=== PATIENT | female | born 1940 | race Caucasian/White ===

== ENCOUNTER 2016-10-03 19:12 | Inpatient (IN) | payer MEDICARE, MEDICAID ==
--- NOTE | 2016-10-03 20:36 | ED Physician Chart ---
Chief Complaint/HPI - Patient Information Date Seen:: 10/03/16 Time Seen:: 18:00 Chief Complaint:: CONFUSION History of Present Illness:: THIS IS A 76 YO FEMALE SENT FROM THE [facility] FOR A PSYCH EVALUATION AND TREATMENT BECAUSE OF HER CONFUSING BEHAVIOR. SHE HAS A HISTORY OF HTN DEMENTIA CVA AND MAJOR DEPRESSION. Historian:: Patient, Medical Records Review:: Nurse's Note Reviewed Review of Systems - Review of Systems General/Constitutional: Fever, No fever, No chills, No weight loss, No weakness , No diaphoresis, No edema, No loss of appetite, Other (THE PATIENT IS CONFUSED AND UNABLE TO GIVE A REVIEW OF SYSTEMS.) Skin: No skin lesions, No rash, No bruising Head: No headache, No light-headedness Eyes: No loss of vision, No pain, No diplopia ENT: No earache, No nasal drainage, No sore throat, No tinnitus Neck: No neck pain, No swelling, No thyromegaly, No stiffness, No mass noted Cardio Vascular: No chest pain, No palpitations, No PND, No orthopnea, No edema Pulmonary: No SOB, No cough, No sputum, No wheezing GI: No nausea, No vomiting, No diarrhea, No pain, No melena, No hematochezia, No constipation, No hematemesis G/U: No dysuria, No frequency, No hematuria Musculoskeletal: No bone or joint pain, No back pain, No muscle pain Endocrine: No polyuria, No polydipsia Psychiatric: No prior psych history, No depression, No anxiety, No suicidal ideation Hematopoietic: No bruising, No lymphadenopathy Allergic/Immuno: No urticaria, No angioedema Neurological: No syncope, No focal symptoms, No weakness, No paresthesia, No headache, No seizure, No dizziness, No confusion, No vertigo Past Medical History - Past Medical History Obtainable: Yes Past Medical History: CVA/TIA, Dyslipidemia, Dementia, Other (ANEMIA) Family History: None Social History: Non Smoker, No Alcohol, No Drug Use Family Medical History - Family Member Mother History Unknown: Yes Physical Exam - Physical Examination General/Constitutional: Awake, Well-developed, well-nourished, Alert, No distress, GCS 15, Non-toxic appearing, Ambulatory Other Gen/Cons comments:: THE PATIENT IS SCREAMING AND DISORIENTED TIMES 4 AND DOES NOT RESPOND TO VERBAL STIMULI SHE IS VERY DRY. Head: Atraumatic Eyes: Lids, conjuctiva normal, PERRL, EOMI Skin: Nl inspection, No rash, No skin lesions, No ecchymosis, Well hydrated, No lymphadenopathy ENMT: External ears, nose nl, Nasal exam nl, Lips, teeth, gums nl Neck: Nontender, Full ROM w/o pain, No JVD, No nuchal rigidity, No bruit, No mass, No stridor Respiratory: Nl effort/Exclusion Other Respiratory comments:: THERE ARE BILATERAL RHONCHI HEARD AND HILAR AREA DECREASE BREATH SOUNDS. Cardio Vascular: RRR, No murmur, gallop, rubs, NL S1 S2 GI: No tenderness/rebounding/guarding, No organomegaly, No hernia, Normal BS's, Nondistended, No mass/bruits, No McBurney tenderness : No CVA tenderness Other comments:: THE PATIENT IS INCONT OF URINE Extremities: No tenderness or effusion, Full ROM, normal strength in all extremities, No edema, Normal digits & nails Other Extremities comments:: THERE IS SIGNIFICANT MUSCLE WASTING IN ALL FOUR EXTREMITIES WITH MILD SPASTICITY. SHE HAS A RIGHT BK . Neuro/Psych: DTR's symmetric, Normal sensory exam, Normal motor strength, Judgement/insight normal, Mood normal, Normal gait, No focal deficits Other Neuro/Psych comments:: THIS PATIENT IS OBTUNDED INTERMITTENTLY AND DISORIENTED. Misc: normal gait, Normal back, No paraspinal tenderness Labs/Radiology/EKG Results - Lab Results Results: Abnormal Lab Results 10/03/16 10/03/16 10/03/16 20:08 20:08 20:08 WBC 9.6 RBC 3.29 L Hgb 8.5 L Hct 25.8 L MCV 78.3 L MCH 25.8 L MCHC Differential 32.9 RDW 19.4 Plt Count 261 MPV 8.0 Neutrophils % 76.9 Lymphocytes % 13.3 L Monocytes % 6.8 Eosinophils % 2.4 Basophils % 0.6 PT 12.2 H INR 1.21 Specimen Source Sample Site pH pCO2 pO2 HCO3 Base Excess O2 Saturation Will Test Vent Rate Inspired O2 Tidal Volume PEEP Pressure (ins/psv/peep) Critical Value Sodium Potassium Chloride Carbon Dioxide Anion Gap BUN Creatinine Est GFR ( Amer) Est GFR (Non-Af Amer) BUN/Creatinine Ratio Glucose Hemoglobin A1c % Calcium Total Bilirubin AST ALT Alkaline Phosphatase Troponin I Total Protein Albumin Globulin Albumin/Globulin Ratio Triglycerides 106 Cholesterol 97 LDL Cholesterol Direct 42 L HDL Cholesterol 38 TSH 10/03/16 10/03/16 10/03/16 20:08 20:08 20:08 WBC RBC Hgb Hct MCV MCH MCHC Differential RDW Plt Count MPV Neutrophils % Lymphocytes % Monocytes % Eosinophils % Basophils % PT INR Specimen Source Sample Site pH pCO2 pO2 HCO3 Base Excess O2 Saturation Will Test Vent Rate Inspired O2 Tidal Volume PEEP Pressure (ins/psv/peep) Critical Value Sodium 136 Potassium 6.5 H* Chloride 108 H Carbon Dioxide 26.5 Anion Gap 8.0 BUN 59 H Creatinine 2.8 H Est GFR ( Amer) TNP Est GFR (Non-Af Amer) TNP BUN/Creatinine Ratio 21.1 Glucose 195 H Hemoglobin A1c % Calcium 8.7 Total Bilirubin 0.4 AST 17 ALT 19 Alkaline Phosphatase 98 Troponin I 0.01 Total Protein 6.9 Albumin 3.3 L Globulin 3.6 Albumin/Globulin Ratio 0.9 L Triglycerides Cholesterol LDL Cholesterol Direct HDL Cholesterol TSH 14.69 H 10/03/16 10/03/16 20:08 22:01 WBC RBC Hgb Hct MCV MCH MCHC Differential RDW Plt Count MPV Neutrophils % Lymphocytes % Monocytes % Eosinophils % Basophils % PT INR Specimen Source arterial Sample Site right radial pH 7.36 pCO2 49.0 H pO2 58.0 L HCO3 27.7 H Base Excess 1.6 O2 Saturation 89.0 L Will Test yes Vent Rate n/a Inspired O2 21 Tidal Volume n/a PEEP n/a Pressure (ins/psv/peep) n/a Critical Value abroedel Sodium Potassium Chloride Carbon Dioxide Anion Gap BUN Creatinine Est GFR ( Amer) Est GFR (Non-Af Amer) BUN/Creatinine Ratio Glucose Hemoglobin A1c % 5.7 Calcium Total Bilirubin AST ALT Alkaline Phosphatase Troponin I Total Protein Albumin Globulin Albumin/Globulin Ratio Triglycerides Cholesterol LDL Cholesterol Direct HDL Cholesterol TSH - Radiology Results Results: CHEST X-RAY = BILATERAL INFILTRATES - EKG Interpretations EKG Time:: 23:20 Rhythm: SINUS [place]: LEFT Rate: 65 ED Septic Shock - . Is Septic Shock (SBP<90, OR Lactate>4 mmol\L) present?: No Reassessment (Disposition) - Patient Disposition Discharge/Transfer:: Acute Care w/in this hosp Admitting Medical Physician:: Austin Barragan Condition at Disposition:: Improved
[2016-10-03 20:47] LABS: % BASOPHILS 0.6 % (0.0-2.0); % EOSINOPHILS 2.4 % (0.0-5.0); % LYMPHOCYTES 13.3 % (20.0-50.0); % MONOCYTES 6.8 % (2.0-10.0); % NEUTROPHILS 76.9 % (40.0-80.0); HEMATOCRIT 25.8 % (35.0-45.0); HEMOGLOBIN 8.5 gm/dL (11.7-16.1); MEAN CELL VOLUME 78.3 fl (81-100); MEAN CORPUSCULAR HEMOGLOBIN 25.8 pg (27.0-31.0); MEAN CORPUSCULAR HGB CONC 32.9 pg (28.0-36.0); NEUTROPHILE ABSOLUTE 7.3 Th/cmm (1.8-8.0); PLATELET COUNT 261 Th/cmm (150-400); RED BLOOD COUNT 3.29 Mil/cmm (3.80-5.20); RED CELL DISTRIBUTION WIDTH 19.4 % (11.5-20.0); WHITE BLOOD COUNT 9.6 Th/cmm (4.8-10.8)
[2016-10-03 20:53] LABS: INR 1.21 (0.5-1.4); PROTHROMBIN TIME (TEST) 12.2 SECONDS (9.5-11.5)
[2016-10-03 21:03] LABS: ALB/GLOB RATIO 0.9 (1.0-1.8); ALKALINE PHOSPHATASE 98 U/L (34-104); BILIRUBIN,TOTAL 0.4 mg/dL (0.3-1.0); BUN - UREA NITROGEN 59 mg/dL (7-25); BUN/CREATININE RATIO 21.1; CALCIUM SERUM 8.7 mg/dL (8.6-10.3); CARBON DIOXIDE 26.5 mEq/L (21.0-31.0); CHLORIDE 108 mEq/L (98-107); CREATININE - SERUM 2.8 mg/dL (0.6-1.2); GLUCOSE 195 mg/dL (70-105); SGOT 17 U/L (13-39); SGPT/ALT 19 U/L (7-52); SODIUM SERUM 136 mEq/L (136-145)
[2016-10-03 21:04] LABS: CHOLESTEROL 97 mg/dL (<200); TRIGLYCERIDES 106 mg/dL (<150)
[2016-10-03 21:13] LABS: POTASSIUM SERUM 6.5 mEq/L (3.5-5.1)
[2016-10-03] MEDS ORDERED: Sodium Chloride 0.9% 1,000 ML IV ONE ×2 (21:52→23:43)
[2016-10-03] MEDS ORDERED: Dextrose 50% 50 mL Abboject IVP STA (21:53)
[2016-10-03] MEDS ORDERED: INSULIN HUMAN REGULAR 100 UNITS/ML UNIT IV ONE (21:55)
[2016-10-03] MEDS ORDERED: Dextrose 50% 50 mL Abboject IVP ONE (22:16)
[2016-10-03] MEDS ORDERED: INSULIN HUMAN REGULAR 100 UNITS/ML UNIT ONE (22:19)
[2016-10-03 22:33] LABS: pH 7.36 (7.35-7.45)
[2016-10-03 22:34] LABS: ALLEN TEST yes; BE(B) 1.6 mmol/L (-3.0-3.0); FIO2 21; HCO3 27.7 mmol/L (20.0-26.0)
[2016-10-03] MEDS ORDERED: Albuterol/Ipratropium Neb 3 ML AERS HHN ONE ×2 (22:50→22:58)
[2016-10-03] MEDS ORDERED: Sodium Chloride 0.45% 1,000 ML IV ONE (22:55)
[2016-10-03] MEDS ORDERED: Azithromycin 500 MG in Sodium Chloride 0.9% 250 ML IV ONE (22:57)
[2016-10-03 23:37] LABS: ANION GAP 4.7 (7.0-16.0); BUN - UREA NITROGEN 56 mg/dL (7-25); BUN/CREATININE RATIO 19.3; CALCIUM SERUM 8.3 mg/dL (8.6-10.3); CARBON DIOXIDE 26.8 mEq/L (21.0-31.0); CHLORIDE 112 mEq/L (98-107); CREATININE - SERUM 2.9 mg/dL (0.6-1.2); GLUCOSE 137 mg/dL (70-105); POTASSIUM SERUM 5.5 mEq/L (3.5-5.1); SODIUM SERUM 138 mEq/L (136-145)
[2016-10-04] MEDS ORDERED: Dextrose 50% 50 mL Abboject IVP STA (00:19)
[2016-10-04] MEDS ORDERED: Albuterol Nebulizer 2.5mg/3mL HHN PRN (00:38)
[2016-10-04] MEDS ORDERED: Albuterol Nebulizer 2.5mg/3mL HHN SCH (00:45)
[2016-10-04 06:10] LABS: % BASOPHILS 0.3 % (0.0-2.0); % EOSINOPHILS 1.2 % (0.0-5.0); % LYMPHOCYTES 10.9 % (20.0-50.0); % MONOCYTES 4.5 % (2.0-10.0); % NEUTROPHILS 83.1 % (40.0-80.0); HEMATOCRIT 25.4 % (35.0-45.0); HEMOGLOBIN 8.1 gm/dL (11.7-16.1); MEAN CELL VOLUME 78.2 fl (81-100); MEAN CORPUSCULAR HGB CONC 31.9 pg (28.0-36.0); MEAN PLATELET VOLUME 7.8 fl; PLATELET COUNT 241 Th/cmm (150-400); RED BLOOD COUNT 3.25 Mil/cmm (3.80-5.20); RED CELL DISTRIBUTION WIDTH 19.2 % (11.5-20.0); WHITE BLOOD COUNT 9.5 Th/cmm (4.8-10.8)
[2016-10-04] MEDS: INSULIN ASPART, RECOMBINANT 100 UNITS/ML SUBQ SCH ×4 (06:46→21:21)
[2016-10-04 07:23] LABS: ANION GAP 10.2 (7.0-16.0); BUN - UREA NITROGEN 53 mg/dL (7-25); BUN/CREATININE RATIO 18.9; CALCIUM SERUM 8.1 mg/dL (8.6-10.3); CHLORIDE 110 mEq/L (98-107); CREATININE - SERUM 2.8 mg/dL (0.6-1.2); GLUCOSE 69 mg/dL (70-105); SODIUM SERUM 139 mEq/L (136-145)
[2016-10-04 07:35] LABS: POTASSIUM SERUM 6.2 mEq/L (3.5-5.1)
[2016-10-04] MEDS ORDERED: Calcium Gluconate 1 GM in Sodium Chloride 0.9% 100 ML IV ONE ×2 (08:03→10:30)
[2016-10-04] MEDS ORDERED: Albuterol/Ipratropium Neb 3 ML AERS HHN PRN (08:09)
[2016-10-04] MEDS ORDERED: Albuterol Nebulizer 2.5mg/3mL HHN ONE ×2 (08:16→11:00)
[2016-10-04] MEDS ORDERED: Dextrose 5% 1,000 ML IV SCH (08:27)
[2016-10-04] MEDS ORDERED: Sodium Chloride 0.9% 1,000 ML IV SCH ×2 (08:29→09:15)
[2016-10-04] MEDS ORDERED: Non-Formulary Item 1 EA (Docusate Sodium [Docusate Sodium] 100 MG) PO SCH (09:00)
[2016-10-04] MEDS ORDERED: Non-Formulary Item 1 EA (Carvedilol [Coreg] 25 MG) PO SCH (09:00)
[2016-10-04] MEDS ORDERED: BIOTIN PO SCH (09:00)
[2016-10-04] MEDS ORDERED: VIT B CMPLX PO SCH (09:00)
[2016-10-04] MEDS ORDERED: [UNRECOGNIZED DRUG - OTHER] PO SCH (09:00)
--- NOTE | 2016-10-04 10:24 | Diagnostic Imaging Report ---
Portable chest x-ray HISTORY: Shortness of breath There is a poor inspiration. Accentuation and mild haziness of the interstitial lung markings. A mild degree of congestive heart failure cannot be excluded. Clinical correlation is needed. No definite focal processes. Extensive surgical changes noted over the heart. IMPRESSION: 1. Findings that may reflect a mild degree of congestive heart failure. Clinical correlation is needed. No definite focal pulmonary parenchymal processes.
--- NOTE | 2016-10-04 10:40 | Diagnostic Imaging Report ---
Portable chest x-ray HISTORY: Shortness of breath The heart is enlarged. Cardiac electrode lead wires project over the right atrium and right ventricle. There does appear to be degree pulmonary vascular redistribution consistent with an element of cardiac decompensation. No viet pulmonary edema. Question small left pleural effusion. Surgical suture material noted over the mid chest. IMPRESSION: 1. Cardiomegaly and surgical changes. A degree of congestive heart failure cannot be excluded. Surgical correlation is needed.
[2016-10-04 11:12] LABS: ABG SOURCE Arterial; BE(B) 1.1 mmol/L (-3.0-3.0); HCO3 26.6 mmol/L (20.0-26.0); pH 7.38 (7.35-7.45)
[2016-10-04 11:13] LABS: FIO2 28
[2016-10-04] MEDS ORDERED: Non-Formulary Item 1 EA (Levalbuterol Hcl [Xopenex] 0.63 MG) IH SCH (12:00)
--- NOTE | 2016-10-04 12:03 | Consultation ---
AGE: 76. SEX: Female. PHYSICIAN: Dr. Barragan. PRODUCT MANAGEMENT ANALYST: Dr. Payne. REASON FOR THE CONSULT: Agitation and yelling. HISTORY OF PRESENT ILLNESS: The patient is a 76-year-old female who fell down in [place] and was transferred to the hospital. The patient has been yelling and screaming constantly. The patient also has been crying. The patient was not able to follow any of the staff directions. The patient has been irritable and easily agitated. Dr. Barragan ordered MRI of the brain and the patient has been agitated and it was not done yet because of her agitation. Also, the patient is not eating. PAST PSYCHIATRIC HISTORY: The patient has history of ____ dementia. PAST MEDICAL HISTORY: As per Dr. Barragan. SOCIAL HISTORY: The patient lives in a penitentiary. The patient has a supportive daughter. No known alcohol or street drug use. ALLERGIES: No known allergies. MENTAL STATUS EXAM: The patient appears her stated age. Irritable mood. Yelling and screaming. The patient was not able to answer any of my questions because of her agitation and because of her irritability and might be because of her fall. The patient did not answer questions regarding suicide or homicide. The patient is alert, but unable to assess orientation or memory at this time. ASSESSMENT: PRIMARY DIAGNOSIS: Unspecified psychosis. SECONDARY DIAGNOSIS: Rule out brain injury secondary to fall with delirium. TREATMENT PLAN: We will start the patient on Seroquel and we will monitor the dose. Also, we will start the patient on Ativan on p.r.n. basis. We will monitor her behavior and her condition. If the patient is medically cleared, the patient can be transferred to [facility] if her behavior continues. Thanks to Dr. Barragan and will follow up with you. JOB# [id number]
[2016-10-04] MEDS: Pantoprazole 40 mg EC Tab PO SCH ×2 (12:41)
[2016-10-04] MEDS: Multivitamin Tab PO SCH (12:41)
[2016-10-04] MEDS: D5-0.45NS 1,000 ML IV SCH ×2 (16:23→21:22)
[2016-10-04 16:55] LABS: ANION GAP 7.5 (7.0-16.0); BUN - UREA NITROGEN 48 mg/dL (7-25); BUN/CREATININE RATIO 18.5; CALCIUM SERUM 8.9 mg/dL (8.6-10.3); CHLORIDE 111 mEq/L (98-107); CREATININE - SERUM 2.6 mg/dL (0.6-1.2); GLUCOSE 150 mg/dL (70-105); POTASSIUM SERUM 5.5 mEq/L (3.5-5.1); SODIUM SERUM 139 mEq/L (136-145)
[2016-10-04] MEDS: Atorvastatin Calcium 10 MG TAB PO SCH (20:23)
[2016-10-04] MEDS ORDERED: MELATONIN PO SCH (21:00)
[2016-10-05] MEDS: Azithromycin 250 MG in Sodium Chloride 0.9% 250 ML IV SCH (01:00)
[2016-10-05] MEDS: INSULIN ASPART, RECOMBINANT 100 UNITS/ML SUBQ SCH ×5 (06:37→21:09)
[2016-10-05] MEDS: Levothyroxine 0.05 Mg Tab PO SCH (06:41)
[2016-10-05 07:47] LABS: ALB/GLOB RATIO 0.9 (1.0-1.8); ALKALINE PHOSPHATASE 83 U/L (34-104); ANION GAP 9.8 (7.0-16.0); BILIRUBIN,TOTAL 0.4 mg/dL (0.3-1.0); BUN - UREA NITROGEN 41 mg/dL (7-25); BUN/CREATININE RATIO 17.8; CALCIUM SERUM 8.4 mg/dL (8.6-10.3); CARBON DIOXIDE 26.6 mEq/L (21.0-31.0); CHLORIDE 107 mEq/L (98-107); CREATININE - SERUM 2.3 mg/dL (0.6-1.2); GLUCOSE 140 mg/dL (70-105); MAGNESIUM 2.5 mg/dL (1.9-2.7); PHOSPHOROUS 4.4 mg/dL (2.5-5.0); POTASSIUM SERUM 4.4 mEq/L (3.5-5.1); SGOT 14 U/L (13-39); SGPT/ALT 14 U/L (7-52); SODIUM SERUM 139 mEq/L (136-145)
[2016-10-05 07:51] LABS: % BASOPHILS 0.4 % (0.0-2.0); % EOSINOPHILS 3.5 % (0.0-5.0); % LYMPHOCYTES 15.9 % (20.0-50.0); % MONOCYTES 5.6 % (2.0-10.0); % NEUTROPHILS 74.6 % (40.0-80.0); HEMOGLOBIN 8.5 gm/dL (11.7-16.1); MEAN CELL VOLUME 77.9 fl (81-100); MEAN CORPUSCULAR HEMOGLOBIN 25.4 pg (27.0-31.0); MEAN CORPUSCULAR HGB CONC 32.7 pg (28.0-36.0); MEAN PLATELET VOLUME 8.1 fl; NEUTROPHILE ABSOLUTE 5.8 Th/cmm (1.8-8.0); PLATELET COUNT 261 Th/cmm (150-400); RED BLOOD COUNT 3.34 Mil/cmm (3.80-5.20); RED CELL DISTRIBUTION WIDTH 19.6 % (11.5-20.0); WHITE BLOOD COUNT 7.7 Th/cmm (4.8-10.8)
[2016-10-05] MEDS: Multivitamin Tab PO SCH (08:33)
[2016-10-05] MEDS: Pantoprazole 40 mg EC Tab PO SCH ×2 (08:34→08:35)
--- NOTE | 2016-10-05 11:02 | Diagnostic Imaging Report ---
CT scan of the brain without intravenous contrast HISTORY: Stroke, CVA, trauma Total DLP equals 552 CTDI equals 30.4 Axial sections were obtained from the base of the skull to the vertex. Exam is limited due to difficulty in patient positioning. Patient is tilted. There is enlargement of the ventricular system along with enlargement of cerebral sulci and subarachnoid cisterns reflecting generalized atrophy. Analyzed hypodensity seen throughout the supratentorial white matter regions without mass effect consistent with probable chronic small vessel ischemic disease. Focal hypodensity extends through the right temporal and occipital regions of fine loss most likely related to encephalomalacia possibly related to an old infarct. No acute intracerebral hemorrhage. No mass effect or shift of midline structures. No extra-axial masses or abnormal fluid collections. The coastal thickening seen through the ethmoid sinuses. IMPRESSION: 1. Extensive encephalomalacia through the right temporal occipital regions probably related to an old infarct 2. Cerebral atrophy 3. Supratentorial white matter changes consistent with chronic small vessel ischemic disease 4. Mucosal thickening through the ethmoid sinuses
--- NOTE | 2016-10-05 11:04 | Diagnostic Imaging Report ---
Renal ultrasound HISTORY: Abnormal renal function tests The right kidney is decreased in size (8.0 x 4.4 x 4.6 cm). No focal lesions. No hydronephrosis. The left kidney is decreased in size (8.0 x 4.1 x 4.4 cm). No focal lesions. No hydronephrosis. Ascites is seen. Urinary bladder cannot be visualized due to lack of distention. IMPRESSION: 1. Diminished renal sizes. No hydronephrosis 2. Ascites
--- NOTE | 2016-10-05 11:18 | Diagnostic Imaging Report ---
Portable chest x-ray HISTORY: Shortness of breath Compared with prior exam 10/04/2016, the heart remains enlarged. Persistent density seen in left lower hemithorax that may be associated with pleural fluid. Underlying pneumonia and/or atelectasis cannot be excluded. IMPRESSION: 1. No change in the cardiopulmonary status as noted above
--- NOTE | 2016-10-05 11:23 | Diagnostic Imaging Report ---
Portable chest x-ray HISTORY: Shortness of breath, nasogastric tube placement Compared to prior exam taken earlier in the day, nasogastric tube is been inserted. The tip projects over the upper abdomen in the region of the stomach. No change in the cardiopulmonary status. IMPRESSION: 1. Nasogastric tube projecting over the upper mid abdomen presumably in the region of the stomach 2. No change in the cardiopulmonary status
--- NOTE | 2016-10-05 11:31 | Diagnostic Imaging Report ---
CT scan cervical spine HISTORY: Pain, trauma Total DLP equals 767 CTDI equals 43.0 Axial sections were obtained through the cervical spine. Additional sagittal and coronal reformatted images are provided. Exam is somewhat limited due to patient motion. There are diffuse degenerative changes with hypertrophic spur formation noted about the endplates of all vertebrae. The findings are most pronounced C5-6 and C6-7. No definite acute abnormalities. No fractures. The margins of the cervical spinal cord cannot be clearly visualized. A nasogastric tube traverses the cervical esophagus. Atherosclerotic vascular calcification seen in the region of the carotid arteries. Limited images through the upper chest demonstrate evidence of bilateral pleural effusions. IMPRESSION: 1. Diffuse degenerative changes 2. No acute bony abnormalities 2. Limited visualization of the upper chest demonstrates findings consistent with bilateral pleural effusions. A dedicated CT scan of the chest would provide for further assessment.
[2016-10-05 11:35] LABS: URINE BILIRUBIN NEGATIVE (NEGATIVE); URINE BLOOD TRACE (NEGATIVE); URINE COLOR YELLOW; URINE GLUCOSE (UA) NEGATIVE (NEGATIVE); URINE KETONE NEGATIVE (NEGATIVE); URINE PH 7.5; URINE PROTEIN TRACE mg/dL (NEGATIVE); URINE UROBILINOGEN 0.2 E.U./dL (0.2 - 1.0)
[2016-10-05 11:36] LABS: URINE BACTERIA NONE SEEN /hpf (NONE SEEN); URINE EPITHELIAL CELLS RARE /lpf (FEW); URINE RBC 0-2 /hpf (0-5); URINE WBC 0-2 /hpf (0-5)
--- NOTE | 2016-10-05 13:03 | Consultation ---
Patient of Dr. Barragan. Thank you very much Dr. Barragan for this consultation. HISTORY OF PRESENT ILLNESS: This is a 76-year-old female, retirement resident, who presented with altered level of consciousness, agitation. Apparently, the patient had a fall about 2 weeks ago and after that according to family, she has not been herself. The patient apparently had history of agitation in the past and it appears that she be allergic to some of the medications like Haldol and morphine. She appears to be calm now after Seroquel. Some congestion on and off, hypoxemia responded adequately to oxygen supplementation. SOCIAL HISTORY: retirement resident. No history of smoking, drinking. PAST MEDICAL HISTORY: Significant for hypertension, dementia. REVIEW OF SYSTEMS: Unable to obtain because of the patient's condition. PHYSICAL EXAMINATION: GENERAL: The patient is sleepy, arousable, not in distress. VITAL SIGNS: Temperature is 97.6, pulse 62, respiration is 18, blood pressure 150/70, saturation 100%. HEENT: Atraumatic, normocephalic. Pupils react to light and accommodation. Ears, nose and throat normal. NECK: Supple. No JVD. CHEST: There are good breath sounds. Few rhonchi at bases. HEART: Regular rate and rhythm. ABDOMEN: Soft. EXTREMITIES: No edema. LABORATORY DATA: WBC is 9.5, hemoglobin 8.1, hematocrit 25.4, platelets 241, ABGs, pH 7.38, pCO2 of 45, pO2 69, bicarb 26. Sodium is 139, potassium 5.5, creatinine 2.6. Chest x-ray: Mild congestion, no obvious infiltrate. IMPRESSION: This is a 76-year-old female with altered level of consciousness. She has acute renal failure and dehydration. She has possible early pneumonia, possible underlying dementia as well. PLAN: 1. Agree with IV dehydration and IV antibiotics. 2. Follow up chest x-ray. 3. Psych evaluation, avoid over sedation. 4. I will suggest also a C-spine CT at one point to rule out any abnormalities there secondary to recent fall. Thank you very much. I will follow the patient with you. JOB# [id number] CLARICE
[2016-10-05] MEDS ORDERED: D5-0.45NS 1,000 ML IV SCH (13:47)
[2016-10-05] MEDS: Ferrous Sulfate 300 MG/5 ML UDC PO SCH (17:12)
--- NOTE | 2016-10-05 19:15 | General Progress Note ---
Subjective - Review of Systems Service Date: 10/05/16 Subjective: Patient was seen and examined resting tolerating feeding afebrile breathing stable Objective - Results Result Diagrams: 10/05/16 06:29 10/05/16 06:29 Recent Labs: Laboratory Last Values WBC 7.7 Th/cmm (4.8-10.8) 10/05/16 06:29 RBC 3.34 Mil/cmm (3.80-5.20) L 10/05/16 06:29 Hgb 8.5 gm/dL (11.7-16.1) L 10/05/16 06:29 Hct 26.0 % (35.0-45.0) L 10/05/16 06:29 MCV 77.9 fl (81-100) L 10/05/16 06:29 MCH 25.4 pg (27.0-31.0) L 10/05/16 06:29 MCHC Differential 32.7 pg (28.0-36.0) 10/05/16 06:29 RDW 19.6 % (11.5-20.0) 10/05/16 06:29 Plt Count 261 Th/cmm (150-400) 10/05/16 06:29 MPV 8.1 fl 10/05/16 06:29 Neutrophils % 74.6 % (40.0-80.0) 10/05/16 06:29 Lymphocytes % 15.9 % (20.0-50.0) L 10/05/16 06:29 Monocytes % 5.6 % (2.0-10.0) 10/05/16 06:29 Eosinophils % 3.5 % (0.0-5.0) 10/05/16 06:29 Basophils % 0.4 % (0.0-2.0) 10/05/16 06:29 PT 12.2 SECONDS (9.5-11.5) H 10/03/16 20:08 INR 1.21 (0.5-1.4) 10/03/16 20:08 Specimen Source Arterial 10/04/16 10:49 Sample Site RB 10/04/16 10:49 pH 7.38 (7.35-7.45) 10/04/16 10:49 pCO2 45.0 mmHg (35.0-45.0) 10/04/16 10:49 pO2 69.0 mmHg (80.0-100.0) L 10/04/16 10:49 HCO3 26.6 mmol/L (20.0-26.0) H 10/04/16 10:49 Base Excess 1.1 mmol/L (-3.0-3.0) 10/04/16 10:49 O2 Saturation 93.0 % (92.0-100.0) 10/04/16 10:49 Will Test NA 10/04/16 10:49 Vent Rate NA 10/04/16 10:49 Inspired O2 28 10/04/16 10:49 Tidal Volume NA 10/04/16 10:49 PEEP NA 10/04/16 10:49 Pressure (ins/psv/peep) NA 10/04/16 10:49 Critical Value LZHANG 10/04/16 10:49 Sodium 139 mEq/L (136-145) 10/05/16 06:29 Potassium 4.4 mEq/L (3.5-5.1) 10/05/16 06:29 Chloride 107 mEq/L (98-107) 10/05/16 06:29 Carbon Dioxide 26.6 mEq/L (21.0-31.0) 10/05/16 06:29 Anion Gap 9.8 (7.0-16.0) 10/05/16 06:29 BUN 41 mg/dL (7-25) H 10/05/16 06:29 Creatinine 2.3 mg/dL (0.6-1.2) H 10/05/16 06:29 Est GFR ( Amer) TNP 10/05/16 06:29 Est GFR (Non-Af Amer) TNP 10/05/16 06:29 BUN/Creatinine Ratio 17.8 10/05/16 06:29 Glucose 140 mg/dL (70-105) H 10/05/16 06:29 POC Glucose 110 MG/DL (70 - 105) H 10/05/16 17:20 Hemoglobin A1c % 5.7 % (4.0-6.0) 10/03/16 20:08 Calcium 8.4 mg/dL (8.6-10.3) L 10/05/16 06:29 Phosphorus 4.4 mg/dL (2.5-5.0) 10/05/16 06:29 Magnesium 2.5 mg/dL (1.9-2.7) 10/05/16 06:29 Total Bilirubin 0.4 mg/dL (0.3-1.0) 10/05/16 06:29 AST 14 U/L (13-39) 10/05/16 06:29 ALT 14 U/L (7-52) 10/05/16 06:29 Alkaline Phosphatase 83 U/L (34-104) 10/05/16 06:29 Troponin I 0.01 ng/mL (0.01-0.05) 10/03/16 20:08 B-Natriuretic Peptide 2850.0 pg/mL (5.0-100.0) H 10/05/16 06:29 Total Protein 6.5 gm/dL (6.0-8.3) 10/05/16 06:29 Albumin 3.0 gm/dL (3.7-5.3) L 10/05/16 06:29 Globulin 3.5 gm/dL 10/05/16 06:29 Albumin/Globulin Ratio 0.9 (1.0-1.8) L 10/05/16 06:29 Triglycerides 106 mg/dL (<150) 10/03/16 20:08 Cholesterol 97 mg/dL (<200) 10/03/16 20:08 LDL Cholesterol Direct 42 mg/dL (75-193) L 10/03/16 20:08 HDL Cholesterol 38 mg/dL (23-92) 10/03/16 20:08 TSH 14.69 uIU/ml (0.34-5.60) H 10/03/16 20:08 Urine Source CLEAN C 10/05/16 10:45 Urine Color YELLOW 10/05/16 10:45 Urine Clarity SL. CLOUDY (CLEAR) 10/05/16 10:45 Urine pH 7.5 10/05/16 10:45 Ur Specific [place] 1.020 (1.005-1.030) 10/05/16 10:45 Urine Protein TRACE mg/dL (NEGATIVE) 10/05/16 10:45 Urine Glucose (UA) NEGATIVE mg/dL (NEGATIVE) 10/05/16 10:45 Urine Ketones NEGATIVE mg/dL (NEGATIVE) 10/05/16 10:45 Urine Blood TRACE (NEGATIVE) 10/05/16 10:45 Urine Nitrate NEGATIVE (NEGATIVE) 10/05/16 10:45 Urine Bilirubin NEGATIVE (NEGATIVE) 10/05/16 10:45 Urine Urobilinogen 0.2 E.U./dL (0.2 - 1.0) 10/05/16 10:45 Ur Leukocyte Esterase NEGATIVE (NEGATIVE) 10/05/16 10:45 Urine RBC 0-2 /hpf (0-5) 10/05/16 10:45 Urine WBC 0-2 /hpf (0-5) 10/05/16 10:45 Ur Epithelial Cells RARE /lpf (FEW) 10/05/16 10:45 Urine Bacteria NONE SEEN /hpf (NONE SEEN) 10/05/16 10:45 Stool Occult Blood NEGATIVE (NEGATIVE) 10/05/16 06:30 RPR NONREACTIVE (NONREACTIVE) 10/03/16 20:08 - Physical Exam Vitals and I&O: Vital Signs Temp 96.5 F 10/05/16 16:00 Pulse 61 10/05/16 17:12 Resp 18 10/05/16 16:00 BP 131/60 10/05/16 17:12 Pulse Ox 95 10/05/16 16:00 Intake & Output 10/05/16 10/05/16 10/06/16 06:59 18:59 06:59 Intake Total 722.917 150 Output Total 1550 1250 Balance -827.083 -1100 Intake: Intake, IV Amount 622.917 D5-0.45NS 1,000 ml @ 125 622.917 mls/hr IV .Q8H [facility] Rx#: [id number] Tube Feeding 50 Other 100 100 Output: Urine 1550 1250 Other: # Bowel Movements 2 0 Stool Characteristics Liquid Brown Active Medications: Current Medications Acetaminophen (Tylenol) 650 mg PO Q6HR PRN PRN Reason: Pain (Mild) Stop: 12/03/16 08:08 Albuterol Sulfate (Albuterol 2.5mg/3ml Neb Ud) 2.5 mg HHN Q2HR PRN PRN Reason: Shortness of Breath Stop: 12/03/16 00:35 Albuterol/Ipratropium (Duoneb Neb) 3 ml HHN Q2HR PRN PRN Reason: Shortness of Breath Stop: 12/03/16 08:08 Amlodipine Besylate (Norvasc) 5 mg PO DAILY [facility] Stop: 12/03/16 08:59 Last Admin: 10/05/16 08:33 Dose: 5 mg Atorvastatin Calcium (Lipitor) 10 mg PO HS CRISTIAN PRN Reason: Protocol Stop: 12/03/16 20:59 Last Admin: 10/04/16 20:23 Dose: 10 mg Calcitriol (Rocaltrol) 0.25 mcg PO DAILY [facility]IAN Stop: 12/05/16 08:59 Carvedilol (Coreg) 25 mg PO BID [facility]IAN Stop: 12/03/16 08:59 Last Admin: 10/05/16 17:12 Dose: 25 mg Docusate Sodium (Colace) 100 mg PO BID CRISTIAN Stop: 12/03/16 08:59 Last Admin: 10/05/16 17:12 Dose: 100 mg Donepezil HCl (Aricept) 5 mg PO HS C[facility]STIAN Stop: 12/03/16 20:59 Last Admin: 10/04/16 20:24 Dose: 5 mg Epoetin Suraj (Epogen) 10,000 units SUBQ MoWeFr [facility] Stop: 12/05/16 13:43 Ferrous Sulfate (Iron) 300 mg PO BID CRISTIAN Stop: 12/04/16 16:59 Last Admin: 10/05/16 17:12 Dose: 300 mg Folic Acid (Folate) 1 mg PO DAILY C[facility]STIAN Stop: 12/05/16 08:59 Azithromycin 250 mg/ Sodium (Chloride) 250 mls @ 250 mls/hr IV Q24HR [facility]ST[facility] Stop: 12/04/16 00:00 Last Admin: 10/05/16 01:00 Dose: 250 mls/hr Ceftriaxone Sodium 1 gm/ (Dextrose) 50 mls @ 100 mls/hr IV Q24H [facility] Stop: 12/03/16 21:59 Last Admin: 10/04/16 21:22 Dose: 100 mls/hr Insulin Aspart (Novolog) 0 units SUBQ ACHS CRISTIAN PRN Reason: Protocol Stop: 12/03/16 07:29 Last Admin: 10/05/16 16:40 Dose: Not Given Levothyroxine Sodium (Synthroid) 0.05 mg PO QDAC C[facility]STIAN Stop: 12/04/16 07:29 Last Admin: 10/05/16 06:41 Dose: 0.05 mg Lorazepam (Ativan) 0.5 mg PO Q6HR PRN; Protocol PRN Reason: Anxiety Stop: 12/03/16 08:08 Last Admin: 10/05/16 06:41 Dose: 0.5 mg Lorazepam (Ativan) 1 mg IVP Q4HR PRN; Protocol PRN Reason: Agitation Stop: 12/03/16 08:21 Last Admin: 10/05/16 01:25 Dose: 1 mg Multivitamins/Vitamin C (Theragran) 1 tab PO DAILY C[facility]IAN Stop: 12/03/16 08:59 Last Admin: 10/05/16 08:33 Dose: 1 tab Pantoprazole Sodium (Protonix) 40 mg PO DAILY C[facility]STIAN Stop: 12/03/16 08:59 Last Admin: 10/05/16 08:34 Dose: 40 mg Pantoprazole Sodium (Protonix) 40 mg PO DAILY CRISTIAN Stop: 12/03/16 08:59 Last Admin: 10/05/16 08:35 Dose: Not Given Quetiapine Fumarate (Seroquel) 25 mg PO BID CRISTIAN PRN Reason: Protocol Stop: 12/03/16 08:59 Last Admin: 10/05/16 18:08 Dose: Not Given Quetiapine Fumarate (Seroquel) 37.5 mg PO HS CRISTIAN PRN Reason: Protocol Stop: 12/03/16 20:59 Last Admin: 10/04/16 20:24 Dose: 37.5 mg Senna (Senna) 8.6 mg PO HS CRISTIAN Stop: 12/03/16 20:59 Last Admin: 10/04/16 20:24 Dose: 8.6 mg Tramadol HCl (Ultram) 50 mg PO Q8HR PRN PRN Reason: Pain (Moderate) Stop: 12/03/16 08:08 Last Admin: 10/04/16 20:24 Dose: 50 mg Cardiovascular: Regular rate Lungs: Clear to auscultation, Other Abdomen: Soft Neurological: Other (confused) Assessment/Plan - Assessment Assessment: Altered mental state ? etiology ? worsening dementia Hypoxemia [place] CHF HTN Hypothyroidism Hyperlipidemia Diabetes Old CVA Psych disorder Debitly - Plan Plan: Continue antibiotics HHN/ oxygen support DC IV Fluids ( elevated BNP) CT head and C spine reviewed no acute finding reported Monitor renal function Pulmonary and Neprhology on board 24 hr urine collection for protein and creatinine Tube feeding Plan of care discussed with nursing staff
--- NOTE | 2016-10-05 20:04 | History & Physical ---
CHIEF COMPLAINT: Altered mental status. HISTORY OF PRESENT ILLNESS: This 76-year-old female with underlying history of prior CVA, hypertension, diabetes mellitus, hyperlipidemia, Alzheimer dementia, who resides at nursing facility, was brought into the Emergency Room at [facility] for evaluation of the altered mental status. The patient was evaluated in the Emergency Room, noticed to have hypoxemia, possibility of pneumonia, dehydration and acute renal failure. So patient admitted to the hospital, for further evaluation and treatment. At the time of evaluation, the patient was awake, but confused, unable to communicate. I also left message to her daughter to communicate, but I have not received any phone call back. Most of the history obtained by reviewing the available medical records and discussion with the ER physician and nursing staff. According to the report, family reported that patient had a fall about 2 weeks ago at the nursing facility. Since then she started noticing some behavioral changes. No reported injury per [facility] report. PAST MEDICAL HISTORY: Hypertension, old CVA, hyperlipidemia, dementia, diabetes mellitus and chronic kidney disease. PAST SURGICAL HISTORY: No reports of past surgical history. FAMILY HISTORY: Noncontributory. SOCIAL HISTORY: Lives in a nursing facility. No reported alcohol, tobacco or street drug use. CURRENT MEDICATIONS: At home, the patient was on pantoprazole, melatonin, lorazepam, Xopenex, ipratropium, Aricept, docusate, Coreg, atorvastatin, Lasix, potassium, insulin, hydrocortisone cream, tramadol, vitamin B complex and amlodipine. REVIEW OF SYSTEMS: Unobtainable as this patient is confused and unable to communicate. PHYSICAL EXAMINATION: VITAL SIGNS: Upon admission 97.5, pulse 83, respirations 20, blood pressure 131/76, oxygen saturation is 99% through nasal cannula. GENERAL APPEARANCE: The patient does not seem in acute distress. CARDIOVASCULAR: S1, S2 normal. LUNGS: Bilateral few rales noted. ABDOMEN: Soft, nontender. NEUROLOGIC: The patient is awake, but confused, grossly nonfocal. EXTREMITIES: No edema noted. CURRENT LABORATORY DATA: WBC is 7.7, hemoglobin 8.5, hematocrit 26.0. Sodium 139, potassium 4.4, BUN 41, creatinine 2.3, sugar 140, calcium 8.4. BNP is 2850. Stool occult blood negative. Blood gas pH 7.36, pCO2 of 45, PO2 of 69, bicarbonate 26, chest x-ray, pleural effusion, no definite infiltrate noted. Head CT negative for any acute findings. C-spine CT, no acute findings. ASSESSMENT: 1.Altered mental status, questionable etiology. 2.Veukm-cq-qwxirtc kidney disease. 3.Severe hyperkalemia, improved. 4.Hypertension. 5.Hypothyroidism. 6.Hyperlipidemia. 7.Diabetes mellitus. 8.Advanced dementia. 9.Psychiatric disorders. PLAN: The patient admitted tele unit. The patient was started on IV fluids, hydration. Renal function started improving. Pulmonology, Nephrology was consulted. The patient is on IV antibiotic and nebulizer treatment, oxygen support. Psych was also consulted. The patient is currently on Seroquel. The patient's behavior appeared stable. The patient has no evidence of any acute neurological findings noted per head CT. Blood cultures negative for any preliminary growth. We will monitor the patient's labs and vitals closely. Nebulized treatment will be given. The patient's condition ____ with nursing staff. [facility]# [id number]
[2016-10-05] MEDS: Atorvastatin Calcium 10 MG TAB PO SCH (20:59)
[2016-10-06] MEDS: Azithromycin 250 MG in Sodium Chloride 0.9% 250 ML IV SCH (00:42)
[2016-10-06] MEDS: Levothyroxine 0.05 Mg Tab PO SCH (06:32)
[2016-10-06] MEDS: INSULIN ASPART, RECOMBINANT 100 UNITS/ML SUBQ SCH ×4 (06:33→20:58)
[2016-10-06 08:03] LABS: HEMATOCRIT 24.3 % (35.0-45.0); RED CELL DISTRIBUTION WIDTH 19.2 % (11.5-20.0)
[2016-10-06 08:10] LABS: % BASOPHILS 0.8 % (0.0-2.0); % EOSINOPHILS 4.1 % (0.0-5.0); % MONOCYTES 7.6 % (2.0-10.0); % NEUTROPHILS 74.5 % (40.0-80.0); MEAN CELL VOLUME 77.7 fl (81-100); MEAN CORPUSCULAR HEMOGLOBIN 25.2 pg (27.0-31.0); MEAN CORPUSCULAR HGB CONC 32.4 pg (28.0-36.0); MEAN PLATELET VOLUME 7.8 fl; NEUTROPHILE ABSOLUTE 5.4 Th/cmm (1.8-8.0); PLATELET COUNT 224 Th/cmm (150-400); RED BLOOD COUNT 3.13 Mil/cmm (3.80-5.20); WHITE BLOOD COUNT 7.4 Th/cmm (4.8-10.8)
[2016-10-06 08:17] LABS: BUN - UREA NITROGEN 36 mg/dL (7-25); BUN/CREATININE RATIO 18.9; CARBON DIOXIDE 24.6 mEq/L (21.0-31.0); CHLORIDE 109 mEq/L (98-107); CREATININE - SERUM 1.9 mg/dL (0.6-1.2); GLUCOSE 106 mg/dL (70-105); POTASSIUM SERUM 4.6 mEq/L (3.5-5.1); SODIUM SERUM 136 mEq/L (136-145)
[2016-10-06 08:19] LABS: HEMOGLOBIN 7.9 gm/dL (11.7-16.1)
[2016-10-06] MEDS: Ferrous Sulfate 300 MG/5 ML UDC PO SCH ×2 (09:28→16:30)
[2016-10-06] MEDS: Multivitamin Tab PO SCH (09:28)
[2016-10-06] MEDS: Pantoprazole 40 mg EC Tab PO SCH ×2 (09:28→09:30)
[2016-10-06 11:15] LABS: IRON SATURATION 8 % (15-55); TIBC (LCI) 237 ug/dL (250-450); UIBC 217 ug/dL (118-369)
--- NOTE | 2016-10-06 12:17 | Diagnostic Imaging Report ---
Portable chest x-ray HISTORY: Congestive heart failure Compared with prior exam of 10/05/2016, the heart remains enlarged. Evidence persistent left pleural effusion. IMPRESSION: 1. No change in the cardiopulmonary status with persistent cardiomegaly and evidence for left pleural effusion. Findings may be associated with congestive heart failure. Underlying pneumonia cannot be excluded. Clinical correlation is needed.
[2016-10-06 12:43] LABS: SURFACE AREA 1.47
--- NOTE | 2016-10-06 12:50 | Consultation ---
RENAL CONSULT [facility] ROOM NUMBER: 15, Bed 1 ATTENDING PHYSICIAN: Dr. Barragan. I thank you very much Dr. Barragan for allowing me to participate in the management of this patient of yours. IDENTIFICATION: A 76-year-old female patient is demented. History has been taken by reviewing the old chart and long term records. HISTORY OF PRESENT ILLNESS: This is a 76-year-old female patient who is known case of insulin-dependent diabetes mellitus, hypertension, CHF, and possible chronic anemia. The patient has a history of CVA and poor intake. The patient was brought to the Emergency Room with change in mental status, cough, fever, and was found to have acute bronchitis. History is also significant for anorexia, dysphagia, and poor intake for last many days. Upon evaluation in the Emergency Room, the patient was found to have acute bronchitis, renal failure, and hyperkalemia. The patient has been admitted. Renal consultation has been requested. The patient's initial potassium was 5.2, which increased to 6.2. The patient had a dysphagia and so NG tube has been inserted. Nicholson catheter has been inserted with about 600 of urine output in last 8 hours. The patient is receiving IV fluids. Initially, the patient was treated with breathing treatment and sodium bicarbonate IV for hyperkalemia. MEDICATIONS IN GROUP HOME: List is not available to me at this time. PAST MEDICAL AND SURGICAL HISTORY: History of diabetes mellitus, dementia, CKD, possible CVA, dysphagia, and anemia. SOCIAL HISTORY: No history of alcoholism or smoking. PHYSICAL EXAMINATION: VITAL SIGNS: Temperature 97, heart rate 60, blood pressure 132/93, respiration rate 20. Intake not available. HEENT: Head is normocephalic and atraumatic. Ears, throat, and nose, no bleeding or discharge. NECK: No stiffness. Jugular venous pressure not distended. HEART: Regular. No rub or gallop. LUNGS: Rhonchi on the right base. ABDOMEN: Soft, not distended. Bowel sounds present. No flank tenderness. EXTREMITIES: No edema. The patient has obvious muscle wasting. SIGNIFICANT LABORATORY DATA: Hemoglobin 8.1, WBC 9.5, and platelet 241,000. PT/INR 1.2, pCO2 of 45, pO2 69. pH 7.3 and bicarbonate 26. Sodium 139, potassium 6.2, chloride 110, CO2 of 25, BUN 53, creatinine 2.8, and glucose 69. Hemoglobin A1c 5.7, calcium 8.1, albumin 3.3. LDL 42, triglyceride 106, HDL 38. TSH 14.6. No other lab is available. ASSESSMENT: 1. Hyperkalemia. 2. Acute kidney injury. 3. Volume depletion. 4. Dementia. 5. Diabetes mellitus. 6. Hypothyroidism. 7. History of depression. 8. History of cerebrovascular accident. 9. Dysphagia. 10. Anemia, possibly secondary to chronic kidney disease. 11. Hypoxia. 12. Hypocalcemia. 13. Hypoalbuminemia. 14. Acute bronchitis. PLAN: IV hydration will be started. We will give Kayexalate through NG tube. I will give calcium gluconate IV and sodium bicarbonate IV for hyperkalemia. Obtain kidney ultrasound, urinalysis. Start the patient on water NG tube. Anemia workup will be started. We will also obtain 24-hour urine for protein and creatinine clearance. Case has been discussed with nursing staff at length. I will follow this patient with you very closely. I thank you very much Dr. Barragan for this consult. JOB# [id number]
[2016-10-06] MEDS: Epoetin Alfa 20000 Units/mL Vial SUBQ SCH (14:41)
--- NOTE | 2016-10-06 19:32 | Cardiology ---
The patient of Dr. Austin Barragan. M-MODE ECHOCARDIOGRAM: Mitral valve, anterior leaflet of mitral valve shows normal excursion, EF velocity. Posterior leaflet of mitral valve shows normal excursion. Left ventricular posterior wall shows increased thickness, normal excursion. Interventricular septum shows increased thickness, normal excursion, hypertrophy of the left ventricle, ejection fraction 40%. Left atrium normal. Aortic root shows normal dimension, normal excursion of aortic leaflets. CONCLUSION: Enlarged left ventricular cavity with decreased ejection fraction. 2D ECHO: Long-axis view shows enlarged left ventricular cavity with decreased ejection fraction, hypertrophy of the left ventricle. Left atrium enlarged. Aortic root shows normal dimension, normal excursion of aortic leaflets. Short-axis view of mitral valve normal. Short-axis view of aortic valve normal. Apical four-chamber view shows enlarged left ventricular cavity with decreased ejection fraction. Left atrium enlarged. Right ventricular cavity, right atrium normal. No pericardial effusion, ejection fraction 40%. Doppler study shows prominent A wave consistent with poor compliance of left ventricle, [id number] triscuspid regurgitation, trace aortic regurgitation, mitral regurgitation, and pleural effusion. JOB# [id number]
--- NOTE | 2016-10-06 19:37 | General Progress Note ---
Subjective - Review of Systems Service Date: 10/06/16 Subjective: Patient was seen and examined resting tolerating feeding afebrile breathing stable Objective - Results Result Diagrams: 10/06/16 07:20 10/06/16 07:20 Recent Labs: Laboratory Last Values WBC 7.4 Th/cmm (4.8-10.8) 10/06/16 07:20 RBC 3.13 Mil/cmm (3.80-5.20) L 10/06/16 07:20 Hgb 7.9 gm/dL (11.7-16.1) L* 10/06/16 07:20 Hct 24.3 % (35.0-45.0) L 10/06/16 07:20 MCV 77.7 fl (81-100) L 10/06/16 07:20 MCH 25.2 pg (27.0-31.0) L 10/06/16 07:20 MCHC Differential 32.4 pg (28.0-36.0) 10/06/16 07:20 RDW 19.2 % (11.5-20.0) 10/06/16 07:20 Plt Count 224 Th/cmm (150-400) 10/06/16 07:20 MPV 7.8 fl 10/06/16 07:20 Neutrophils % 74.5 % (40.0-80.0) 10/06/16 07:20 Lymphocytes % 13.0 % (20.0-50.0) L 10/06/16 07:20 Monocytes % 7.6 % (2.0-10.0) 10/06/16 07:20 Eosinophils % 4.1 % (0.0-5.0) 10/06/16 07:20 Basophils % 0.8 % (0.0-2.0) 10/06/16 07:20 PT 12.2 SECONDS (9.5-11.5) H 10/03/16 20:08 INR 1.21 (0.5-1.4) 10/03/16 20:08 Specimen Source Arterial 10/04/16 10:49 Sample Site RB 10/04/16 10:49 pH 7.38 (7.35-7.45) 10/04/16 10:49 pCO2 45.0 mmHg (35.0-45.0) 10/04/16 10:49 pO2 69.0 mmHg (80.0-100.0) L 10/04/16 10:49 HCO3 26.6 mmol/L (20.0-26.0) H 10/04/16 10:49 Base Excess 1.1 mmol/L (-3.0-3.0) 10/04/16 10:49 O2 Saturation 93.0 % (92.0-100.0) 10/04/16 10:49 Will Test NA 10/04/16 10:49 Vent Rate NA 10/04/16 10:49 Inspired O2 28 10/04/16 10:49 Tidal Volume NA 10/04/16 10:49 PEEP NA 10/04/16 10:49 Pressure (ins/psv/peep) NA 10/04/16 10:49 Critical Value LZHANG 10/04/16 10:49 Sodium 136 mEq/L (136-145) 10/06/16 07:20 Potassium 4.6 mEq/L (3.5-5.1) 10/06/16 07:20 Chloride 109 mEq/L (98-107) H 10/06/16 07:20 Carbon Dioxide 24.6 mEq/L (21.0-31.0) 10/06/16 07:20 Anion Gap 7.0 (7.0-16.0) 10/06/16 07:20 BUN 36 mg/dL (7-25) H 10/06/16 07:20 Creatinine 1.9 mg/dL (0.6-1.2) H 10/06/16 07:20 Est GFR ( Amer) TNP 10/06/16 07:20 Est GFR (Non-Af Amer) TNP 10/06/16 07:20 BUN/Creatinine Ratio 18.9 10/06/16 07:20 Glucose 106 mg/dL (70-105) H 10/06/16 07:20 POC Glucose 148 MG/DL (70 - 105) H 10/06/16 16:32 Hemoglobin A1c % 5.7 % (4.0-6.0) 10/03/16 20:08 Calcium 8.0 mg/dL (8.6-10.3) L 10/06/16 07:20 Phosphorus 4.4 mg/dL (2.5-5.0) 10/05/16 06:29 Magnesium 2.5 mg/dL (1.9-2.7) 10/05/16 06:29 Iron 20 ug/dL (27-139) L 10/05/16 06:29 TIBC 237 ug/dL (250-450) L 10/05/16 06:29 Iron Saturation 8 % (15-55) L 10/05/16 06:29 Unsaturated IBC 217 ug/dL (118-369) 10/05/16 06:29 Total Bilirubin 0.4 mg/dL (0.3-1.0) 10/05/16 06:29 AST 14 U/L (13-39) 10/05/16 06:29 ALT 14 U/L (7-52) 10/05/16 06:29 Alkaline Phosphatase 83 U/L (34-104) 10/05/16 06:29 Troponin I 0.01 ng/mL (0.01-0.05) 10/03/16 20:08 B-Natriuretic Peptide 2850.0 pg/mL (5.0-100.0) H 10/05/16 06:29 Total Protein 6.5 gm/dL (6.0-8.3) 10/05/16 06:29 Albumin 3.0 gm/dL (3.7-5.3) L 10/05/16 06:29 Globulin 3.5 gm/dL 10/05/16 06:29 Albumin/Globulin Ratio 0.9 (1.0-1.8) L 10/05/16 06:29 Triglycerides 106 mg/dL (<150) 10/03/16 20:08 Cholesterol 97 mg/dL (<200) 10/03/16 20:08 LDL Cholesterol Direct 42 mg/dL (75-193) L 10/03/16 20:08 HDL Cholesterol 38 mg/dL (23-92) 10/03/16 20:08 TSH 14.69 uIU/ml (0.34-5.60) H 10/03/16 20:08 Urine Source CLEAN C 10/05/16 10:45 Urine Color YELLOW 10/05/16 10:45 Urine Clarity SL. CLOUDY (CLEAR) 10/05/16 10:45 Urine pH 7.5 10/05/16 10:45 Ur Specific [place] 1.020 (1.005-1.030) 10/05/16 10:45 Urine Protein TRACE mg/dL (NEGATIVE) 10/05/16 10:45 Urine Glucose (UA) NEGATIVE mg/dL (NEGATIVE) 10/05/16 10:45 Urine Ketones NEGATIVE mg/dL (NEGATIVE) 10/05/16 10:45 Urine Blood TRACE (NEGATIVE) 10/05/16 10:45 Urine Nitrate NEGATIVE (NEGATIVE) 10/05/16 10:45 Urine Bilirubin NEGATIVE (NEGATIVE) 10/05/16 10:45 Urine Urobilinogen 0.2 E.U./dL (0.2 - 1.0) 10/05/16 10:45 Ur Leukocyte Esterase NEGATIVE (NEGATIVE) 10/05/16 10:45 Urine RBC 0-2 /hpf (0-5) 10/05/16 10:45 Urine WBC 0-2 /hpf (0-5) 10/05/16 10:45 Ur Epithelial Cells RARE /lpf (FEW) 10/05/16 10:45 Urine Bacteria NONE SEEN /hpf (NONE SEEN) 10/05/16 10:45 U Random Total Protein 34.0 mg/dL 10/06/16 06:00 Urine Collection Time 24 hours 10/06/16 06:00 Urine Total Volume 1850 ml 10/06/16 06:00 Urine Creatinine 23.0 mg/dl (28.0-217.0) L 10/06/16 06:00 Creat Clearance 24 Hr 18 ml/min (88.00-128.00) L 10/06/16 06:00 U Tot Protein 24h, Calc 629.0 mg/24 hr (0-165) H 10/06/16 06:00 Body Surface Area 1.47 10/06/16 06:00 Stool Occult Blood NEGATIVE (NEGATIVE) 10/05/16 06:30 RPR NONREACTIVE (NONREACTIVE) 10/03/16 20:08 - Physical Exam Vitals and I&O: Vital Signs Temp 97.2 F 10/06/16 16:00 Pulse 60 10/06/16 19:27 Resp 20 10/06/16 19:27 BP 123/59 10/06/16 16:30 Pulse Ox 98 10/06/16 19:27 Intake & Output 10/06/16 10/06/16 10/07/16 06:59 18:59 06:59 Intake Total 1280 980 Output Total 800 700 Balance 480 280 Intake: Intake, IV Amount 300 Azithromycin 250 mg In 250 Sodium Chloride 0.9% 250 ml @ 250 mls/hr IV Q24HR [facility] Rx#:[id number] cefTRIAXone 1 gm In 50 Dextrose 5% 50 ml @ 100 mls/hr IV Q24H [facility] Rx#: [id number] Oral 0 Tube Feeding 480 980 Other 500 Output: Urine 800 700 Other: # Bowel Movements 0 3 Active Medications: Current Medications Acetaminophen (Tylenol) 650 mg PO Q6HR PRN PRN Reason: Pain (Mild) Stop: 12/03/16 08:08 Last Admin: 10/06/16 18:38 Dose: 650 mg Albuterol Sulfate (Albuterol 2.5mg/3ml Neb Ud) 2.5 mg HHN Q2HR PRN PRN Reason: Shortness of Breath Stop: 12/03/16 00:35 Albuterol/Ipratropium (Duoneb Neb) 3 ml HHN Q2HR PRN PRN Reason: Shortness of Breath Stop: 12/03/16 08:08 Amlodipine Besylate (Norvasc) 5 mg PO DAILY [facility] Stop: 12/03/16 08:59 Last Admin: 10/06/16 09:29 Dose: Not Given Atorvastatin Calcium (Lipitor) 10 mg PO HS [facility] PRN Reason: Protocol Stop: 12/03/16 20:59 Last Admin: 10/05/16 20:59 Dose: 10 mg Calcitriol (Rocaltrol) 0.25 mcg PO DAILY [facility] Stop: 12/05/16 08:59 Last Admin: 10/06/16 09:29 Dose: 0.25 mcg Carvedilol (Coreg) 25 mg PO BID [facility] Stop: 12/03/16 08:59 Last Admin: 10/06/16 16:30 Dose: Not Given Docusate Sodium (Colace) 100 mg PO BID [facility] Stop: 12/03/16 08:59 Last Admin: 10/06/16 16:30 Dose: 100 mg Donepezil HCl (Aricept) 5 mg PO HS [facility] Stop: 12/03/16 20:59 Last Admin: 10/05/16 20:59 Dose: 5 mg Epoetin Suraj (Epogen) 10,000 units SUBQ MoWeFr [facility] Stop: 12/05/16 13:43 Last Admin: 10/06/16 14:41 Dose: 10,000 units Ferrous Sulfate (Iron) 300 mg PO BID [facility] Stop: 12/04/16 16:59 Last Admin: 10/06/16 16:30 Dose: 300 mg Folic Acid (Folate) 1 mg PO DAILY [facility] Stop: 12/05/16 08:59 Last Admin: 10/06/16 09:29 Dose: 1 mg Azithromycin 250 mg/ Sodium (Chloride) 250 mls @ 250 mls/hr IV Q24HR [facility] Stop: 12/04/16 00:00 Last Infusion: 10/06/16 01:42 Dose: Infused Ceftriaxone Sodium 1 gm/ (Dextrose) 50 mls @ 100 mls/hr IV Q24H [facility] Stop: 12/03/16 21:59 Last Infusion: 10/05/16 21:41 Dose: Infused Insulin Aspart (Novolog) 0 units SUBQ ACHS [facility] PRN Reason: Protocol Stop: 12/03/16 07:29 Last Admin: 10/06/16 16:33 Dose: Not Given Levothyroxine Sodium (Synthroid) 0.05 mg PO QDAC [facility] Stop: 12/04/16 07:29 Last Admin: 10/06/16 06:32 Dose: 0.05 mg Lorazepam (Ativan) 0.5 mg PO Q6HR PRN; Protocol PRN Reason: Anxiety Stop: 12/03/16 08:08 Last Admin: 10/06/16 18:38 Dose: 0.5 mg Lorazepam (Ativan) 1 mg IVP Q4HR PRN; Protocol PRN Reason: Agitation Stop: 12/03/16 08:21 Last Admin: 10/06/16 00:42 Dose: 1 mg Multivitamins/Vitamin C (Theragran) 1 tab PO DAILY [facility] Stop: 12/03/16 08:59 Last Admin: 10/06/16 09:28 Dose: 1 tab Pantoprazole Sodium (Protonix) 40 mg PO DAILY [facility] Stop: 12/03/16 08:59 Last Admin: 10/06/16 09:28 Dose: 40 mg Pantoprazole Sodium (Protonix) 40 mg PO DAILY [facility] Stop: 12/03/16 08:59 Last Admin: 10/06/16 09:30 Dose: Not Given Quetiapine Fumarate (Seroquel) 25 mg PO BID [facility] PRN Reason: Protocol Stop: 12/03/16 08:59 Last Admin: 10/06/16 16:30 Dose: 25 mg Quetiapine Fumarate (Seroquel) 37.5 mg PO HS [facility] PRN Reason: Protocol Stop: 12/03/16 20:59 Last Admin: 10/05/16 21:00 Dose: 37.5 mg Senna (Senna) 8.6 mg PO HS [facility] Stop: 12/03/16 20:59 Last Admin: 10/05/16 21:00 Dose: 8.6 mg Tramadol HCl (Ultram) 50 mg PO Q8HR PRN PRN Reason: Pain (Moderate) Stop: 12/03/16 08:08 Last Admin: 10/04/16 20:24 Dose: 50 mg Cardiovascular: Normal S1, Normal S2 Lungs: Clear to auscultation, Other Abdomen: Soft, no Tender Assessment/Plan - Assessment Assessment: Altered mental state ? etiology ? worsening dementia Hypoxemia Pnemonia CHF HTN Hypothyroidism Hyperlipidemia Diabetes Old CVA Psych disorder Debitly - Plan Plan: Continue antibiotics HHN/ oxygen support DC IV Fluids ( elevated BNP) ECHO EF 40% CT head and C spine reviewed no acute finding reported Monitor renal function Pulmonary and Neprhology on board 24 hr urine collection for protein and creatinine Tube feeding Plan of care discussed with nursing staff
[2016-10-06] MEDS: Atorvastatin Calcium 10 MG TAB PO SCH (20:09)
--- NOTE | 2016-10-07 00:09 | Admit Criteria Form ---
Admit Criteria Forms - Admit Criteria Diagnosis: RENAL FAILURE, CHRONIC Clinical Indications for Admission to Inpatient Care (Place 'X' for any and all applicable criteria): Admission is indicated for ANY ONE of the following (1)(2)(3)(4)(5): [x ]I. Inpatient admission required rather than observation care (Use Renal Failure, Chronic: Observation Care Criteria as appropriate) because of ANY ONE of the following: [ ]a) Volume overload or uremic symptoms (eg, clinically significant pulmonary edema, hypertension, pericarditis, acidosis) too severe for, or not responsive (eg, for over 24 hours) to emergency department or observation care dialysis or treatment regimen (11) [ ]b) Hemodynamic instability that is severe or persistent [ ]c) Respiratory distress that is severe or persistent (11) [ ]d) Clinically significant electrolyte abnormality that requires inpatient care (eg,hyperkalemia with severe ECG findings)[B] [ ]e) Supplement O2 or respiratory therapy for over 24hrs that is performable only in acute inpatient setting [ ]f) Continuous IV infusion of anticoagulation, platelet inhibitor, vasoactive, or Antiarrhythmic medication (15), [ ]g) Pulmonary artery catheter monitoring [ ]h) Temporary pacemaker placement [ ]i) Emergent pericardiocentesis [ x]j) Other condition, treatment or monitoring requiring inpatient admission [ ]II. Unexplained syncope [A] [ ]III. Recurrent seizures [ ]IV. Severe infections not treatable in outpatient setting (eg, peritonitis)(9 ) [ ]V. Cardiac arrhythmias of immediate concern [ ]. Encephalopathy [ ]VII.Bleeding abnormalities (eg, platelet dysfunction) with active (eg, gastrointestinal) bleeding Extended stay beyond goal length of stay may be needed for (3)(4)(35)(36): [ ]a) Continuing uremic complications [ ]b) Comorbidities or complications The original [employer] content created by [employer] has been revised. The portions of the content which have been revised are identified through the use of italic text or in bold, and [employer] has neither reviewed nor approved the modified material. All other unmodified content is copyright [employer]. Please see references footnoted in the original [employer] edition 2016
[2016-10-07] MEDS: Azithromycin 250 MG in Sodium Chloride 0.9% 250 ML IV SCH (00:10)
--- NOTE | 2016-10-07 00:53 | Progress Notes ---
Covering for Dr. Payne. Case was discussed with staff of the patient, reviewed records. The patient was seen by Dr. Payne and she was diagnosed with psychosis, started her on Seroquel. The patient is a poor historian. Continues to be unable to carrying out conversation or make safe plan for self-care. Continues to have episodes of agitation, but she is starting to show progress. She is compliant with the medication with no side effects, no sedation, and no nausea. Thank you very much for allowing me to participate in the care of this most interesting lady. JOB# [id number]
[2016-10-07] MEDS: Levothyroxine 0.05 Mg Tab PO SCH (06:32)
[2016-10-07] MEDS: INSULIN ASPART, RECOMBINANT 100 UNITS/ML SUBQ SCH ×4 (06:33→20:14)
[2016-10-07 07:53] LABS: % BASOPHILS 0.3 % (0.0-2.0); % EOSINOPHILS 3.8 % (0.0-5.0); % LYMPHOCYTES 11.5 % (20.0-50.0); % MONOCYTES 7.2 % (2.0-10.0); % NEUTROPHILS 77.2 % (40.0-80.0); HEMATOCRIT 24.7 % (35.0-45.0); MEAN CELL VOLUME 77.9 fl (81-100); MEAN CORPUSCULAR HEMOGLOBIN 25.3 pg (27.0-31.0); MEAN CORPUSCULAR HGB CONC 32.5 pg (28.0-36.0); MEAN PLATELET VOLUME 8.2 fl; NEUTROPHILE ABSOLUTE 6.6 Th/cmm (1.8-8.0); PLATELET COUNT 217 Th/cmm (150-400); RED BLOOD COUNT 3.16 Mil/cmm (3.80-5.20); RED CELL DISTRIBUTION WIDTH 19.6 % (11.5-20.0); WHITE BLOOD COUNT 8.5 Th/cmm (4.8-10.8)
[2016-10-07] MEDS: Pantoprazole 40 mg EC Tab PO SCH ×2 (09:01→09:02)
[2016-10-07] MEDS: Multivitamin Tab PO SCH (09:01)
[2016-10-07] MEDS: Ferrous Sulfate 300 MG/5 ML UDC PO SCH ×2 (09:01→17:06)
[2016-10-07 09:21] LABS: ANION GAP 7.4 (7.0-16.0); BUN - UREA NITROGEN 37 mg/dL (7-25); BUN/CREATININE RATIO 20.6; CARBON DIOXIDE 25.4 mEq/L (21.0-31.0); CHLORIDE 108 mEq/L (98-107); CREATININE - SERUM 1.8 mg/dL (0.6-1.2); GLUCOSE 86 mg/dL (70-105); POTASSIUM SERUM 4.8 mEq/L (3.5-5.1); SODIUM SERUM 136 mEq/L (136-145)
[2016-10-07] MEDS ORDERED: D5-0.45NS w/10 mEq KCL 1,000 ML IV SCH (18:03)
--- NOTE | 2016-10-07 18:31 | General Progress Note ---
Subjective - Review of Systems Service Date: 10/07/16 Subjective: Patient was seen and examined awake but confused renal function improving tolerating feeding Objective - Results Result Diagrams: 10/07/16 06:06 10/07/16 06:06 Recent Labs: Laboratory Last Values WBC 8.5 Th/cmm (4.8-10.8) 10/07/16 06:06 RBC 3.16 Mil/cmm (3.80-5.20) L 10/07/16 06:06 Hgb 8.0 gm/dL (11.7-16.1) L 10/07/16 06:06 Hct 24.7 % (35.0-45.0) L 10/07/16 06:06 MCV 77.9 fl (81-100) L 10/07/16 06:06 MCH 25.3 pg (27.0-31.0) L 10/07/16 06:06 MCHC Differential 32.5 pg (28.0-36.0) 10/07/16 06:06 RDW 19.6 % (11.5-20.0) 10/07/16 06:06 Plt Count 217 Th/cmm (150-400) 10/07/16 06:06 MPV 8.2 fl 10/07/16 06:06 Neutrophils % 77.2 % (40.0-80.0) 10/07/16 06:06 Lymphocytes % 11.5 % (20.0-50.0) L 10/07/16 06:06 Monocytes % 7.2 % (2.0-10.0) 10/07/16 06:06 Eosinophils % 3.8 % (0.0-5.0) 10/07/16 06:06 Basophils % 0.3 % (0.0-2.0) 10/07/16 06:06 PT 12.2 SECONDS (9.5-11.5) H 10/03/16 20:08 INR 1.21 (0.5-1.4) 10/03/16 20:08 Specimen Source Arterial 10/04/16 10:49 Sample Site RB 10/04/16 10:49 pH 7.38 (7.35-7.45) 10/04/16 10:49 pCO2 45.0 mmHg (35.0-45.0) 10/04/16 10:49 pO2 69.0 mmHg (80.0-100.0) L 10/04/16 10:49 HCO3 26.6 mmol/L (20.0-26.0) H 10/04/16 10:49 Base Excess 1.1 mmol/L (-3.0-3.0) 10/04/16 10:49 O2 Saturation 93.0 % (92.0-100.0) 10/04/16 10:49 Will Test NA 10/04/16 10:49 Vent Rate NA 10/04/16 10:49 Inspired O2 28 10/04/16 10:49 Tidal Volume NA 10/04/16 10:49 PEEP NA 10/04/16 10:49 Pressure (ins/psv/peep) NA 10/04/16 10:49 Critical Value LZHANG 10/04/16 10:49 Sodium 136 mEq/L (136-145) 10/07/16 06:06 Potassium 4.8 mEq/L (3.5-5.1) 10/07/16 06:06 Chloride 108 mEq/L (98-107) H 10/07/16 06:06 Carbon Dioxide 25.4 mEq/L (21.0-31.0) 10/07/16 06:06 Anion Gap 7.4 (7.0-16.0) 10/07/16 06:06 BUN 37 mg/dL (7-25) H 10/07/16 06:06 Creatinine 1.8 mg/dL (0.6-1.2) H 10/07/16 06:06 Est GFR ( Amer) TNP 10/07/16 06:06 Est GFR (Non-Af Amer) TNP 10/07/16 06:06 BUN/Creatinine Ratio 20.6 10/07/16 06:06 Glucose 86 mg/dL (70-105) 10/07/16 06:06 POC Glucose 130 MG/DL (70 - 105) H 10/07/16 16:43 Hemoglobin A1c % 5.7 % (4.0-6.0) 10/03/16 20:08 Calcium 8.0 mg/dL (8.6-10.3) L 10/07/16 06:06 Phosphorus 4.4 mg/dL (2.5-5.0) 10/05/16 06:29 Magnesium 2.5 mg/dL (1.9-2.7) 10/05/16 06:29 Iron 20 ug/dL (27-139) L 10/05/16 06:29 TIBC 237 ug/dL (250-450) L 10/05/16 06:29 Iron Saturation 8 % (15-55) L 10/05/16 06:29 Unsaturated IBC 217 ug/dL (118-369) 10/05/16 06:29 Total Bilirubin 0.4 mg/dL (0.3-1.0) 10/05/16 06:29 AST 14 U/L (13-39) 10/05/16 06:29 ALT 14 U/L (7-52) 10/05/16 06:29 Alkaline Phosphatase 83 U/L (34-104) 10/05/16 06:29 Troponin I 0.01 ng/mL (0.01-0.05) 10/03/16 20:08 B-Natriuretic Peptide 2850.0 pg/mL (5.0-100.0) H 10/05/16 06:29 Total Protein 6.5 gm/dL (6.0-8.3) 10/05/16 06:29 Albumin 3.0 gm/dL (3.7-5.3) L 10/05/16 06:29 Globulin 3.5 gm/dL 10/05/16 06:29 Albumin/Globulin Ratio 0.9 (1.0-1.8) L 10/05/16 06:29 Triglycerides 106 mg/dL (<150) 10/03/16 20:08 Cholesterol 97 mg/dL (<200) 10/03/16 20:08 LDL Cholesterol Direct 42 mg/dL (75-193) L 10/03/16 20:08 HDL Cholesterol 38 mg/dL (23-92) 10/03/16 20:08 TSH 14.69 uIU/ml (0.34-5.60) H 10/03/16 20:08 PTH Intact 147 pg/mL (15-65) H 10/06/16 07:20 Urine Source CLEAN C 10/05/16 10:45 Urine Color YELLOW 10/05/16 10:45 Urine Clarity SL. CLOUDY (CLEAR) 10/05/16 10:45 Urine pH 7.5 10/05/16 10:45 Ur Specific Freeman 1.020 (1.005-1.030) 10/05/16 10:45 Urine Protein TRACE mg/dL (NEGATIVE) 10/05/16 10:45 Urine Glucose (UA) NEGATIVE mg/dL (NEGATIVE) 10/05/16 10:45 Urine Ketones NEGATIVE mg/dL (NEGATIVE) 10/05/16 10:45 Urine Blood TRACE (NEGATIVE) 10/05/16 10:45 Urine Nitrate NEGATIVE (NEGATIVE) 10/05/16 10:45 Urine Bilirubin NEGATIVE (NEGATIVE) 10/05/16 10:45 Urine Urobilinogen 0.2 E.U./dL (0.2 - 1.0) 10/05/16 10:45 Ur Leukocyte Esterase NEGATIVE (NEGATIVE) 10/05/16 10:45 Urine RBC 0-2 /hpf (0-5) 10/05/16 10:45 Urine WBC 0-2 /hpf (0-5) 10/05/16 10:45 Ur Epithelial Cells RARE /lpf (FEW) 10/05/16 10:45 Urine Bacteria NONE SEEN /hpf (NONE SEEN) 10/05/16 10:45 U Random Total Protein 34.0 mg/dL 10/06/16 06:00 Urine Collection Time 24 hours 10/06/16 06:00 Urine Total Volume 1850 ml 10/06/16 06:00 Urine Creatinine 23.0 mg/dl (28.0-217.0) L 10/06/16 06:00 Creat Clearance 24 Hr 18 ml/min (88.00-128.00) L 10/06/16 06:00 U Tot Protein 24h, Calc 629.0 mg/24 hr (0-165) H 10/06/16 06:00 Body Surface Area 1.47 10/06/16 06:00 Stool Occult Blood POSITIVE (NEGATIVE) 10/07/16 02:00 RPR NONREACTIVE (NONREACTIVE) 10/03/16 20:08 - Physical Exam Vitals and I&O: Vital Signs Temp 98.6 F 10/07/16 15:00 Pulse 57 10/07/16 15:00 Resp 17 10/07/16 16:00 BP 117/48 10/07/16 15:00 Pulse Ox 100 10/07/16 15:00 Intake & Output 10/06/16 10/07/16 10/07/16 18:59 06:59 18:59 Intake Total 980 1280 730 Output Total 700 800 500 Balance 280 480 230 Intake: Intake, IV Amount 300 Azithromycin 250 mg In 250 Sodium Chloride 0.9% 250 ml @ 250 mls/hr IV Q24HR [facility] Rx#:[id number] cefTRIAXone 1 gm In 50 Dextrose 5% 50 ml @ 100 mls/hr IV Q24H [facility] Rx#: [id number] Oral 0 Tube Feeding 980 480 480 Other 500 250 Output: Urine 700 800 500 Other: # Bowel Movements 3 3 2 Stool Characteristics Liquid Brown Active Medications: Current Medications Acetaminophen (Tylenol) 650 mg PO Q6HR PRN PRN Reason: Pain (Mild) Stop: 12/03/16 08:08 Last Admin: 10/06/16 18:38 Dose: 650 mg Albuterol/Ipratropium (Duoneb Neb) 3 ml HHN Q2HR PRN PRN Reason: Shortness of Breath Stop: 12/03/16 08:08 Amlodipine Besylate (Norvasc) 5 mg PO DAILY [facility] Stop: 12/03/16 08:59 Last Admin: 10/07/16 09:01 Dose: 5 mg Atorvastatin Calcium (Lipitor) 10 mg PO HS [facility] PRN Reason: Protocol Stop: 12/03/16 20:59 Last Admin: 10/06/16 20:09 Dose: 10 mg Calcitriol (Rocaltrol) 0.25 mcg PO DAILY [facility] Stop: 12/05/16 08:59 Last Admin: 10/07/16 09:02 Dose: 0.25 mcg Carvedilol (Coreg) 25 mg PO BID [facility] Stop: 12/03/16 08:59 Last Admin: 10/07/16 17:07 Dose: Not Given Docusate Sodium (Colace) 100 mg PO BID [facility] Stop: 12/03/16 08:59 Last Admin: 10/07/16 17:07 Dose: 100 mg Donepezil HCl (Aricept) 5 mg PO HS [facility] Stop: 12/03/16 20:59 Last Admin: 10/06/16 20:09 Dose: 5 mg Epoetin Suraj (Epogen) 10,000 units SUBQ MoWeFr [facility] Stop: 12/05/16 13:43 Last Admin: 10/06/16 14:41 Dose: 10,000 units Ferrous Sulfate (Iron) 300 mg PO BID [facility] Stop: 12/04/16 16:59 Last Admin: 10/07/16 17:06 Dose: 300 mg Folic Acid (Folate) 1 mg PO DAILY [facility] Stop: 12/05/16 08:59 Last Admin: 10/07/16 09:01 Dose: 1 mg Azithromycin 250 mg/ Sodium (Chloride) 250 mls @ 250 mls/hr IV Q24HR [facility] Stop: 12/04/16 00:00 Last Infusion: 10/07/16 01:10 Dose: Infused Ceftriaxone Sodium 1 gm/ (Dextrose) 50 mls @ 100 mls/hr IV Q24H [facility] Stop: 12/03/16 21:59 Last Infusion: 10/06/16 21:58 Dose: Infused Potassium Chloride/Dextrose/Sod Cl (D5-0.45ns W/10 Meq Kcl) 1,000 mls @ 75 mls/ hr IV .[id number] [facility] Stop: 12/06/16 18:02 Insulin Aspart (Novolog) 0 units SUBQ ACHS [facility] PRN Reason: Protocol Stop: 12/03/16 07:29 Last Admin: 10/07/16 17:06 Dose: Not Given Levothyroxine Sodium (Synthroid) 0.05 mg PO QDAC [facility] Stop: 12/04/16 07:29 Last Admin: 10/07/16 06:32 Dose: 0.05 mg Lorazepam (Ativan) 0.5 mg PO Q6HR PRN; Protocol PRN Reason: Anxiety Stop: 12/03/16 08:08 Last Admin: 10/07/16 03:36 Dose: 0.5 mg Lorazepam (Ativan) 1 mg IVP Q4HR PRN; Protocol PRN Reason: Agitation Stop: 12/03/16 08:21 Last Admin: 10/06/16 22:30 Dose: 1 mg Multivitamins/Vitamin C (Theragran) 1 tab PO DAILY [facility] Stop: 12/03/16 08:59 Last Admin: 10/07/16 09:01 Dose: 1 tab Pantoprazole Sodium (Protonix) 40 mg PO DAILY [facility] Stop: 12/03/16 08:59 Last Admin: 10/07/16 09:01 Dose: 40 mg Quetiapine Fumarate (Seroquel) 25 mg PO BID [facility] PRN Reason: Protocol Stop: 12/03/16 08:59 Last Admin: 10/07/16 17:23 Dose: Not Given Quetiapine Fumarate (Seroquel) 37.5 mg PO HS [facility] PRN Reason: Protocol Stop: 12/03/16 20:59 Last Admin: 10/06/16 20:10 Dose: 37.5 mg Senna (Senna) 8.6 mg PO HS [facility] Stop: 12/03/16 20:59 Last Admin: 10/06/16 20:09 Dose: 8.6 mg Tramadol HCl (Ultram) 50 mg PO Q8HR PRN PRN Reason: Pain (Moderate) Stop: 12/03/16 08:08 Last Admin: 10/07/16 03:36 Dose: 50 mg Cardiovascular: Normal S1, Normal S2 Lungs: Clear to auscultation Abdomen: Soft, no Tender Assessment/Plan - Assessment Assessment: Altered mental state ? etiology ? worsening dementia Hypoxemia Pnemonia CHF HTN Hypothyroidism Hyperlipidemia Diabetes Old CVA Psych disorder Debitly Positive stool OB - Plan Plan: Continue antibiotics HHN/ oxygen support DC IV Fluids ( elevated BNP) ECHO EF 40% CT head and C spine reviewed no acute finding reported Monitor renal function Pulmonary and Neprhology on board 24 hr urine collection for protein and creatinine Tube feeding Positive stool OB . GI consulted Plan of care discussed with nursing staff
[2016-10-07] MEDS ORDERED: D5-0.45NS 1,000 ML IV SCH (19:30)
[2016-10-07] MEDS: Atorvastatin Calcium 10 MG TAB PO SCH (20:01)
[2016-10-08] MEDS: Azithromycin 250 MG in Sodium Chloride 0.9% 250 ML IV SCH (00:14)
--- NOTE | 2016-10-08 00:37 | Progress Notes ---
Covering for Dr. Payne. Case was discussed with staff of the patient, reviewed records. The patient is still confused. She has ____ her hands. She was somewhat sedated when I talked to her. She continues to be unable to make safe plan for self-care. She is unable to participate in a meaningful conversation. Dr. Payne will follow up with her. The patient needs to follow up with the psychiatrist upon discharge. Thank you very much for allowing me to participate in the care of this most interesting lady. JOB# [id number]
--- NOTE | 2016-10-08 03:11 | Consultation ---
Inpatient GI consult REFERRING PHYSICIAN: Dr. Austin Barragan. REASON FOR CONSULTATION: Anemia. HISTORY OF PRESENT ILLNESS: A 76-year-old female who was admitted for altered level of consciousness, Alzheimer's dementia, was found to be anemic and therefore we are asked to see the patient. The patient has no overt signs of GI bleeding currently has an NG tube and is tolerating feeds. No reports of any abdominal pain, nausea, vomiting or GI bleeding. Again, the patient is a poor historian. PAST MEDICAL HISTORY: Stroke, dementia, diabetes, chronic kidney disease. PAST SURGICAL HISTORY: None to abdomen. FAMILY HISTORY: Noncontributory. SOCIAL HISTORY: Resident of [facility]. ALLERGIES: DIPHENHYDRAMINE, HALOPERIDOL, ISOSORBIDE, LISINOPRIL. CURRENT MEDICATIONS: Tylenol, albuterol, Norvasc, Lipitor, azithromycin, calcitriol, Coreg, ceftriaxone, Colace, Aricept, Epogen, insulin, Synthroid, Ativan, Protonix, Seroquel, senna, Ultram. REVIEW OF SYSTEMS: Unobtainable. PHYSICAL EXAMINATION: VITAL SIGNS: Temperature is 97.3, pulse of 60, blood pressure is 132/77. Breathing 17, pulse was 60, satting 99%. GENERAL: In no apparent distress. EYES: Anicteric, normal conjunctivae. HEENT: Normocephalic, atraumatic. Moist mucous membranes. NECK: Soft, supple. CHEST: Some coarse breath sounds. CARDIOVASCULAR: Regular rate and rhythm. ABDOMEN: Soft, nontender, nondistended. SKIN: Warm, dry. EXTREMITIES: Reveal no cyanosis. LABORATORY DATA: Show white count 8.5, hemoglobin 8, MCV of 77, platelets of 217. Stool OB is positive. Chest x-ray showed some cardiomegaly and left pleural effusion. IMPRESSION: This is a 76-year-old female with microcytic anemia, cause could be from iron deficiency versus chronic disease versus blood loss. Stool OB is positive. PLAN: 1.Esophagogastroduodenoscopy colonoscopy. 2.Follow hemoglobin and hematocrit, transfuse as needed. 3.Continue supportive care and defer other management to primary team. Thank you for allowing me to participate. Please call me if any questions. JOB# [id number]
[2016-10-08 06:37] LABS: % BASOPHILS 0.2 % (0.0-2.0); % EOSINOPHILS 2.2 % (0.0-5.0); % LYMPHOCYTES 14.7 % (20.0-50.0); % MONOCYTES 7.6 % (2.0-10.0); % NEUTROPHILS 75.3 % (40.0-80.0); HEMATOCRIT 25.9 % (35.0-45.0); HEMOGLOBIN 8.4 gm/dL (11.7-16.1); MEAN CELL VOLUME 78.4 fl (81-100); MEAN CORPUSCULAR HEMOGLOBIN 25.4 pg (27.0-31.0); MEAN CORPUSCULAR HGB CONC 32.3 pg (28.0-36.0); MEAN PLATELET VOLUME 7.8 fl; NEUTROPHILE ABSOLUTE 5.7 Th/cmm (1.8-8.0); PLATELET COUNT 203 Th/cmm (150-400); RED BLOOD COUNT 3.31 Mil/cmm (3.80-5.20); RED CELL DISTRIBUTION WIDTH 19.6 % (11.5-20.0); WHITE BLOOD COUNT 7.6 Th/cmm (4.8-10.8)
[2016-10-08] MEDS: Levothyroxine 0.05 Mg Tab PO SCH (06:43)
[2016-10-08] MEDS: INSULIN ASPART, RECOMBINANT 100 UNITS/ML SUBQ SCH ×4 (06:44→21:03)
[2016-10-08 06:46] LABS: INR 1.25 (0.5-1.4); PROTHROMBIN TIME (TEST) 12.6 SECONDS (9.5-11.5)
[2016-10-08 06:51] LABS: ANION GAP 7.2 (7.0-16.0); BUN - UREA NITROGEN 33 mg/dL (7-25); BUN/CREATININE RATIO 20.6; CARBON DIOXIDE 27.4 mEq/L (21.0-31.0); CHLORIDE 107 mEq/L (98-107); CREATININE - SERUM 1.6 mg/dL (0.6-1.2); GLUCOSE 124 mg/dL (70-105); POTASSIUM SERUM 4.6 mEq/L (3.5-5.1); SODIUM SERUM 137 mEq/L (136-145)
[2016-10-08] MEDS ORDERED: Lactated Ringer 1,000 ML IV SCH (08:30)
[2016-10-08] MEDS: Ferrous Sulfate 300 MG/5 ML UDC PO SCH ×2 (08:56→16:52)
[2016-10-08] MEDS: Multivitamin Tab PO SCH (08:56)
[2016-10-08] MEDS: Pantoprazole 40 mg EC Tab PO SCH (08:56)
--- NOTE | 2016-10-08 10:00 | Diagnostic Imaging Report ---
CHEST X-RAY: AP view INDICATION: NG tube placement COMPARISON: Chest x-ray 10/06/2016 FINDINGS: NG tube is seen with tip in the stomach. Left chest wall pacemaker is stable. Findings of CHF are seen with left effusion and bilateral infiltrates. There is mild volume loss of the left lung. IMPRESSION: NG tube within the stomach CHF with left effusion and mild volume loss of the left lung Bilateral hazy infiltrates.
--- NOTE | 2016-10-08 12:58 | Diagnostic Imaging Report ---
CT abdomen and pelvis without intravenous contrast Indication: Mass, confirm NG tube placement Comparison: Chest x-ray on 10/08/2016, Technique: Axial images were obtained from the lung bases to the bilateral proximal femurs without IV contrast. Coronal reconstructions were made. total DLP: 540, CTDI11.3 FINDINGS: Partially visualized pacemaker wires are noted. Bilateral pleural effusions are seen with bibasal consolidation or infiltrates. Bibasal calcifications are noted likely due to old inflammatory process. Assessment of the solid organs is limited due to lack of IV contrast. No evidence of focal hepatic lesions. The patient is status post cholecystectomy. No focal splenic lesions. Pancreatic gland atrophy is noted. Assessment of the pancreas is limited due to body habitus and lack of IV and oral contrast. No focal adrenal lesions. There is heavy atherosclerotic vascular disease of the aorta and branches. Renal artery calcifications are noted. No hydronephrosis. Nicholson catheter is seen within the urinary bladder. Mild ascites is noted. Generalized gaseous distended loops of bowel are noted. There area of bowel wall prominence along the hepatic flexure. Appendix is not visualized. Extensive anasarca is noted. No evidence of free abdominal air. Diffuse degenerative changes of the spine are noted with scoliosis. IMPRESSION: NG tube within the stomach. Generalized gas-filled loops of bowel probably representing and ileus. There is areas of large bowel wall thickening and prominence along the hepatic flexure, however, correlation should be made with colonoscopy results if there is concern for intraluminal colonic mass in this region. Mild ascites Evidence of prior cholecystectomy Extensive anasarca Heavy atherosclerotic vascular disease Bilateral pleural effusions and bibasal consolidative changes infiltrates.
--- NOTE | 2016-10-08 14:46 | Operative Report ---
INPATIENT GASTROINTESTINAL PROCEDURE PROCEDURE: EGD with biopsy, colonoscopy with biopsy, snare polypectomy and submucosal injection. REFERRING PHYSICIAN: Dr. Austin Barragan. CONSENT: Risks, benefits, alternatives, nature, indication, possible outcomes were discussed. Mentioned bleeding, infection, perforation, , disability, cardiopulmonary distress and arrest, missed lesion and cancers, need for surgery. The patient's family expressed understanding and provided informed consent. PREOPERATIVE DIAGNOSIS: Anemia, occult blood positive. POSTOPERATIVE DIAGNOSES: Small hiatal hernia, gastritis, hepatic flexure partial obstruction, and transverse colonic polyp. MEDICATIONS: Provided by anesthesiologist. DESCRIPTION OF PROCEDURE: The patient was placed on left side. Upper gastroscope advanced from the mouth and second portion of duodenum. Scope pulled back in the stomach. Retroflexion view of fundus, cardia, lesser curvature, small hiatal hernia. Scope was straightened and slowly withdrawn through the esophagus and removed. COMPLICATIONS: None. FINDINGS: 1. GE junction at 35 cm with very small hiatal hernia. 2. Very mild gastritis. 3. Normal duodenum. PROCEDURE: Colonoscopy. The patient placed on left side. Rectal exam was performed and was normal. Pediatric colonoscope was advanced from the anus to the hepatic flexure, but could not get ____. There seems to be a very tight twist in this area that the scope could not be traversed, however, it seems to be partial obstruction because I could see air and fluid traveling through this area. Biopsies were taken and submucosal injection of tattoo was placed in this area. Scope was slowly withdrawn in the transverse and a polyp removed by snare polypectomy. Once in the rectum, retroflexion was attempted, but could not be performed because the patient has a small rectal vault and cannot maintain her ____. Scope was then slowly withdrawn through the rectum and taken care to look at the area as best we can. Scope was then removed along with air. COMPLICATIONS: None. FINDINGS: 1. Hepatic flexure partial obstruction, status post biopsy and tattoo. 2. Transverse colonic polyp measuring 6 mm, removed by snare polypectomy. 3. Unable to retroflex. RECOMMENDATIONS: 1. CT abdomen and pelvis. 2. Surgery evaluation per PCP. 3. Follow up on biopsy. 4. Provide the patient with Protonix. Thank you for allowing me to participate. Please call me if you have any questions. [facility]# [id number]
--- NOTE | 2016-10-08 17:02 | General Progress Note ---
Subjective - Review of Systems Service Date: 10/08/16 Subjective: Patient was seen and examined s/p EGD and colonoscopy finding discussed with GI Objective - Results Result Diagrams: 10/08/16 05:20 10/08/16 05:20 Recent Labs: Laboratory Last Values WBC 7.6 Th/cmm (4.8-10.8) 10/08/16 05:20 RBC 3.31 Mil/cmm (3.80-5.20) L 10/08/16 05:20 Hgb 8.4 gm/dL (11.7-16.1) L 10/08/16 05:20 Hct 25.9 % (35.0-45.0) L 10/08/16 05:20 MCV 78.4 fl (81-100) L 10/08/16 05:20 MCH 25.4 pg (27.0-31.0) L 10/08/16 05:20 MCHC Differential 32.3 pg (28.0-36.0) 10/08/16 05:20 RDW 19.6 % (11.5-20.0) 10/08/16 05:20 Plt Count 203 Th/cmm (150-400) 10/08/16 05:20 MPV 7.8 fl 10/08/16 05:20 Neutrophils % 75.3 % (40.0-80.0) 10/08/16 05:20 Lymphocytes % 14.7 % (20.0-50.0) L 10/08/16 05:20 Monocytes % 7.6 % (2.0-10.0) 10/08/16 05:20 Eosinophils % 2.2 % (0.0-5.0) 10/08/16 05:20 Basophils % 0.2 % (0.0-2.0) 10/08/16 05:20 PT 12.6 SECONDS (9.5-11.5) H 10/08/16 05:20 INR 1.25 (0.5-1.4) 10/08/16 05:20 Specimen Source Arterial 10/04/16 10:49 Sample Site RB 10/04/16 10:49 pH 7.38 (7.35-7.45) 10/04/16 10:49 pCO2 45.0 mmHg (35.0-45.0) 10/04/16 10:49 pO2 69.0 mmHg (80.0-100.0) L 10/04/16 10:49 HCO3 26.6 mmol/L (20.0-26.0) H 10/04/16 10:49 Base Excess 1.1 mmol/L (-3.0-3.0) 10/04/16 10:49 O2 Saturation 93.0 % (92.0-100.0) 10/04/16 10:49 Will Test NA 10/04/16 10:49 Vent Rate NA 10/04/16 10:49 Inspired O2 28 10/04/16 10:49 Tidal Volume NA 10/04/16 10:49 PEEP NA 10/04/16 10:49 Pressure (ins/psv/peep) NA 10/04/16 10:49 Critical Value LZHANG 10/04/16 10:49 Sodium 137 mEq/L (136-145) 10/08/16 05:20 Potassium 4.6 mEq/L (3.5-5.1) 10/08/16 05:20 Chloride 107 mEq/L (98-107) 10/08/16 05:20 Carbon Dioxide 27.4 mEq/L (21.0-31.0) 10/08/16 05:20 Anion Gap 7.2 (7.0-16.0) 10/08/16 05:20 BUN 33 mg/dL (7-25) H 10/08/16 05:20 Creatinine 1.6 mg/dL (0.6-1.2) H 10/08/16 05:20 Est GFR ( Amer) TNP 10/08/16 05:20 Est GFR (Non-Af Amer) TNP 10/08/16 05:20 BUN/Creatinine Ratio 20.6 10/08/16 05:20 Glucose 124 mg/dL (70-105) H 10/08/16 05:20 POC Glucose 89 MG/DL (70 - 105) 10/08/16 12:05 Hemoglobin A1c % 5.7 % (4.0-6.0) 10/03/16 20:08 Calcium 8.0 mg/dL (8.6-10.3) L 10/08/16 05:20 Phosphorus 4.4 mg/dL (2.5-5.0) 10/05/16 06:29 Magnesium 2.5 mg/dL (1.9-2.7) 10/05/16 06:29 Iron 20 ug/dL (27-139) L 10/05/16 06:29 TIBC 237 ug/dL (250-450) L 10/05/16 06:29 Iron Saturation 8 % (15-55) L 10/05/16 06:29 Unsaturated IBC 217 ug/dL (118-369) 10/05/16 06:29 Total Bilirubin 0.4 mg/dL (0.3-1.0) 10/05/16 06:29 AST 14 U/L (13-39) 10/05/16 06:29 ALT 14 U/L (7-52) 10/05/16 06:29 Alkaline Phosphatase 83 U/L (34-104) 10/05/16 06:29 Troponin I 0.01 ng/mL (0.01-0.05) 10/03/16 20:08 B-Natriuretic Peptide 2850.0 pg/mL (5.0-100.0) H 10/05/16 06:29 Total Protein 6.5 gm/dL (6.0-8.3) 10/05/16 06:29 Albumin 3.0 gm/dL (3.7-5.3) L 10/05/16 06:29 Globulin 3.5 gm/dL 10/05/16 06:29 Albumin/Globulin Ratio 0.9 (1.0-1.8) L 10/05/16 06:29 Triglycerides 106 mg/dL (<150) 10/03/16 20:08 Cholesterol 97 mg/dL (<200) 10/03/16 20:08 LDL Cholesterol Direct 42 mg/dL (75-193) L 10/03/16 20:08 HDL Cholesterol 38 mg/dL (23-92) 10/03/16 20:08 TSH 14.69 uIU/ml (0.34-5.60) H 10/03/16 20:08 PTH Intact 147 pg/mL (15-65) H 10/06/16 07:20 Urine Source CLEAN C 10/05/16 10:45 Urine Color YELLOW 10/05/16 10:45 Urine Clarity SL. CLOUDY (CLEAR) 10/05/16 10:45 Urine pH 7.5 10/05/16 10:45 Ur Specific [place] 1.020 (1.005-1.030) 10/05/16 10:45 Urine Protein TRACE mg/dL (NEGATIVE) 10/05/16 10:45 Urine Glucose (UA) NEGATIVE mg/dL (NEGATIVE) 10/05/16 10:45 Urine Ketones NEGATIVE mg/dL (NEGATIVE) 10/05/16 10:45 Urine Blood TRACE (NEGATIVE) 10/05/16 10:45 Urine Nitrate NEGATIVE (NEGATIVE) 10/05/16 10:45 Urine Bilirubin NEGATIVE (NEGATIVE) 10/05/16 10:45 Urine Urobilinogen 0.2 E.U./dL (0.2 - 1.0) 10/05/16 10:45 Ur Leukocyte Esterase NEGATIVE (NEGATIVE) 10/05/16 10:45 Urine RBC 0-2 /hpf (0-5) 10/05/16 10:45 Urine WBC 0-2 /hpf (0-5) 10/05/16 10:45 Ur Epithelial Cells RARE /lpf (FEW) 10/05/16 10:45 Urine Bacteria NONE SEEN /hpf (NONE SEEN) 10/05/16 10:45 U Random Total Protein 34.0 mg/dL 10/06/16 06:00 Urine Collection Time 24 hours 10/06/16 06:00 Urine Total Volume 1850 ml 10/06/16 06:00 Urine Creatinine 23.0 mg/dl (28.0-217.0) L 10/06/16 06:00 Creat Clearance 24 Hr 18 ml/min (88.00-128.00) L 10/06/16 06:00 U Tot Protein 24h, Calc 629.0 mg/24 hr (0-165) H 10/06/16 06:00 Body Surface Area 1.47 10/06/16 06:00 Stool Occult Blood POSITIVE (NEGATIVE) 10/07/16 02:00 RPR NONREACTIVE (NONREACTIVE) 10/03/16 20:08 - Physical Exam Vitals and I&O: Vital Signs Temp 98.2 F 10/08/16 12:00 Pulse 55 10/08/16 16:55 Resp 16 10/08/16 12:00 BP 155/57 10/08/16 12:00 Pulse Ox 98 10/08/16 12:00 Intake & Output 10/07/16 10/08/16 10/08/16 18:59 06:59 18:59 Intake Total 730 4080 Output Total 500 Balance 230 4080 Intake: Intake, IV Amount 300 Azithromycin 250 mg In 250 Sodium Chloride 0.9% 250 ml @ 250 mls/hr IV Q24HR [facility] Rx#:[id number] cefTRIAXone 1 gm In 50 Dextrose 5% 50 ml @ 100 mls/hr IV Q24H [facility] Rx#: [id number] Oral 0 Tube Feeding 480 80 Other 250 3700 Output: Urine 500 Other: # Voids 650 # Bowel Movements 2 3 Stool Characteristics Liquid Liquid Brown Active Medications: Current Medications Acetaminophen (Tylenol) 650 mg PO Q6HR PRN PRN Reason: Pain (Mild) Stop: 12/03/16 08:08 Last Admin: 10/08/16 02:40 Dose: 650 mg Albuterol/Ipratropium (Duoneb Neb) 3 ml HHN Q2HR PRN PRN Reason: Shortness of Breath Stop: 12/03/16 08:08 Amlodipine Besylate (Norvasc) 5 mg PO DAILY [facility] Stop: 12/03/16 08:59 Last Admin: 10/08/16 08:56 Dose: Not Given Atorvastatin Calcium (Lipitor) 10 mg PO HS [facility] PRN Reason: Protocol Stop: 12/03/16 20:59 Last Admin: 10/07/16 20:01 Dose: 10 mg Calcitriol (Rocaltrol) 0.25 mcg PO DAILY [facility] Stop: 12/05/16 08:59 Last Admin: 10/08/16 08:56 Dose: Not Given Carvedilol (Coreg) 25 mg PO BID [facility] Stop: 12/03/16 08:59 Last Admin: 10/08/16 16:55 Dose: Not Given Docusate Sodium (Colace) 100 mg PO BID [facility] Stop: 12/03/16 08:59 Last Admin: 10/08/16 16:54 Dose: 100 mg Donepezil HCl (Aricept) 5 mg PO HS [facility] Stop: 12/03/16 20:59 Last Admin: 10/07/16 20:02 Dose: 5 mg Epoetin Suraj (Epogen) 10,000 units SUBQ MoWeFr [facility] Stop: 12/05/16 13:43 Last Admin: 10/06/16 14:41 Dose: 10,000 units Ferrous Sulfate (Iron) 300 mg PO BID [facility] Stop: 12/04/16 16:59 Last Admin: 10/08/16 16:52 Dose: 300 mg Folic Acid (Folate) 1 mg PO DAILY [facility] Stop: 12/05/16 08:59 Last Admin: 10/08/16 08:56 Dose: Not Given Azithromycin 250 mg/ Sodium (Chloride) 250 mls @ 250 mls/hr IV Q24HR [facility] Stop: 12/04/16 00:00 Last Infusion: 10/08/16 01:20 Dose: Infused Ceftriaxone Sodium 1 gm/ (Dextrose) 50 mls @ 100 mls/hr IV Q24H [facility] Stop: 12/03/16 21:59 Last Infusion: 10/07/16 22:15 Dose: Infused Insulin Aspart (Novolog) 0 units SUBQ ACHS [facility] PRN Reason: Protocol Stop: 12/03/16 07:29 Last Admin: 10/08/16 12:08 Dose: Not Given Levothyroxine Sodium (Synthroid) 0.05 mg PO QDAC [facility] Stop: 12/04/16 07:29 Last Admin: 10/08/16 06:43 Dose: Not Given Lorazepam (Ativan) 0.5 mg PO Q6HR PRN; Protocol PRN Reason: Anxiety Stop: 12/03/16 08:08 Last Admin: 10/07/16 20:02 Dose: 0.5 mg Lorazepam (Ativan) 1 mg IVP Q4HR PRN; Protocol PRN Reason: Agitation Stop: 12/03/16 08:21 Last Admin: 10/06/16 22:30 Dose: 1 mg Multivitamins/Vitamin C (Theragran) 1 tab PO DAILY [facility] Stop: 12/03/16 08:59 Last Admin: 10/08/16 08:56 Dose: Not Given Pantoprazole Sodium (Protonix) 40 mg PO DAILY [facility] Stop: 12/03/16 08:59 Last Admin: 10/08/16 08:56 Dose: Not Given Quetiapine Fumarate (Seroquel) 25 mg PO BID [facility] PRN Reason: Protocol Stop: 12/03/16 08:59 Last Admin: 10/08/16 16:55 Dose: 25 mg Quetiapine Fumarate (Seroquel) 37.5 mg PO HS [facility] PRN Reason: Protocol Stop: 12/03/16 20:59 Last Admin: 10/07/16 20:02 Dose: 37.5 mg Senna (Senna) 8.6 mg PO HS [facility] Stop: 12/03/16 20:59 Last Admin: 10/07/16 20:02 Dose: 8.6 mg Tramadol HCl (Ultram) 50 mg PO Q8HR PRN PRN Reason: Pain (Moderate) Stop: 12/03/16 08:08 Last Admin: 10/07/16 20:02 Dose: 50 mg Cardiovascular: Regular rate Lungs: Clear to auscultation Abdomen: Soft, no Tender Assessment/Plan - Assessment Assessment: Altered mental state ? etiology ? worsening dementia Hypoxemia Pnemonia CHF HTN Hypothyroidism Hyperlipidemia Diabetes Old CVA Psych disorder Debitly Positive stool OB Colon stricture - Plan Plan: Continue antibiotics HHN/ oxygen support DC IV Fluids ( elevated BNP) ECHO EF 40% CT head and C spine reviewed no acute finding reported Monitor renal function Pulmonary and Neprhology on board 24 hr urine collection for protein and creatinine Tube feeding Per GI surgical consult for colon stricture. Dr Holder was consulted Plan of care discussed with nursing staff
[2016-10-08] MEDS: Epoetin Alfa 20000 Units/mL Vial SUBQ SCH (17:16)
[2016-10-08] MEDS: Atorvastatin Calcium 10 MG TAB PO SCH (20:41)
[2016-10-09] MEDS: Azithromycin 250 MG in Sodium Chloride 0.9% 250 ML IV SCH ×2 (00:42→23:47)
[2016-10-09] MEDS: Levothyroxine 0.05 Mg Tab PO SCH (06:47)
[2016-10-09] MEDS: INSULIN ASPART, RECOMBINANT 100 UNITS/ML SUBQ SCH ×4 (06:53→21:11)
[2016-10-09] MEDS: Ferrous Sulfate 300 MG/5 ML UDC PO SCH ×2 (09:02→16:32)
[2016-10-09] MEDS: Multivitamin Tab PO SCH (09:02)
[2016-10-09] MEDS: Pantoprazole 40 mg EC Tab PO SCH (09:17)
--- NOTE | 2016-10-09 12:00 | Pathology Report ---
[id number] Collection date: 10/08/16 Surgeon: Dr. Morgan Don Specimen Description: 1: Duodenum biopsy. 2: Antrum biopsy. 3: Colon biopsy at 80 cm. 4: Transverse colon polyp. Gross Description: Part I: Received in formalin are two [place] soft tissue fragments ranging from 0.1 to 0.2 cm in greatest dimension. Totally submitted in one cassette labeled A. Gross Description: Part II: Received in formalin are two [place] soft tissue fragments ranging from 0.1 to 0.2 cm in greatest dimension. Totally submitted in one cassette labeled B. Gross Description: Part III: Received in formalin are multiple [place] soft tissue fragments ranging from 0.1 to 0.2 cm in greatest dimension. Totally submitted in one cassette labeled C. Gross Description: Part IV: Received in formalin are two [place] soft tissue fragments ranging from 0.3 to 0.4 cm in greatest dimension. Totally submitted in one cassette labeled D. Microscopic Description: Part I: The histologic sections show benign duodenal mucosa with intact intestinal villi, showing no significant abnormalities. Diagnosis: Part I: No evidence for celiac disease/Spr[place] (duodenum biopsy). Microscopic Description: Part II: The histologic sections show gastric mucosa with mild chronic inflammation present, consisting of lymphocytes and plasma cells. The Giemsa stain shows no evidence for Helicobacter pylori. Diagnosis: Part II: 1. Mild chronic gastritis, antrum biopsy. 2. The Giemsa stain is negative for Helicobacter pylori. Microscopic Description: Part III: The histologic sections show benign colon mucosa with mild chronic inflammation present, consisting of lymphocytes and plasma cells. There is no evidence for ulceration or atypia. Diagnosis: Part III: Mild nonspecific chronic inflammation, colon biopsy at 80 cm. Microscopic Description: Part IV: The histologic sections show colon mucosa with adenomatous glandular changes present consisting of nuclear enlargement and stratification, with mostly tubules formed consistent with tubular adenoma. Diagnosis: Part IV: Benign adenomatous polyp consistent with tubular adenoma (transverse colon polyp ). Comment: Clinical correlation and follow-up is recommended. These findings are discussed with Dr. Morgan Don on 10/09/16, and the report is also sent to his office. JOB# [id number] [facility]
--- NOTE | 2016-10-09 12:16 | Consultation ---
REFERRING PHYSICIAN: Dr. Barragan. REASON FOR CONSULTATION: Possible hepatic flexure stricture, rule out malignancy. Thank you for referring this patient to me. HISTORY OF PRESENT ILLNESS: This 76-year-old female admitted for altered mental status. On admission, the patient was found to have microcytic anemia. A GI evaluation was done by Dr. Don including EGD and colonoscopy. PAST MEDICAL HISTORY: Includes hypertension, CVA, hyperlipidemia, dementia, diabetes mellitus, chronic kidney disease and previous coronary bypass graft and pacemaker placement. EGD was done. This was unremarkable. Colonoscopy was done and pediatric scope could not be passed the hepatic flexure. Six polyps were biopsied and we are waiting pathology report on this. CT scan was done and this showed inflammatory reaction in the area of the hepatic flexure. The daughter was called via phone and was not aware of the episode of vomiting on this patient. PHYSICAL EXAMINATION: GENERAL: The patient is very fragile, responds very poorly. Scar in the midline chest from surgery and abdomen from gallbladder surgery. ABDOMEN: Seems to be tight and decreased bowel sounds are noted. IMPRESSION: 1. Rule out obstructing lesion of the hepatic flexure. 2. History of advanced dementia, diabetes mellitus, psych disorder, hypothyroidism, and hypertension. PLAN: We will observe reaction to clear liquid feeding if tolerated. Thank you for this consultation. We will follow with you. JOB# [id number]
[2016-10-09] MEDS: Atorvastatin Calcium 10 MG TAB PO SCH (21:11)
--- NOTE | 2016-10-09 21:39 | General Progress Note ---
Subjective - Review of Systems Service Date: 10/09/16 Subjective: Patient was seen and examined nurse was at the bedside Patient was seen by surgery for possible colon stricture Objective - Results Result Diagrams: 10/08/16 05:20 10/08/16 05:20 Recent Labs: Laboratory Last Values WBC 7.6 Th/cmm (4.8-10.8) 10/08/16 05:20 RBC 3.31 Mil/cmm (3.80-5.20) L 10/08/16 05:20 Hgb 8.4 gm/dL (11.7-16.1) L 10/08/16 05:20 Hct 25.9 % (35.0-45.0) L 10/08/16 05:20 MCV 78.4 fl (81-100) L 10/08/16 05:20 MCH 25.4 pg (27.0-31.0) L 10/08/16 05:20 MCHC Differential 32.3 pg (28.0-36.0) 10/08/16 05:20 RDW 19.6 % (11.5-20.0) 10/08/16 05:20 Plt Count 203 Th/cmm (150-400) 10/08/16 05:20 MPV 7.8 fl 10/08/16 05:20 Neutrophils % 75.3 % (40.0-80.0) 10/08/16 05:20 Lymphocytes % 14.7 % (20.0-50.0) L 10/08/16 05:20 Monocytes % 7.6 % (2.0-10.0) 10/08/16 05:20 Eosinophils % 2.2 % (0.0-5.0) 10/08/16 05:20 Basophils % 0.2 % (0.0-2.0) 10/08/16 05:20 PT 12.6 SECONDS (9.5-11.5) H 10/08/16 05:20 INR 1.25 (0.5-1.4) 10/08/16 05:20 Specimen Source Arterial 10/04/16 10:49 Sample Site RB 10/04/16 10:49 pH 7.38 (7.35-7.45) 10/04/16 10:49 pCO2 45.0 mmHg (35.0-45.0) 10/04/16 10:49 pO2 69.0 mmHg (80.0-100.0) L 10/04/16 10:49 HCO3 26.6 mmol/L (20.0-26.0) H 10/04/16 10:49 Base Excess 1.1 mmol/L (-3.0-3.0) 10/04/16 10:49 O2 Saturation 93.0 % (92.0-100.0) 10/04/16 10:49 Will Test NA 10/04/16 10:49 Vent Rate NA 10/04/16 10:49 Inspired O2 28 10/04/16 10:49 Tidal Volume NA 10/04/16 10:49 PEEP NA 10/04/16 10:49 Pressure (ins/psv/peep) NA 10/04/16 10:49 Critical Value LZHANG 10/04/16 10:49 Sodium 137 mEq/L (136-145) 10/08/16 05:20 Potassium 4.6 mEq/L (3.5-5.1) 10/08/16 05:20 Chloride 107 mEq/L (98-107) 10/08/16 05:20 Carbon Dioxide 27.4 mEq/L (21.0-31.0) 10/08/16 05:20 Anion Gap 7.2 (7.0-16.0) 10/08/16 05:20 BUN 33 mg/dL (7-25) H 10/08/16 05:20 Creatinine 1.6 mg/dL (0.6-1.2) H 10/08/16 05:20 Est GFR ( Amer) TNP 10/08/16 05:20 Est GFR (Non-Af Amer) TNP 10/08/16 05:20 BUN/Creatinine Ratio 20.6 10/08/16 05:20 Glucose 124 mg/dL (70-105) H 10/08/16 05:20 POC Glucose 81 MG/DL (70 - 105) 10/09/16 20:48 Hemoglobin A1c % 5.7 % (4.0-6.0) 10/03/16 20:08 Calcium 8.0 mg/dL (8.6-10.3) L 10/08/16 05:20 Phosphorus 4.4 mg/dL (2.5-5.0) 10/05/16 06:29 Magnesium 2.5 mg/dL (1.9-2.7) 10/05/16 06:29 Iron 20 ug/dL (27-139) L 10/05/16 06:29 TIBC 237 ug/dL (250-450) L 10/05/16 06:29 Iron Saturation 8 % (15-55) L 10/05/16 06:29 Unsaturated IBC 217 ug/dL (118-369) 10/05/16 06:29 Total Bilirubin 0.4 mg/dL (0.3-1.0) 10/05/16 06:29 AST 14 U/L (13-39) 10/05/16 06:29 ALT 14 U/L (7-52) 10/05/16 06:29 Alkaline Phosphatase 83 U/L (34-104) 10/05/16 06:29 Troponin I 0.01 ng/mL (0.01-0.05) 10/03/16 20:08 B-Natriuretic Peptide 2850.0 pg/mL (5.0-100.0) H 10/05/16 06:29 Total Protein 6.5 gm/dL (6.0-8.3) 10/05/16 06:29 Albumin 3.0 gm/dL (3.7-5.3) L 10/05/16 06:29 Globulin 3.5 gm/dL 10/05/16 06:29 Albumin/Globulin Ratio 0.9 (1.0-1.8) L 10/05/16 06:29 Triglycerides 106 mg/dL (<150) 10/03/16 20:08 Cholesterol 97 mg/dL (<200) 10/03/16 20:08 LDL Cholesterol Direct 42 mg/dL (75-193) L 10/03/16 20:08 HDL Cholesterol 38 mg/dL (23-92) 10/03/16 20:08 TSH 14.69 uIU/ml (0.34-5.60) H 10/03/16 20:08 PTH Intact 147 pg/mL (15-65) H 10/06/16 07:20 Urine Source CLEAN C 10/05/16 10:45 Urine Color YELLOW 10/05/16 10:45 Urine Clarity SL. CLOUDY (CLEAR) 10/05/16 10:45 Urine pH 7.5 10/05/16 10:45 Ur Specific [place] 1.020 (1.005-1.030) 10/05/16 10:45 Urine Protein TRACE mg/dL (NEGATIVE) 10/05/16 10:45 Urine Glucose (UA) NEGATIVE mg/dL (NEGATIVE) 10/05/16 10:45 Urine Ketones NEGATIVE mg/dL (NEGATIVE) 10/05/16 10:45 Urine Blood TRACE (NEGATIVE) 10/05/16 10:45 Urine Nitrate NEGATIVE (NEGATIVE) 10/05/16 10:45 Urine Bilirubin NEGATIVE (NEGATIVE) 10/05/16 10:45 Urine Urobilinogen 0.2 E.U./dL (0.2 - 1.0) 10/05/16 10:45 Ur Leukocyte Esterase NEGATIVE (NEGATIVE) 10/05/16 10:45 Urine RBC 0-2 /hpf (0-5) 10/05/16 10:45 Urine WBC 0-2 /hpf (0-5) 10/05/16 10:45 Ur Epithelial Cells RARE /lpf (FEW) 10/05/16 10:45 Urine Bacteria NONE SEEN /hpf (NONE SEEN) 10/05/16 10:45 U Random Total Protein 34.0 mg/dL 10/06/16 06:00 Urine Collection Time 24 hours 10/06/16 06:00 Urine Total Volume 1850 ml 10/06/16 06:00 Urine Creatinine 23.0 mg/dl (28.0-217.0) L 10/06/16 06:00 Creat Clearance 24 Hr 18 ml/min (88.00-128.00) L 10/06/16 06:00 U Tot Protein 24h, Calc 629.0 mg/24 hr (0-165) H 10/06/16 06:00 Body Surface Area 1.47 10/06/16 06:00 Stool Occult Blood POSITIVE (NEGATIVE) 10/07/16 02:00 RPR NONREACTIVE (NONREACTIVE) 10/03/16 20:08 - Physical Exam Vitals and I&O: Vital Signs Temp 97.5 F 10/09/16 16:00 Pulse 59 10/09/16 16:50 Resp 18 10/09/16 20:00 BP 130/63 10/09/16 16:50 Pulse Ox 99 10/09/16 16:00 Intake & Output 10/09/16 10/09/16 10/10/16 06:59 18:59 06:59 Intake Total 415 600 Output Total 300 500 Balance 115 100 Weight (lbs) 52.163 kg Intake: Intake, IV Amount 50 cefTRIAXone 1 gm In 50 Dextrose 5% 50 ml @ 100 mls/hr IV Q24H [facility] Rx#: [id number] Tube Feeding 365 480 Other 120 Output: Urine 300 500 Other: # Bowel Movements 1 Stool Characteristics Soft Brown Active Medications: Current Medications Acetaminophen (Tylenol) 650 mg PO Q6HR PRN PRN Reason: Pain (Mild) Stop: 12/03/16 08:08 Last Admin: 10/08/16 02:40 Dose: 650 mg Albuterol/Ipratropium (Duoneb Neb) 3 ml HHN Q2HR PRN PRN Reason: Shortness of Breath Stop: 12/03/16 08:08 Amlodipine Besylate (Norvasc) 5 mg PO DAILY [facility] Stop: 12/03/16 08:59 Last Admin: 10/09/16 09:03 Dose: 5 mg Atorvastatin Calcium (Lipitor) 10 mg PO HS [facility] PRN Reason: Protocol Stop: 12/03/16 20:59 Last Admin: 10/09/16 21:11 Dose: 10 mg Calcitriol (Rocaltrol) 0.25 mcg PO DAILY [facility] Stop: 12/05/16 08:59 Last Admin: 10/09/16 09:02 Dose: 0.25 mcg Carvedilol (Coreg) 25 mg PO BID [facility] Stop: 12/03/16 08:59 Last Admin: 10/09/16 16:50 Dose: Not Given Docusate Sodium (Colace) 100 mg PO BID [facility] Stop: 12/03/16 08:59 Last Admin: 10/09/16 16:33 Dose: Not Given Donepezil HCl (Aricept) 5 mg PO HS [facility] Stop: 12/03/16 20:59 Last Admin: 10/09/16 21:11 Dose: 5 mg Epoetin Suraj (Epogen) 10,000 units SUBQ MoWeFr [facility] Stop: 12/05/16 13:43 Last Admin: 10/08/16 17:16 Dose: 10,000 units Ferrous Sulfate (Iron) 300 mg PO BID [facility] Stop: 12/04/16 16:59 Last Admin: 10/09/16 16:32 Dose: 300 mg Folic Acid (Folate) 1 mg PO DAILY [facility] Stop: 12/05/16 08:59 Last Admin: 10/09/16 09:02 Dose: 1 mg Azithromycin 250 mg/ Sodium (Chloride) 250 mls @ 250 mls/hr IV Q24HR [facility] Stop: 12/04/16 00:00 Last Admin: 10/09/16 00:42 Dose: 250 mls/hr Ceftriaxone Sodium 1 gm/ (Dextrose) 50 mls @ 100 mls/hr IV Q24H [facility] Stop: 12/03/16 21:59 Last Admin: 10/09/16 21:10 Dose: 100 mls/hr Insulin Aspart (Novolog) 0 units SUBQ ACHS [facility] PRN Reason: Protocol Stop: 12/03/16 07:29 Last Admin: 10/09/16 21:11 Dose: Not Given Levothyroxine Sodium (Synthroid) 0.05 mg PO QDAC [facility] Stop: 12/04/16 07:29 Last Admin: 10/09/16 06:47 Dose: 0.05 mg Lorazepam (Ativan) 0.5 mg PO Q6HR PRN; Protocol PRN Reason: Anxiety Stop: 12/03/16 08:08 Last Admin: 10/08/16 20:43 Dose: 0.5 mg Lorazepam (Ativan) 1 mg IVP Q4HR PRN; Protocol PRN Reason: Agitation Stop: 12/03/16 08:21 Last Admin: 10/09/16 00:42 Dose: 1 mg Multivitamins/Vitamin C (Theragran) 1 tab PO DAILY [facility] Stop: 12/03/16 08:59 Last Admin: 10/09/16 09:02 Dose: 1 tab Pantoprazole Sodium (Protonix) 40 mg PO DAILY [facility] Stop: 12/03/16 08:59 Last Admin: 10/09/16 09:17 Dose: 40 mg Quetiapine Fumarate (Seroquel) 25 mg PO BID [facility] PRN Reason: Protocol Stop: 12/03/16 08:59 Last Admin: 10/09/16 16:32 Dose: 25 mg Quetiapine Fumarate (Seroquel) 37.5 mg PO HS [facility] PRN Reason: Protocol Stop: 12/03/16 20:59 Last Admin: 10/09/16 21:12 Dose: Not Given Senna (Senna) 8.6 mg PO HS [facility] Stop: 12/03/16 20:59 Last Admin: 10/09/16 21:11 Dose: 8.6 mg Tramadol HCl (Ultram) 50 mg PO Q8HR PRN PRN Reason: Pain (Moderate) Stop: 12/03/16 08:08 Last Admin: 10/09/16 10:27 Dose: 50 mg Cardiovascular: Normal S1, Normal S2 Lungs: Clear to auscultation Abdomen: Soft, no Tender Assessment/Plan - Assessment Assessment: Altered mental state ? etiology ? worsening dementia Hypoxemia Pnemonia CHF HTN Hypothyroidism Hyperlipidemia Diabetes Old CVA Psych disorder Debitly Positive stool OB Colon stricture - Plan Plan: Continue antibiotics HHN/ oxygen support DC IV Fluids ( elevated BNP) ECHO EF 40% CT head and C spine reviewed no acute finding reported Monitor renal function Pulmonary and Neprhology on board 24 hr urine collection for protein and creatinine Tube feeding ST to re evaluate pt . If no success will discuss with family re: PEG Plan of care discussed with nursing staff
[2016-10-10] MEDS: INSULIN ASPART, RECOMBINANT 100 UNITS/ML SUBQ SCH ×4 (06:39→20:55)
[2016-10-10 07:24] LABS: HEMATOCRIT 26.1 % (35.0-45.0); HEMOGLOBIN 8.3 gm/dL (11.7-16.1); MEAN CELL VOLUME 78.1 fl (81-100); MEAN PLATELET VOLUME 8.4 fl; PLATELET COUNT 174 Th/cmm (150-400); RED BLOOD COUNT 3.34 Mil/cmm (3.80-5.20); RED CELL DISTRIBUTION WIDTH 20.2 % (11.5-20.0)
[2016-10-10 07:41] LABS: WHITE BLOOD COUNT 12.7 Th/cmm (4.8-10.8)
[2016-10-10 07:52] LABS: ANION GAP 8.6 (7.0-16.0); BUN - UREA NITROGEN 32 mg/dL (7-25); BUN/CREATININE RATIO 22.9; CALCIUM SERUM 8.3 mg/dL (8.6-10.3); CARBON DIOXIDE 25.4 mEq/L (21.0-31.0); CHLORIDE 107 mEq/L (98-107); CREATININE - SERUM 1.4 mg/dL (0.6-1.2); GLUCOSE 80 mg/dL (70-105); SODIUM SERUM 136 mEq/L (136-145)
[2016-10-10] MEDS: Ferrous Sulfate 300 MG/5 ML UDC PO SCH ×2 (08:44→16:08)
[2016-10-10] MEDS: Multivitamin Tab PO SCH (08:44)
[2016-10-10] MEDS: Pantoprazole 40 mg EC Tab PO SCH (08:44)
[2016-10-10] MEDS: Levothyroxine 0.05 Mg Tab PO SCH (08:45)
[2016-10-10 08:48] LABS: BAND NEUTROPHILE 6 % (0-10); EOSINOPHIL 1 % (0-5); NEUTROPHILS 80 % (40-80); TOTAL CELLS COUNTED 100
[2016-10-10 08:49] LABS: ANISOCYTOSIS 1+; MICROCYTOSIS 1+; PLATELET ESTIMATE ADEQUATE (NORMAL); PLATELET MORPHOLOGY NORMAL (NORMAL); POLYCHROMASIA 1+
--- NOTE | 2016-10-10 11:46 | Diagnostic Imaging Report ---
Portable chest x-ray HISTORY: Shortness of breath Compared with prior exam of 10/08/2016, there has developed virtually complete opacification of the left hemithorax. No focal processes seen within the right lung. IMPRESSION: Increasing density with virtual complete opacification of the left hemithorax.
[2016-10-10] MEDS: Albuterol/Ipratropium Neb 3 ML AERS HHN SCH ×3 (15:13→22:33)
--- NOTE | 2016-10-10 15:56 | Diagnostic Imaging Report ---
KUB abdominal film (portable) HISTORY: Pain, obstruction There is a nonspecific gas pattern of nondilated bowel. No radiographic evidence of obstruction. Extensive vascular calcification noted. Surgical clips noted in the right upper abdomen and right mid abdomen. IMPRESSION: 1. Nonspecific bowel gas pattern. No radiographic evidence of obstruction 2. Severe extensive atherosclerotic vascular changes 3. Surgical changes 4. Nasogastric tube extending into the region of the stomach
[2016-10-10] MEDS: Epoetin Alfa 20000 Units/mL Vial SUBQ SCH (16:06)
[2016-10-10] MEDS: Atorvastatin Calcium 10 MG TAB PO SCH (20:54)
[2016-10-11] MEDS: Albuterol/Ipratropium Neb 3 ML AERS HHN SCH ×5 (02:37→19:48)
[2016-10-11] MEDS ORDERED: Dextrose 50% 50 mL Abboject IVP ONE (05:49)
[2016-10-11] MEDS: INSULIN ASPART, RECOMBINANT 100 UNITS/ML SUBQ SCH ×4 (06:42→20:28)
[2016-10-11] MEDS: D5-0.45NS 1,000 ML IV SCH (07:30)
[2016-10-11] MEDS: Levothyroxine 0.05 Mg Tab PO SCH (07:54)
[2016-10-11 08:05] LABS: pH 7.38 (7.35-7.45)
[2016-10-11 08:06] LABS: ABG SOURCE Arterial; BE(B) 3.1 mmol/L (-3.0-3.0); CRITICAL VALUES REPORTED BY SH; FIO2 100
[2016-10-11] MEDS: Ferrous Sulfate 300 MG/5 ML UDC PO SCH ×2 (09:24→17:01)
[2016-10-11] MEDS: Pantoprazole 40 mg EC Tab PO SCH (09:24)
[2016-10-11] MEDS: Multivitamin Tab PO SCH (09:25)
[2016-10-11] MEDS ORDERED: Midazolam 1mg/ml 2 ml vial IV STA (10:25)
[2016-10-11] MEDS ORDERED: Midazolam 1mg/ml 2 ml vial IV ONE (10:27)
--- NOTE | 2016-10-11 12:37 | General Progress Note ---
Subjective - Review of Systems Service Date: 10/10/16 Subjective: Patient was seen and examined nurse was at the bedside pt breathing ok Patient was awaiting ST eval Objective - Results Result Diagrams: 10/10/16 06:47 10/10/16 06:47 Recent Labs: Laboratory Last Values WBC 12.7 Th/cmm (4.8-10.8) H D 10/10/16 06:47 RBC 3.34 Mil/cmm (3.80-5.20) L 10/10/16 06:47 Hgb 8.3 gm/dL (11.7-16.1) L 10/10/16 06:47 Hct 26.1 % (35.0-45.0) L 10/10/16 06:47 MCV 78.1 fl (81-100) L 10/10/16 06:47 MCH 25.0 pg (27.0-31.0) L 10/10/16 06:47 MCHC Differential 32.0 pg (28.0-36.0) 10/10/16 06:47 RDW 20.2 % (11.5-20.0) H 10/10/16 06:47 Plt Count 174 Th/cmm (150-400) 10/10/16 06:47 MPV 8.4 fl 10/10/16 06:47 Neutrophils % 75.3 % (40.0-80.0) 10/08/16 05:20 Band Neutrophils % 6 % (0-10) 10/10/16 06:47 Lymphocytes % 14.7 % (20.0-50.0) L 10/08/16 05:20 Monocytes % 7.6 % (2.0-10.0) 10/08/16 05:20 Eosinophils % 2.2 % (0.0-5.0) 10/08/16 05:20 Basophils % 0.2 % (0.0-2.0) 10/08/16 05:20 Neutrophils (Manual) 80 % (40-80) 10/10/16 06:47 Lymphocytes 10 % (20-50) L 10/10/16 06:47 Monocytes 3 % (2-10) 10/10/16 06:47 Eosinophils 1 % (0-5) 10/10/16 06:47 Platelet Estimate ADEQUATE (NORMAL) 10/10/16 06:47 Platelet Morphology NORMAL (NORMAL) 10/10/16 06:47 Polychromasia 1+ 10/10/16 06:47 Anisocytosis 1+ 10/10/16 06:47 Microcytosis 1+ 10/10/16 06:47 RBC Morph Micro Appear ABNORMAL (NORMAL) 10/10/16 06:47 PT 12.6 SECONDS (9.5-11.5) H 10/08/16 05:20 INR 1.25 (0.5-1.4) 10/08/16 05:20 Specimen Source Arterial 10/11/16 06:46 Sample Site RB 10/11/16 06:46 pH 7.38 (7.35-7.45) 10/11/16 06:46 pCO2 49.0 mmHg (35.0-45.0) H 10/11/16 06:46 pO2 58.0 mmHg (80.0-100.0) L 10/11/16 06:46 HCO3 29.0 mmol/L (20.0-26.0) H 10/11/16 06:46 Base Excess 3.1 mmol/L (-3.0-3.0) H 10/11/16 06:46 O2 Saturation 89.0 % (92.0-100.0) L 10/11/16 06:46 Will Test NA 10/11/16 06:46 Vent Rate NA 10/11/16 06:46 Inspired O2 100 10/11/16 06:46 Tidal Volume NA 10/11/16 06:46 PEEP NA 10/11/16 06:46 Pressure (ins/psv/peep) NA 10/11/16 06:46 Critical Value SH 10/11/16 06:46 Sodium 136 mEq/L (136-145) 10/10/16 06:47 Potassium 5.0 mEq/L (3.5-5.1) 10/10/16 06:47 Chloride 107 mEq/L (98-107) 10/10/16 06:47 Carbon Dioxide 25.4 mEq/L (21.0-31.0) 10/10/16 06:47 Anion Gap 8.6 (7.0-16.0) 10/10/16 06:47 BUN 32 mg/dL (7-25) H 10/10/16 06:47 Creatinine 1.4 mg/dL (0.6-1.2) H 10/10/16 06:47 Est GFR ( Amer) TNP 10/10/16 06:47 Est GFR (Non-Af Amer) TNP 10/10/16 06:47 BUN/Creatinine Ratio 22.9 10/10/16 06:47 Glucose 80 mg/dL (70-105) 10/10/16 06:47 POC Glucose 121 MG/DL (70 - 105) H 10/11/16 06:56 Hemoglobin A1c % 5.7 % (4.0-6.0) 10/03/16 20:08 Calcium 8.3 mg/dL (8.6-10.3) L 10/10/16 06:47 Phosphorus 4.4 mg/dL (2.5-5.0) 10/05/16 06:29 Magnesium 2.5 mg/dL (1.9-2.7) 10/05/16 06:29 Iron 20 ug/dL (27-139) L 10/05/16 06:29 TIBC 237 ug/dL (250-450) L 10/05/16 06:29 Iron Saturation 8 % (15-55) L 10/05/16 06:29 Unsaturated IBC 217 ug/dL (118-369) 10/05/16 06:29 Total Bilirubin 0.4 mg/dL (0.3-1.0) 10/05/16 06:29 AST 14 U/L (13-39) 10/05/16 06:29 ALT 14 U/L (7-52) 10/05/16 06:29 Alkaline Phosphatase 83 U/L (34-104) 10/05/16 06:29 Troponin I 0.01 ng/mL (0.01-0.05) 10/03/16 20:08 B-Natriuretic Peptide 2190.0 pg/mL (5.0-100.0) H 10/10/16 06:47 Total Protein 6.5 gm/dL (6.0-8.3) 10/05/16 06:29 Albumin 3.0 gm/dL (3.7-5.3) L 10/05/16 06:29 Globulin 3.5 gm/dL 10/05/16 06:29 Albumin/Globulin Ratio 0.9 (1.0-1.8) L 10/05/16 06:29 Triglycerides 106 mg/dL (<150) 10/03/16 20:08 Cholesterol 97 mg/dL (<200) 10/03/16 20:08 LDL Cholesterol Direct 42 mg/dL (75-193) L 10/03/16 20:08 HDL Cholesterol 38 mg/dL (23-92) 10/03/16 20:08 Carcinoembryonic Ag 4.1 ng/mL (0.0-4.7) 10/10/16 06:47 TSH 14.69 uIU/ml (0.34-5.60) H 10/03/16 20:08 PTH Intact 147 pg/mL (15-65) H 10/06/16 07:20 Urine Source CLEAN C 10/05/16 10:45 Urine Color YELLOW 10/05/16 10:45 Urine Clarity SL. CLOUDY (CLEAR) 10/05/16 10:45 Urine pH 7.5 10/05/16 10:45 Ur Specific [place] 1.020 (1.005-1.030) 10/05/16 10:45 Urine Protein TRACE mg/dL (NEGATIVE) 10/05/16 10:45 Urine Glucose (UA) NEGATIVE mg/dL (NEGATIVE) 10/05/16 10:45 Urine Ketones NEGATIVE mg/dL (NEGATIVE) 10/05/16 10:45 Urine Blood TRACE (NEGATIVE) 10/05/16 10:45 Urine Nitrate NEGATIVE (NEGATIVE) 10/05/16 10:45 Urine Bilirubin NEGATIVE (NEGATIVE) 10/05/16 10:45 Urine Urobilinogen 0.2 E.U./dL (0.2 - 1.0) 10/05/16 10:45 Ur Leukocyte Esterase NEGATIVE (NEGATIVE) 10/05/16 10:45 Urine RBC 0-2 /hpf (0-5) 10/05/16 10:45 Urine WBC 0-2 /hpf (0-5) 10/05/16 10:45 Ur Epithelial Cells RARE /lpf (FEW) 10/05/16 10:45 Urine Bacteria NONE SEEN /hpf (NONE SEEN) 10/05/16 10:45 U Random Total Protein 34.0 mg/dL 10/06/16 06:00 Urine Collection Time 24 hours 10/06/16 06:00 Urine Total Volume 1850 ml 10/06/16 06:00 Urine Creatinine 23.0 mg/dl (28.0-217.0) L 10/06/16 06:00 Creat Clearance 24 Hr 18 ml/min (88.00-128.00) L 10/06/16 06:00 U Tot Protein 24h, Calc 629.0 mg/24 hr (0-165) H 10/06/16 06:00 Body Surface Area 1.47 10/06/16 06:00 Stool Occult Blood POSITIVE (NEGATIVE) 10/07/16 02:00 RPR NONREACTIVE (NONREACTIVE) 10/03/16 20:08 - Physical Exam Vitals and I&O: Vital Signs Temp 97.4 F 10/11/16 04:05 Pulse 60 10/11/16 10:52 Resp 24 10/11/16 07:48 BP 144/56 10/11/16 09:23 Pulse Ox 98 10/11/16 10:52 Intake & Output 10/10/16 10/11/16 10/11/16 18:59 06:59 18:59 Intake Total 700 450 Output Total 500 1200 Balance 200 -750 Intake: Intake, IV Amount 50 [id number] 1 gm In 50 Dextrose 5% 50 ml @ 100 mls/hr IV Q24H [facility] Rx#: [id number] Oral 20 Tube Feeding 480 400 Other 200 Output: Urine 500 1200 Other: # Bowel Movements 0 Active Medications: Current Medications Acetaminophen (Tylenol) 650 mg PO Q6HR PRN PRN Reason: Pain (Mild) Stop: 12/03/16 08:08 Last Admin: 10/08/16 02:40 Dose: 650 mg Acetylcysteine (Mucomyst 20%) 2 ml HHN Q4HRT [facility] Stop: 12/09/16 14:59 Last Admin: 10/11/16 11:02 Dose: 2 ml Albuterol/Ipratropium (Duoneb Neb) 3 ml HHN Q2HR PRN PRN Reason: Shortness of Breath Stop: 12/03/16 08:08 Albuterol/Ipratropium (Duoneb Neb) 3 ml HHN Q4HRT [facility] Stop: 12/09/16 14:59 Last Admin: 10/11/16 11:02 Dose: 3 ml Amlodipine Besylate (Norvasc) 5 mg PO DAILY [facility] Stop: 12/03/16 08:59 Last Admin: 10/11/16 09:20 Dose: 5 mg Atorvastatin Calcium (Lipitor) 10 mg PO HS [facility] PRN Reason: Protocol Stop: 12/03/16 20:59 Last Admin: 10/10/16 20:54 Dose: 10 mg Calcitriol (Rocaltrol) 0.25 mcg PO DAILY [facility] Stop: 12/05/16 08:59 Last Admin: 10/11/16 09:20 Dose: 0.25 mcg Carvedilol (Coreg) 25 mg PO BID [facility] Stop: 12/03/16 08:59 Last Admin: 10/11/16 09:23 Dose: 25 mg Chlorhexidine Gluconate (Peridex) 15 ml MM 0800,1999 [facility] Stop: 12/10/16 19:59 Docusate Sodium (Colace) 100 mg PO BID [facility] Stop: 12/03/16 08:59 Last Admin: 10/11/16 09:24 Dose: 100 mg Donepezil HCl (Aricept) 5 mg PO HS [facility] Stop: 12/03/16 20:59 Last Admin: 10/10/16 20:54 Dose: 5 mg Epoetin Suraj (Epogen) 10,000 units SUBQ MoWeFr [facility] Stop: 12/05/16 13:43 Last Admin: 10/10/16 16:06 Dose: 10,000 units Ferrous Sulfate (Iron) 300 mg PO BID [facility] Stop: 12/04/16 16:59 Last Admin: 10/11/16 09:24 Dose: 300 mg Folic Acid (Folate) 1 mg PO DAILY [facility] Stop: 12/05/16 08:59 Last Admin: 10/11/16 09:24 Dose: 1 mg Furosemide (Lasix) 20 mg IVP DAILY [facility] Stop: 12/09/16 17:29 Last Admin: 10/10/16 17:49 Dose: 20 mg Ceftriaxone Sodium 1 gm/ (Dextrose) 50 mls @ 100 mls/hr IV Q24H [facility] Stop: 12/03/16 21:59 Last Infusion: 10/10/16 22:12 Dose: Infused Dextrose/Sodium Chloride (D5-0.45ns) 1,000 mls @ 60 mls/hr IV .[id number] [facility] Stop: 12/10/16 06:59 Last Admin: 10/11/16 07:30 Dose: 60 mls/hr Insulin Aspart (Novolog) 0 units SUBQ ACHS [facility] PRN Reason: Protocol Stop: 12/03/16 07:29 Last Admin: 10/11/16 06:42 Dose: Not Given Levothyroxine Sodium (Synthroid) 0.05 mg PO QDAC [facility] Stop: 12/04/16 07:29 Last Admin: 10/11/16 07:54 Dose: 0.05 mg Lorazepam (Ativan) 0.5 mg PO Q6HR PRN; Protocol PRN Reason: Anxiety Stop: 12/03/16 08:08 Last Admin: 10/08/16 20:43 Dose: 0.5 mg Lorazepam (Ativan) 1 mg IVP Q4HR PRN; Protocol PRN Reason: Agitation Stop: 12/03/16 08:21 Last Admin: 10/11/16 10:45 Dose: 1 mg Multivitamins/Vitamin C (Theragran) 1 tab PO DAILY [facility] Stop: 12/03/16 08:59 Last Admin: 10/11/16 09:25 Dose: 1 tab Pantoprazole Sodium (Protonix) 40 mg PO DAILY [facility] Stop: 12/03/16 08:59 Last Admin: 10/11/16 09:24 Dose: 40 mg Quetiapine Fumarate (Seroquel) 12.5 mg PO DAILY [facility] PRN Reason: Protocol Stop: 12/10/16 08:59 Last Admin: 10/11/16 09:25 Dose: 12.5 mg Senna (Senna) 8.6 mg PO HS [facility] Stop: 12/03/16 20:59 Last Admin: 10/10/16 20:54 Dose: 8.6 mg Tramadol HCl (Ultram) 50 mg PO Q8HR PRN PRN Reason: Pain (Moderate) Stop: 12/03/16 08:08 Last Admin: 10/11/16 01:13 Dose: 50 mg Cardiovascular: Normal S1, Normal S2 Lungs: Other (rales) Abdomen: Soft, no Tender - Procedures Procedures: Procedures Procedure Code Date COLONOSCOPY AND BIOPSY 49881 10/04/16 EGD DIAGNOSTIC BRUSH WASH 45089 10/04/16 EXCISION OF LARGE INTESTINE, ENDO, DIAGN [id number] 10/04/16 INSPECTION OF UPPER INTESTINAL TRACT, ENDO [id number] 10/04/16 Assessment/Plan - Assessment Assessment: Altered mental state ? etiology ? worsening dementia Hypoxemia Pnemonia CHF HTN Hypothyroidism Hyperlipidemia Diabetes Old CVA Psych disorder Debitly Positive stool OB Colon stricture - Plan Plan: Continue antibiotics HHN/ oxygen support DC IV Fluids ( elevated BNP) ECHO EF 40% CT head and C spine reviewed no acute finding reported Monitor renal function Pulmonary and Neprhology on board 24 hr urine collection for protein and creatinine Tube feeding ST to re evaluate pt . If no success will discuss with family re: PEG I discussed the case with ST. Awaiting re-eval Decrease Seroquel (pt seems very sleepy) Plan of care discussed with nursing staff
[2016-10-11 13:08] LABS: ABG SOURCE art; BE(B) 4.5 mmol/L (-3.0-3.0); HCO3 29.2 mmol/L (20.0-26.0); pH 7.44 (7.35-7.45)
[2016-10-11 13:09] LABS: CRITICAL VALUES REPORTED BY SH; FIO2 60; MECH RATE 12; MECH VT 400
[2016-10-11] MEDS: Chlorhexidine Gluconate 0.12% 15mL Mouthwash MM SCH (20:22)
[2016-10-11] MEDS: Atorvastatin Calcium 10 MG TAB PO SCH (20:30)
[2016-10-12] MEDS: D5-0.45NS 1,000 ML IV SCH ×2 (00:01→09:42)
[2016-10-12] MEDS: Albuterol/Ipratropium Neb 3 ML AERS HHN SCH ×7 (00:46→22:03)
--- NOTE | 2016-10-12 04:21 | Progress Notes ---
ADDENDUM Covering for Dr. Payne. The patient is unable to carrying out conversation as she is intubated and sedated. I recommend that you continue treatment and I will continue to follow up the patient. Thank you very much for allowing me to participate in the care of this most interesting lady. JOB# [id number]
[2016-10-12 05:11] LABS: MEAN CELL VOLUME 77.4 fl (81-100); MEAN CORPUSCULAR HEMOGLOBIN 25.5 pg (27.0-31.0); MEAN CORPUSCULAR HGB CONC 32.9 pg (28.0-36.0); MEAN PLATELET VOLUME 8.5 fl; PLATELET COUNT 194 Th/cmm (150-400); RED BLOOD COUNT 2.92 Mil/cmm (3.80-5.20); RED CELL DISTRIBUTION WIDTH 21.4 % (11.5-20.0); WHITE BLOOD COUNT 15.2 Th/cmm (4.8-10.8)
[2016-10-12 05:17] LABS: HEMATOCRIT 22.6 % (35.0-45.0); HEMOGLOBIN 7.4 gm/dL (11.7-16.1)
[2016-10-12 05:53] LABS: ALB/GLOB RATIO 0.8 (1.0-1.8); ALKALINE PHOSPHATASE 61 U/L (34-104); BILIRUBIN,TOTAL 0.4 mg/dL (0.3-1.0); BUN - UREA NITROGEN 40 mg/dL (7-25); BUN/CREATININE RATIO 23.5; CALCIUM SERUM 8.1 mg/dL (8.6-10.3); CARBON DIOXIDE 27.4 mEq/L (21.0-31.0); CREATININE - SERUM 1.7 mg/dL (0.6-1.2); GLUCOSE 156 mg/dL (70-105); SGOT 14 U/L (13-39); SGPT/ALT 7 U/L (7-52)
[2016-10-12] MEDS: INSULIN ASPART, RECOMBINANT 100 UNITS/ML SUBQ SCH ×4 (06:51→20:42)
[2016-10-12] MEDS: Levothyroxine 0.05 Mg Tab PO SCH (06:52)
[2016-10-12 07:15] LABS: BAND NEUTROPHILE 1 % (0-10); EOSINOPHIL 1 % (0-5); NEUTROPHILS 86 % (40-80); PLATELET ESTIMATE ADEQUATE (NORMAL); PLATELET MORPHOLOGY NORMAL (NORMAL); TOTAL CELLS COUNTED 100
[2016-10-12 07:16] LABS: ANISOCYTOSIS 1+; MICROCYTOSIS 1+
[2016-10-12] MEDS: Chlorhexidine Gluconate 0.12% 15mL Mouthwash MM SCH ×2 (07:55→22:18)
[2016-10-12 07:58] LABS: CHLORIDE 102 mEq/L (98-107); POTASSIUM SERUM 4.5 mEq/L (3.5-5.1); SODIUM SERUM 136 mEq/L (136-145)
[2016-10-12 08:43] LABS: ANION GAP 11.1 (7.0-16.0)
[2016-10-12] MEDS: Multivitamin Tab PO SCH (08:58)
[2016-10-12] MEDS: Pantoprazole 40 mg EC Tab PO SCH (08:58)
[2016-10-12] MEDS: Ferrous Sulfate 300 MG/5 ML UDC PO SCH ×2 (08:58→16:45)
[2016-10-12 09:15] LABS: ABG SOURCE Arterial; ALLEN TEST PASS; BE(B) 6.3 mmol/L (-3.0-3.0); CRITICAL VALUES REPORTED BY PW; FIO2 30; HCO3 30.6 mmol/L (20.0-26.0); MECH RATE 12; MECH VT 400; pH 7.47 (7.35-7.45)
[2016-10-12] MEDS: Pantoprazole 40 mg/Packet NG SCH (09:41)
--- NOTE | 2016-10-12 09:42 | Progress Notes ---
Case discussed with the staff of the patient, review records. Covering for Dr. Payne. The patient was transferred to ICU overnight as his oxygen level is going down. The patient is unable to participate in a meaningful conversation. Continues to have ____. JOB# [id number]
--- NOTE | 2016-10-12 10:03 | Diagnostic Imaging Report ---
Portable chest x-ray HISTORY: Shortness of breath Compared with the prior exam of 10/11/2016, there are persistent diffuse bilateral infiltrates. Findings may be associated with pulmonary edema. Evidence of a persistent left pleural effusion. IMPRESSION: 1. Persistent diffuse bilateral infiltrates that may be associated with pulmonary edema. Underlying pneumonia cannot be excluded. 2. Findings consistent with persistent left pleural effusion 3. Endotracheal tube tip approximately 1.0 cm above the delmy. This may be pulled back approximately 1-2 cm.
--- NOTE | 2016-10-12 15:03 | General Progress Note ---
Subjective - Review of Systems Service Date: 10/12/16 Subjective: Patient was seen and examined nurse was at the bedside pt breathing ok remains on vent difficult to arouse Objective - Results Result Diagrams: 10/12/16 04:40 10/12/16 04:40 Recent Labs: Laboratory Last Values WBC 15.2 Th/cmm (4.8-10.8) H 10/12/16 04:40 RBC 2.92 Mil/cmm (3.80-5.20) L 10/12/16 04:40 Hgb 7.4 gm/dL (11.7-16.1) L* 10/12/16 04:40 Hct 22.6 % (35.0-45.0) L* D 10/12/16 04:40 MCV 77.4 fl (81-100) L 10/12/16 04:40 MCH 25.5 pg (27.0-31.0) L 10/12/16 04:40 MCHC Differential 32.9 pg (28.0-36.0) 10/12/16 04:40 RDW 21.4 % (11.5-20.0) H 10/12/16 04:40 Plt Count 194 Th/cmm (150-400) 10/12/16 04:40 MPV 8.5 fl 10/12/16 04:40 Neutrophils % 75.3 % (40.0-80.0) 10/08/16 05:20 Band Neutrophils % 1 % (0-10) 10/12/16 04:40 Lymphocytes % 14.7 % (20.0-50.0) L 10/08/16 05:20 Monocytes % 7.6 % (2.0-10.0) 10/08/16 05:20 Eosinophils % 2.2 % (0.0-5.0) 10/08/16 05:20 Basophils % 0.2 % (0.0-2.0) 10/08/16 05:20 Neutrophils (Manual) 86 % (40-80) H 10/12/16 04:40 Lymphocytes 4 % (20-50) L 10/12/16 04:40 Monocytes 8 % (2-10) 10/12/16 04:40 Eosinophils 1 % (0-5) 10/12/16 04:40 Platelet Estimate ADEQUATE (NORMAL) 10/12/16 04:40 Platelet Morphology NORMAL (NORMAL) 10/12/16 04:40 Polychromasia 1+ 10/10/16 06:47 Anisocytosis 1+ 10/12/16 04:40 Microcytosis 1+ 10/12/16 04:40 RBC Morph Micro Appear ABNORMAL (NORMAL) 10/12/16 04:40 PT 12.6 SECONDS (9.5-11.5) H 10/08/16 05:20 INR 1.25 (0.5-1.4) 10/08/16 05:20 Specimen Source Arterial 10/12/16 08:56 Sample Site Left Radial 10/12/16 08:56 pH 7.47 (7.35-7.45) H 10/12/16 08:56 pCO2 42.0 mmHg (35.0-45.0) 10/12/16 08:56 pO2 71.0 mmHg (80.0-100.0) L 10/12/16 08:56 HCO3 30.6 mmol/L (20.0-26.0) H 10/12/16 08:56 Base Excess 6.3 mmol/L (-3.0-3.0) H 10/12/16 08:56 O2 Saturation 95.0 % (92.0-100.0) 10/12/16 08:56 Will Test PASS 10/12/16 08:56 Vent Rate 12 10/12/16 08:56 Inspired O2 30 10/12/16 08:56 Tidal Volume 400 10/12/16 08:56 PEEP NA 10/11/16 12:45 Pressure (ins/psv/peep) NA 10/11/16 12:45 Critical Value PW 10/12/16 08:56 Sodium 136 mEq/L (136-145) 10/12/16 04:40 Potassium 4.5 mEq/L (3.5-5.1) 10/12/16 04:40 Chloride 102 mEq/L (98-107) 10/12/16 04:40 Carbon Dioxide 27.4 mEq/L (21.0-31.0) 10/12/16 04:40 Anion Gap 11.1 (7.0-16.0) 10/12/16 04:40 BUN 40 mg/dL (7-25) H 10/12/16 04:40 Creatinine 1.7 mg/dL (0.6-1.2) H 10/12/16 04:40 Est GFR ( Amer) TNP 10/12/16 04:40 Est GFR (Non-Af Amer) TNP 10/12/16 04:40 BUN/Creatinine Ratio 23.5 10/12/16 04:40 Glucose 156 mg/dL (70-105) H 10/12/16 04:40 POC Glucose 139 MG/DL (70 - 105) H 10/12/16 11:47 Hemoglobin A1c % 5.7 % (4.0-6.0) 10/03/16 20:08 Calcium 8.1 mg/dL (8.6-10.3) L 10/12/16 04:40 Phosphorus 4.4 mg/dL (2.5-5.0) 10/05/16 06:29 Magnesium 2.1 mg/dL (1.9-2.7) 10/12/16 04:40 Iron 20 ug/dL (27-139) L 10/05/16 06:29 TIBC 237 ug/dL (250-450) L 10/05/16 06:29 Iron Saturation 8 % (15-55) L 10/05/16 06:29 Unsaturated IBC 217 ug/dL (118-369) 10/05/16 06:29 Total Bilirubin 0.4 mg/dL (0.3-1.0) 10/12/16 04:40 AST 14 U/L (13-39) 10/12/16 04:40 ALT 7 U/L (7-52) 10/12/16 04:40 Alkaline Phosphatase 61 U/L (34-104) 10/12/16 04:40 Troponin I 0.01 ng/mL (0.01-0.05) 10/03/16 20:08 B-Natriuretic Peptide 2190.0 pg/mL (5.0-100.0) H 10/10/16 06:47 Total Protein 5.5 gm/dL (6.0-8.3) L 10/12/16 04:40 Albumin 2.4 gm/dL (3.7-5.3) L 10/12/16 04:40 Globulin 3.1 gm/dL 10/12/16 04:40 Albumin/Globulin Ratio 0.8 (1.0-1.8) L 10/12/16 04:40 Triglycerides 106 mg/dL (<150) 10/03/16 20:08 Cholesterol 97 mg/dL (<200) 10/03/16 20:08 LDL Cholesterol Direct 42 mg/dL (75-193) L 10/03/16 20:08 HDL Cholesterol 38 mg/dL (23-92) 10/03/16 20:08 Carcinoembryonic Ag 4.1 ng/mL (0.0-4.7) 10/10/16 06:47 TSH 14.69 uIU/ml (0.34-5.60) H 10/03/16 20:08 PTH Intact 147 pg/mL (15-65) H 10/06/16 07:20 Urine Source CLEAN C 10/05/16 10:45 Urine Color YELLOW 10/05/16 10:45 Urine Clarity SL. CLOUDY (CLEAR) 10/05/16 10:45 Urine pH 7.5 10/05/16 10:45 Ur Specific [place] 1.020 (1.005-1.030) 10/05/16 10:45 Urine Protein TRACE mg/dL (NEGATIVE) 10/05/16 10:45 Urine Glucose (UA) NEGATIVE mg/dL (NEGATIVE) 10/05/16 10:45 Urine Ketones NEGATIVE mg/dL (NEGATIVE) 10/05/16 10:45 Urine Blood TRACE (NEGATIVE) 10/05/16 10:45 Urine Nitrate NEGATIVE (NEGATIVE) 10/05/16 10:45 Urine Bilirubin NEGATIVE (NEGATIVE) 10/05/16 10:45 Urine Urobilinogen 0.2 E.U./dL (0.2 - 1.0) 10/05/16 10:45 Ur Leukocyte Esterase NEGATIVE (NEGATIVE) 10/05/16 10:45 Urine RBC 0-2 /hpf (0-5) 10/05/16 10:45 Urine WBC 0-2 /hpf (0-5) 10/05/16 10:45 Ur Epithelial Cells RARE /lpf (FEW) 10/05/16 10:45 Urine Bacteria NONE SEEN /hpf (NONE SEEN) 10/05/16 10:45 U Random Total Protein 34.0 mg/dL 10/06/16 06:00 Urine Collection Time 24 hours 10/06/16 06:00 Urine Total Volume 1850 ml 10/06/16 06:00 Urine Creatinine 23.0 mg/dl (28.0-217.0) L 10/06/16 06:00 Creat Clearance 24 Hr 18 ml/min (88.00-128.00) L 10/06/16 06:00 U Tot Protein 24h, Calc 629.0 mg/24 hr (0-165) H 10/06/16 06:00 Body Surface Area 1.47 10/06/16 06:00 Stool Occult Blood POSITIVE (NEGATIVE) 10/07/16 02:00 RPR NONREACTIVE (NONREACTIVE) 10/03/16 20:08 Blood Type AB POSITIVE 10/12/16 09:40 Antibody Screen NEGATIVE 10/12/16 09:40 Crossmatch See Detail 10/12/16 09:40 - Physical Exam Vitals and I&O: Vital Signs Temp 98.1 F 10/12/16 12:00 Pulse 60 10/12/16 14:55 Resp 17 10/12/16 14:00 BP 137/48 10/12/16 14:00 Pulse Ox 99 10/12/16 14:55 Intake & Output 10/11/16 10/12/16 10/12/16 18:59 06:59 18:59 Intake Total 720 1551 Output Total 550 650 Balance 170 901 Intake: Intake, IV Amount 991 D5-0.45NS 1,000 ml @ 60 991 mls/hr IV .[id number] [facility] Rx #:[id number] Tube Feeding 320 480 Other 400 80 Output: Urine 550 650 Other: # Bowel Movements 2 2 Stool Characteristics Soft Soft Brown Brown Green Green Active Medications: Current Medications Acetaminophen (Tylenol) 650 mg PO Q6HR PRN PRN Reason: Pain (Mild) Stop: 12/03/16 08:08 Last Admin: 10/08/16 02:40 Dose: 650 mg Acetylcysteine (Mucomyst 20%) 2 ml HHN Q4HRT [facility] Stop: 12/09/16 14:59 Last Admin: 10/12/16 14:55 Dose: 2 ml Albuterol/Ipratropium (Duoneb Neb) 3 ml HHN Q2HR PRN PRN Reason: Shortness of Breath Stop: 12/03/16 08:08 Albuterol/Ipratropium (Duoneb Neb) 3 ml HHN Q4HRT [facility] Stop: 12/09/16 14:59 Last Admin: 10/12/16 14:55 Dose: 3 ml Amlodipine Besylate (Norvasc) 5 mg PO DAILY [facility] Stop: 12/03/16 08:59 Last Admin: 10/12/16 09:00 Dose: 5 mg Atorvastatin Calcium (Lipitor) 10 mg PO HS [facility] PRN Reason: Protocol Stop: 12/03/16 20:59 Last Admin: 10/11/16 20:30 Dose: 10 mg Calcitriol (Rocaltrol) 0.25 mcg PO DAILY [facility] Stop: 12/05/16 08:59 Last Admin: 10/12/16 08:57 Dose: 0.25 mcg Carvedilol (Coreg) 25 mg PO BID [facility] Stop: 12/03/16 08:59 Last Admin: 10/12/16 09:00 Dose: 25 mg Chlorhexidine Gluconate (Peridex) 15 ml MM 08,1999 [facility] Stop: 12/10/16 19:59 Last Admin: 10/12/16 07:55 Dose: 15 ml Docusate Sodium (Colace) 100 mg PO BID [facility] Stop: 12/03/16 08:59 Last Admin: 10/12/16 08:57 Dose: 100 mg Donepezil HCl (Aricept) 5 mg PO HS [facility] Stop: 12/03/16 20:59 Last Admin: 10/11/16 20:22 Dose: 5 mg Epoetin Suraj (Epogen) 10,000 units SUBQ MoWeFr [facility] Stop: 12/05/16 13:43 Last Admin: 10/10/16 16:06 Dose: 10,000 units Ferrous Sulfate (Iron) 300 mg PO BID [facility] Stop: 12/04/16 16:59 Last Admin: 10/12/16 08:58 Dose: 300 mg Folic Acid (Folate) 1 mg PO DAILY [facility] Stop: 12/05/16 08:59 Last Admin: 10/12/16 08:58 Dose: 1 mg Furosemide (Lasix) 20 mg IVP DAILY [facility] Stop: 12/09/16 17:29 Last Admin: 10/12/16 09:00 Dose: 20 mg Dextrose/Sodium Chloride (D5-0.45ns) 1,000 mls @ 30 mls/hr IV .Q24H [facility] Stop: 12/10/16 06:59 Last Admin: 10/12/16 09:42 Dose: 30 mls/hr Piperacillin Sod/Tazobactam (Sod 2.25 gm/ Sodium Chloride) 50 mls @ 100 mls/hr IV Q8HR [facility] Stop: 12/11/16 14:59 Insulin Aspart (Novolog) 0 units SUBQ ACHS [facility] PRN Reason: Protocol Stop: 12/03/16 07:29 Last Admin: 10/12/16 11:55 Dose: Not Given Levothyroxine Sodium (Synthroid) 0.05 mg PO QDAC [facility] Stop: 12/04/16 07:29 Last Admin: 10/12/16 06:52 Dose: 0.05 mg Lorazepam (Ativan) 0.5 mg IVP Q4HR PRN; Protocol PRN Reason: Agitation Stop: 12/10/16 12:45 Last Admin: 10/12/16 01:33 Dose: 0.5 mg Multivitamins/Vitamin C (Theragran) 1 tab PO DAILY [facility] Stop: 12/03/16 08:59 Last Admin: 10/12/16 08:58 Dose: 1 tab Pantoprazole Sodium (Protonix) 40 mg NG DAILY CRISTIAN Stop: 12/03/16 08:59 Last Admin: 10/12/16 09:41 Dose: 40 mg Quetiapine Fumarate (Seroquel) 12.5 mg PO DAILY CRISTIAN PRN Reason: Protocol Stop: 12/10/16 08:59 Last Admin: 10/12/16 09:01 Dose: Not Given Senna (Senna) 8.6 mg PO HS CRISTIAN Stop: 12/03/16 20:59 Last Admin: 10/11/16 20:22 Dose: 8.6 mg Cardiovascular: Regular rate Lungs: Other (rales ) Abdomen: Soft, no Tender, no Distended - Procedures Procedures: Procedures Procedure Code Date COLONOSCOPY AND BIOPSY 73644 10/04/16 EGD DIAGNOSTIC BRUSH WASH 75525 10/04/16 EXCISION OF LARGE INTESTINE, ENDO, DIAGN [id number] 10/04/16 INSPECTION OF UPPER INTESTINAL TRACT, ENDO [id number] 10/04/16 Assessment/Plan - Assessment Assessment: Altered mental state ? etiology ? worsening dementia Hypoxemia Pnemonia CHF HTN Hypothyroidism Hyperlipidemia Diabetes Old CVA Psych disorder Debitly Positive stool OB Colon stricture - Plan Plan: Zosyn started Vent support PRBC ordered due to low HH ECHO EF 40% Cardiology on board. Lasix Monitor vitals and I/O Monitor pulmonary and renal function Pulmonary and Neprhology on board Tube feeding Follow up lab and chest xray in am Plan of care discussed with nursing staff
[2016-10-12] MEDS ORDERED: Probiotic Screen MC PRN (15:46)
[2016-10-12] MEDS: Atorvastatin Calcium 10 MG TAB PO SCH (20:41)
--- NOTE | 2016-10-13 00:08 | Consultation ---
The patient of Dr. Austin Barragan. HISTORY AND PHYSICAL: This is 76 years old female patient recently admitted to [facility] because of altered level of consciousness. The patient had ____. The patient had colonoscopy with possible tumor. The patient apparently, at the present time, is on ventilator with respiratory failure for pneumonia. The patient developed supraventricular tachycardia and hence, Cardiology consult was requested. PAST MEDICAL HISTORY: Acute respiratory failure, hypertension, CVA with late effect, hyperlipidemia, coronary artery bypass, sick sinus syndrome with pacemaker, diabetes mellitus____ type 2 insulin dependent diabetes mellitus, congestive heart failure, systolic dysfunction, cardiomyopathy, major depression, protein-calorie malnutrition. FAMILY HISTORY: Unremarkable. SOCIAL HISTORY: No history of smoking, alcohol abuse. ALLERGIES: No known allergies. PHYSICAL EXAMINATION: VITAL SIGNS: Blood pressure 130/80, pulse 140, respirations on ventilator. HEAD: Normocephalic. No lumps or bumps. EYES: Pupils equal, reactive to light. Fundi show AV nicking, sclerae white, conjunctivae pink. NECK: Carotid 2+. Normal upstroke. JVD 10 cm above the sternal angle. Thyroid not palpable. Lymph nodes not palpable. CHEST: Shows increased AP diameter. No kyphosis or scoliosis. LUNGS: Bilateral wheezing, rhonchi, prolonged expiration. HEART: PMI, fifth intercostal space with [id number] line. S1, S2, S3, S4, systolic murmur, grade 2/6, lower left sternal border without radiation. ABDOMEN: Soft. The patient has tenderness. No rebound tenderness. Bowel sounds active. RECTAL: Deferred. EXTREMITIES: Peripheral pulses 1+. No pedal edema. CLINICAL IMPRESSION: Acute respiratory failure, on ventilator, supraventricular tachycardia, hypertension, CVA with late effect, hyperlipidemia, coronary artery bypass, stable angina, sick sinus syndrome with pacemaker, diabetes mellitus____ type 2 insulin dependent diabetes mellitus, congestive heart failure, systolic dysfunction, ejection fraction 40%, major depression, protein-calorie malnutrition, osteoporosis. PLAN: The patient to continue present care and monitor the patient closely, surgical evaluation for possible tumor. The patient's condition is guarded. JOB# [id number]
[2016-10-13] MEDS: Albuterol/Ipratropium Neb 3 ML AERS HHN SCH ×6 (02:21→22:57)
[2016-10-13 05:29] LABS: % BASOPHILS 1.9 % (0.0-2.0); % EOSINOPHILS 1.9 % (0.0-5.0); % LYMPHOCYTES 9.5 % (20.0-50.0); % MONOCYTES 7.7 % (2.0-10.0); MEAN CELL VOLUME 79.9 fl (81-100); MEAN CORPUSCULAR HGB CONC 33.8 pg (28.0-36.0); MEAN PLATELET VOLUME 8.5 fl; NEUTROPHILE ABSOLUTE 8.7 Th/cmm (1.8-8.0); PLATELET COUNT 188 Th/cmm (150-400); RED BLOOD COUNT 4.38 Mil/cmm (3.80-5.20); RED CELL DISTRIBUTION WIDTH 17.6 % (11.5-20.0)
[2016-10-13 05:32] LABS: HEMOGLOBIN 11.8 gm/dL (11.7-16.1); WHITE BLOOD COUNT 10.9 Th/cmm (4.8-10.8)
[2016-10-13 06:26] LABS: ANION GAP 6.2 (7.0-16.0); BUN - UREA NITROGEN 44 mg/dL (7-25); BUN/CREATININE RATIO 25.9; CALCIUM SERUM 8.4 mg/dL (8.6-10.3); CARBON DIOXIDE 25.7 mEq/L (21.0-31.0); CHLORIDE 102 mEq/L (98-107); CREATININE - SERUM 1.7 mg/dL (0.6-1.2); GLUCOSE 166 mg/dL (70-105); POTASSIUM SERUM 3.9 mEq/L (3.5-5.1); SODIUM SERUM 130 mEq/L (136-145)
[2016-10-13] MEDS: Levothyroxine 0.05 Mg Tab PO SCH (06:47)
[2016-10-13] MEDS: INSULIN ASPART, RECOMBINANT 100 UNITS/ML SUBQ SCH ×4 (06:59→21:26)
[2016-10-13] MEDS: Chlorhexidine Gluconate 0.12% 15mL Mouthwash MM SCH ×2 (07:58→20:10)
[2016-10-13] MEDS: Multivitamin Tab PO SCH (08:37)
[2016-10-13] MEDS: Pantoprazole 40 mg/Packet NG SCH (08:37)
[2016-10-13] MEDS: Ferrous Sulfate 300 MG/5 ML UDC PO SCH ×2 (08:37→16:31)
[2016-10-13] MEDS: Lactobacillus Rhamnosus 10 Billion CFU Capsule PO SCH (08:39)
--- NOTE | 2016-10-13 09:22 | Progress Notes ---
Case was discussed with staff of the patient. The patient continues to be treated in the ICU. Mood is agitated sometimes. She did get Ativan this morning. She was fed by NG tube. She is unresponsive. She is ____ sedated. She ____ Seroquel and we will continue to watch the patient and follow up with the patient. Thank you very much for allowing me to participate in the care of this most interesting lady. JOB# [id number]
--- NOTE | 2016-10-13 11:01 | Diagnostic Imaging Report ---
Portable chest x-ray HISTORY: Shortness of breath Compared with the prior exam of 10/12/2016, no change in bilateral infiltrates. Evidence of a relatively small left pleural effusion. An endotracheal tube tip is approximately 1.0 cm above the delmy. IMPRESSION: 1. No change in the cardiopulmonary status as noted above.
--- NOTE | 2016-10-13 11:04 | Diagnostic Imaging Report ---
Portable chest x-ray HISTORY: Shortness of breath, endotracheal tube placement Compared with prior exam taken earlier in the day (0934 hours), an endotracheal tube has been inserted. The tip is approximately 2.0 cm above the delmy. There are persistent bilateral pleural effusions. Evidence of bilateral pleural effusions (left greater than right). IMPRESSION: 1. New endotracheal tube tip approximately 2.0 cm above the delmy. 2. Little change in the cardiopulmonary status as noted above.
[2016-10-13] MEDS: D5-0.45NS 1,000 ML IV SCH (11:36)
--- NOTE | 2016-10-13 12:23 | Diagnostic Imaging Report ---
Portable chest x-ray HISTORY: Shortness of breath Compared with prior exam of 10/10/2016, improved aeration of left upper lobe. There remains opacification of the left mid and lower hemithorax consistent with a probable pleural effusion. Increased infiltrate noted through the right lung. IMPRESSION: 1. Improved aeration of the left upper lobe 2. Increased infiltrate throughout the right lung
[2016-10-13] MEDS ORDERED: Sodium Chloride 0.9% 1,000 ML IV ONE (15:45)
[2016-10-13] MEDS: Epoetin Alfa 20000 Units/mL Vial SUBQ SCH (16:24)
--- NOTE | 2016-10-13 16:34 | General Progress Note ---
Subjective - Review of Systems Service Date: 10/13/16 Subjective: Patient was seen and examined nurse was at the bedside Pt difficult to arouse not on any sedatives Objective - Results Result Diagrams: 10/13/16 04:47 10/13/16 04:47 Recent Labs: Laboratory Last Values WBC 10.9 Th/cmm (4.8-10.8) H D 10/13/16 04:47 RBC 4.38 Mil/cmm (3.80-5.20) 10/13/16 04:47 Hgb 11.8 gm/dL (11.7-16.1) D 10/13/16 04:47 Hct 35.0 % (35.0-45.0) D 10/13/16 04:47 MCV 79.9 fl (81-100) L 10/13/16 04:47 MCH 27.0 pg (27.0-31.0) 10/13/16 04:47 MCHC Differential 33.8 pg (28.0-36.0) 10/13/16 04:47 RDW 17.6 % (11.5-20.0) 10/13/16 04:47 Plt Count 188 Th/cmm (150-400) 10/13/16 04:47 MPV 8.5 fl 10/13/16 04:47 Neutrophils % 79.0 % (40.0-80.0) 10/13/16 04:47 Band Neutrophils % 1 % (0-10) 10/12/16 04:40 Lymphocytes % 9.5 % (20.0-50.0) L 10/13/16 04:47 Monocytes % 7.7 % (2.0-10.0) 10/13/16 04:47 Eosinophils % 1.9 % (0.0-5.0) 10/13/16 04:47 Basophils % 1.9 % (0.0-2.0) 10/13/16 04:47 Neutrophils (Manual) 86 % (40-80) H 10/12/16 04:40 Lymphocytes 4 % (20-50) L 10/12/16 04:40 Monocytes 8 % (2-10) 10/12/16 04:40 Eosinophils 1 % (0-5) 10/12/16 04:40 Platelet Estimate ADEQUATE (NORMAL) 10/12/16 04:40 Platelet Morphology NORMAL (NORMAL) 10/12/16 04:40 Polychromasia 1+ 10/10/16 06:47 Anisocytosis 1+ 10/12/16 04:40 Microcytosis 1+ 10/12/16 04:40 RBC Morph Micro Appear ABNORMAL (NORMAL) 10/12/16 04:40 PT 12.6 SECONDS (9.5-11.5) H 10/08/16 05:20 INR 1.25 (0.5-1.4) 10/08/16 05:20 Specimen Source Arterial 10/12/16 08:56 Sample Site Left Radial 10/12/16 08:56 pH 7.47 (7.35-7.45) H 10/12/16 08:56 pCO2 42.0 mmHg (35.0-45.0) 10/12/16 08:56 pO2 71.0 mmHg (80.0-100.0) L 10/12/16 08:56 HCO3 30.6 mmol/L (20.0-26.0) H 10/12/16 08:56 Base Excess 6.3 mmol/L (-3.0-3.0) H 10/12/16 08:56 O2 Saturation 95.0 % (92.0-100.0) 10/12/16 08:56 Will Test PASS 10/12/16 08:56 Vent Rate 12 10/12/16 08:56 Inspired O2 30 10/12/16 08:56 Tidal Volume 400 10/12/16 08:56 PEEP NA 10/11/16 12:45 Pressure (ins/psv/peep) NA 10/11/16 12:45 Critical Value PW 10/12/16 08:56 Sodium 130 mEq/L (136-145) L 10/13/16 04:47 Potassium 3.9 mEq/L (3.5-5.1) 10/13/16 04:47 Chloride 102 mEq/L (98-107) 10/13/16 04:47 Carbon Dioxide 25.7 mEq/L (21.0-31.0) 10/13/16 04:47 Anion Gap 6.2 (7.0-16.0) L 10/13/16 04:47 BUN 44 mg/dL (7-25) H 10/13/16 04:47 Creatinine 1.7 mg/dL (0.6-1.2) H 10/13/16 04:47 Est GFR ( Amer) TNP 10/13/16 04:47 Est GFR (Non-Af Amer) TNP 10/13/16 04:47 BUN/Creatinine Ratio 25.9 10/13/16 04:47 Glucose 166 mg/dL (70-105) H 10/13/16 04:47 POC Glucose 154 MG/DL (70 - 105) H 10/13/16 11:26 Hemoglobin A1c % 5.7 % (4.0-6.0) 10/03/16 20:08 Calcium 8.4 mg/dL (8.6-10.3) L 10/13/16 04:47 Phosphorus 4.4 mg/dL (2.5-5.0) 10/05/16 06:29 Magnesium 2.1 mg/dL (1.9-2.7) 10/12/16 04:40 Iron 20 ug/dL (27-139) L 10/05/16 06:29 TIBC 237 ug/dL (250-450) L 10/05/16 06:29 Iron Saturation 8 % (15-55) L 10/05/16 06:29 Unsaturated IBC 217 ug/dL (118-369) 10/05/16 06:29 Total Bilirubin 0.4 mg/dL (0.3-1.0) 10/12/16 04:40 AST 14 U/L (13-39) 10/12/16 04:40 ALT 7 U/L (7-52) 10/12/16 04:40 Alkaline Phosphatase 61 U/L (34-104) 10/12/16 04:40 Troponin I 0.01 ng/mL (0.01-0.05) 10/03/16 20:08 B-Natriuretic Peptide 1740.0 pg/mL (5.0-100.0) H 10/13/16 04:47 Total Protein 5.5 gm/dL (6.0-8.3) L 10/12/16 04:40 Albumin 2.4 gm/dL (3.7-5.3) L 10/12/16 04:40 Globulin 3.1 gm/dL 10/12/16 04:40 Albumin/Globulin Ratio 0.8 (1.0-1.8) L 10/12/16 04:40 Triglycerides 106 mg/dL (<150) 10/03/16 20:08 Cholesterol 97 mg/dL (<200) 10/03/16 20:08 LDL Cholesterol Direct 42 mg/dL (75-193) L 10/03/16 20:08 HDL Cholesterol 38 mg/dL (23-92) 10/03/16 20:08 Carcinoembryonic Ag 4.1 ng/mL (0.0-4.7) 10/10/16 06:47 TSH 14.69 uIU/ml (0.34-5.60) H 10/03/16 20:08 PTH Intact 147 pg/mL (15-65) H 10/06/16 07:20 Urine Source CLEAN C 10/05/16 10:45 Urine Color YELLOW 10/05/16 10:45 Urine Clarity SL. CLOUDY (CLEAR) 10/05/16 10:45 Urine pH 7.5 10/05/16 10:45 Ur Specific [place] 1.020 (1.005-1.030) 10/05/16 10:45 Urine Protein TRACE mg/dL (NEGATIVE) 10/05/16 10:45 Urine Glucose (UA) NEGATIVE mg/dL (NEGATIVE) 10/05/16 10:45 Urine Ketones NEGATIVE mg/dL (NEGATIVE) 10/05/16 10:45 Urine Blood TRACE (NEGATIVE) 10/05/16 10:45 Urine Nitrate NEGATIVE (NEGATIVE) 10/05/16 10:45 Urine Bilirubin NEGATIVE (NEGATIVE) 10/05/16 10:45 Urine Urobilinogen 0.2 E.U./dL (0.2 - 1.0) 10/05/16 10:45 Ur Leukocyte Esterase NEGATIVE (NEGATIVE) 10/05/16 10:45 Urine RBC 0-2 /hpf (0-5) 10/05/16 10:45 Urine WBC 0-2 /hpf (0-5) 10/05/16 10:45 Ur Epithelial Cells RARE /lpf (FEW) 10/05/16 10:45 Urine Bacteria NONE SEEN /hpf (NONE SEEN) 10/05/16 10:45 U Random Total Protein 34.0 mg/dL 10/06/16 06:00 Urine Collection Time 24 hours 10/06/16 06:00 Urine Total Volume 1850 ml 10/06/16 06:00 Urine Creatinine 23.0 mg/dl (28.0-217.0) L 10/06/16 06:00 Creat Clearance 24 Hr 18 ml/min (88.00-128.00) L 10/06/16 06:00 U Tot Protein 24h, Calc 629.0 mg/24 hr (0-165) H 10/06/16 06:00 Body Surface Area 1.47 10/06/16 06:00 Stool Occult Blood POSITIVE (NEGATIVE) 10/07/16 02:00 RPR NONREACTIVE (NONREACTIVE) 10/03/16 20:08 Blood Type AB POSITIVE 10/12/16 09:40 Antibody Screen NEGATIVE 10/12/16 09:40 Crossmatch See Detail 10/12/16 09:40 - Physical Exam Vitals and I&O: Vital Signs Temp 98.7 F 10/13/16 16:00 Pulse 68 10/13/16 16:09 Resp 17 10/13/16 16:00 BP 148/49 10/13/16 16:00 Pulse Ox 100 10/13/16 16:09 Intake & Output 10/12/16 10/13/16 10/13/16 18:59 06:59 18:59 Intake Total 50 1760 804 Output Total 3050 500 Balance 50 -1290 304 Weight (lbs) 54.431 kg Intake: Intake, IV Amount 50 100 764 D5-0.45NS 1,000 ml @ 30 714 mls/hr IV .Q24H [facility] Rx#: [id number] Piperacillin Sodium/ 50 100 50 Tazobact 2.25 gm In Sodium Chloride 0.9% 50 ml @ 100 mls/hr IV Q8HR [facility] Rx#:[id number] Oral 0 Tube Feeding 1060 40 Blood Product 500 Other 100 Output: Urine 3050 500 Other: # Bowel Movements 1 Stool Characteristics Soft Liquid Brown Active Medications: Current Medications Acetaminophen (Tylenol) 650 mg PO Q6HR PRN PRN Reason: Pain (Mild) Stop: 12/03/16 08:08 Last Admin: 10/08/16 02:40 Dose: 650 mg Acetylcysteine (Mucomyst 20%) 2 ml HHN Q4HRT [facility] Stop: 12/09/16 14:59 Last Admin: 10/13/16 16:05 Dose: 2 ml Albuterol/Ipratropium (Duoneb Neb) 3 ml HHN Q2HR PRN PRN Reason: Shortness of Breath Stop: 12/03/16 08:08 Albuterol/Ipratropium (Duoneb Neb) 3 ml HHN Q4HRT [facility] Stop: 12/09/16 14:59 Last Admin: 10/13/16 16:05 Dose: 3 ml Amlodipine Besylate (Norvasc) 5 mg PO DAILY [facility] Stop: 12/03/16 08:59 Last Admin: 10/13/16 08:38 Dose: 5 mg Atorvastatin Calcium (Lipitor) 10 mg PO HS [facility] PRN Reason: Protocol Stop: 12/03/16 20:59 Last Admin: 10/12/16 20:41 Dose: 10 mg Calcitriol (Rocaltrol) 0.25 mcg PO DAILY [facility] Stop: 12/05/16 08:59 Last Admin: 10/13/16 08:35 Dose: 0.25 mcg Carvedilol (Coreg) 25 mg PO BID [facility] Stop: 12/03/16 08:59 Last Admin: 10/13/16 08:37 Dose: 25 mg Chlorhexidine Gluconate (Peridex) 15 ml MM 0800,1999 [facility] Stop: 12/10/16 19:59 Last Admin: 10/13/16 07:58 Dose: 15 ml Docusate Sodium (Colace) 100 mg PO BID [facility] Stop: 12/03/16 08:59 Last Admin: 10/13/16 08:37 Dose: 100 mg Donepezil HCl (Aricept) 5 mg PO HS [facility] Stop: 12/03/16 20:59 Last Admin: 10/12/16 20:41 Dose: 5 mg Epoetin Usraj (Epogen) 10,000 units SUBQ MoWeFr [facility] Stop: 12/05/16 13:43 Last Admin: 10/13/16 16:24 Dose: Not Given Ferrous Sulfate (Iron) 300 mg PO BID [facility] Stop: 12/04/16 16:59 Last Admin: 10/13/16 08:37 Dose: 300 mg Folic Acid (Folate) 1 mg PO DAILY [facility] Stop: 12/05/16 08:59 Last Admin: 10/13/16 08:37 Dose: 1 mg Furosemide (Lasix) 20 mg IVP DAILY [facility] Stop: 12/09/16 17:29 Last Admin: 10/13/16 08:35 Dose: 20 mg Piperacillin Sod/Tazobactam (Sod 2.25 gm/ Sodium Chloride) 50 mls @ 100 mls/hr IV Q8HR [facility] Stop: 12/11/16 14:59 Last Infusion: 10/13/16 13:30 Dose: Infused Sodium Chloride (Nacl 0.9%) 1,000 mls @ 30 mls/hr IV .Q24H [facility] Stop: 10/14/16 15:44 Insulin Aspart (Novolog) 0 units SUBQ ACHS [facility] PRN Reason: Protocol Stop: 12/03/16 07:29 Last Admin: 10/13/16 16:25 Dose: 2 unit Lactobacillus Rhamnosus (Culturelle) 1 each PO DAILY [facility] Stop: 12/12/16 08:59 Last Admin: 10/13/16 08:39 Dose: 1 each Levothyroxine Sodium (Synthroid) 0.05 mg PO QDAC [facility] Stop: 12/04/16 07:29 Last Admin: 10/13/16 06:47 Dose: 0.05 mg Lorazepam (Ativan) 0.5 mg IVP Q4HR PRN; Protocol PRN Reason: Agitation Stop: 12/10/16 12:45 Last Admin: 10/12/16 01:33 Dose: 0.5 mg Miscellaneous (Probiotic Screen) 1 ea MC PRN PRN PRN Reason: PROTOCOL Stop: 12/11/16 15:45 Multivitamins/Vitamin C (Theragran) 1 tab PO DAILY [facility] Stop: 12/03/16 08:59 Last Admin: 10/13/16 08:37 Dose: 1 tab Pantoprazole Sodium (Protonix) 40 mg NG DAILY [facility] Stop: 12/03/16 08:59 Last Admin: 10/13/16 08:37 Dose: 40 mg Senna (Senna) 8.6 mg PO HS [facility] Stop: 12/03/16 20:59 Last Admin: 10/12/16 20:41 Dose: 8.6 mg Cardiovascular: Normal S1, Normal S2 Lungs: Other (rales little better) Abdomen: Soft - Procedures Procedures: Procedures Procedure Code Date COLONOSCOPY AND BIOPSY 02128 10/04/16 EGD DIAGNOSTIC BRUSH WASH 72420 10/04/16 EXCISION OF LARGE INTESTINE, ENDO, DIAGN [id number] 10/04/16 INSERT EMERGENCY AIRWAY 33719 10/04/16 INSERTION OF ENDOTRACHEAL AIRWAY INTO TRACHEA, VIA OPENING [id number] 10/04/16 INSPECTION OF UPPER INTESTINAL TRACT, ENDO [id number] 10/04/16 RESPIRATORY VENTILATION, 24-96 CONSECUTIVE HOURS [id number] 10/04/16 VENT MGMT INPAT INIT DAY 10/04/16 VENT MGMT INPAT SUBQ DAY 10/04/16 Assessment/Plan - Assessment Assessment: Altered mental state ? etiology ? worsening dementia ? sepis ? respiratory failure r/o acute neuro events Pnemonia CHF CKD HTN Hypothyroidism Hyperlipidemia Diabetes Old CVA Psych disorder Debitly Positive stool OB Colon stricture - Plan Plan: CT Head w/o contrast ordered. Neurology consulted Continue Zosyn Vent support HH better post PRBC Follow up labs in am ECHO EF 40% Cardiology on board. Continue Lasix Monitor vitals and I/O Monitor pulmonary and renal function Pulmonary and Neprhology on board Tube feeding Follow up lab and chest xray in am Plan of care discussed with nursing staff
[2016-10-13] MEDS: Atorvastatin Calcium 10 MG TAB PO SCH (21:10)
--- NOTE | 2016-10-14 01:04 | Progress Notes ---
Case was discussed with staff of the patient, reviewed records. The patient continues to be intubated in ICU. Continues to be sedated. I discussed with the staff. She has an NG tube for feeding ____ withhold the Seroquel for now. She has been getting Ativan as needed when she gets agitated and Dr. Payne will follow up with her. Thank you very much for allowing me to participate in the care of this most interesting lady. JOB# [id number]
[2016-10-14] MEDS: Albuterol/Ipratropium Neb 3 ML AERS HHN SCH ×6 (03:34→22:33)
[2016-10-14 05:20] LABS: % BASOPHILS 0.2 % (0.0-2.0); % EOSINOPHILS 2.1 % (0.0-5.0); % LYMPHOCYTES 12.5 % (20.0-50.0); % MONOCYTES 8.7 % (2.0-10.0); % NEUTROPHILS 76.5 % (40.0-80.0); HEMATOCRIT 36.7 % (35.0-45.0); MEAN CELL VOLUME 80.3 fl (81-100); MEAN CORPUSCULAR HEMOGLOBIN 26.4 pg (27.0-31.0); MEAN CORPUSCULAR HGB CONC 32.9 pg (28.0-36.0); MEAN PLATELET VOLUME 8.5 fl; NEUTROPHILE ABSOLUTE 7.9 Th/cmm (1.8-8.0); PLATELET COUNT 218 Th/cmm (150-400); RED BLOOD COUNT 4.57 Mil/cmm (3.80-5.20); RED CELL DISTRIBUTION WIDTH 18.3 % (11.5-20.0); WHITE BLOOD COUNT 10.3 Th/cmm (4.8-10.8)
[2016-10-14 05:34] LABS: ALB/GLOB RATIO 0.7 (1.0-1.8); ALKALINE PHOSPHATASE 61 U/L (34-104); ANION GAP 6.4 (7.0-16.0); BILIRUBIN,TOTAL 0.6 mg/dL (0.3-1.0); BUN - UREA NITROGEN 47 mg/dL (7-25); BUN/CREATININE RATIO 26.1; CALCIUM SERUM 8.3 mg/dL (8.6-10.3); CARBON DIOXIDE 30.4 mEq/L (21.0-31.0); CHLORIDE 100 mEq/L (98-107); CREATININE - SERUM 1.8 mg/dL (0.6-1.2); GLUCOSE 192 mg/dL (70-105); POTASSIUM SERUM 3.8 mEq/L (3.5-5.1); SGOT 24 U/L (13-39); SGPT/ALT 14 U/L (7-52); SODIUM SERUM 133 mEq/L (136-145)
[2016-10-14] MEDS: INSULIN ASPART, RECOMBINANT 100 UNITS/ML SUBQ SCH ×4 (07:15→21:12)
[2016-10-14] MEDS: Levothyroxine 0.05 Mg Tab PO SCH (07:55)
[2016-10-14] MEDS: Chlorhexidine Gluconate 0.12% 15mL Mouthwash MM SCH ×2 (08:00→20:30)
[2016-10-14] MEDS: Pantoprazole 40 mg/Packet NG SCH (09:26)
[2016-10-14] MEDS: Multivitamin Tab PO SCH (09:29)
[2016-10-14] MEDS: Lactobacillus Rhamnosus 10 Billion CFU Capsule PO SCH (09:29)
[2016-10-14] MEDS: Ferrous Sulfate 300 MG/5 ML UDC PO SCH ×2 (09:32→16:53)
--- NOTE | 2016-10-14 11:46 | Diagnostic Imaging Report ---
CT scan of the brain without intravenous contrast HISTORY: Stroke, CVA Total DLP equals 570 CTDI equals 31.4 Axial sections were obtained from the base of the skull to the vertex. The exam is compared with the prior study of October 04, 2016. There is enlargement of ventricular system along with enlargement cerebral sulci is recommended cisterns reflecting atrophy. There is extensive hypodensity noted through the right temporal and occipital white matter regions with volume loss. Findings consistent with encephalomalacia probably related to an old infarct. No acute parenchymal abnormalities. No intracerebral hemorrhage. Generalized hypodensity seen throughout the supratentorial periventricular white matter regions without mass effect. This is unchanged. Again, the findings may be associated with chronic small vessel ischemic disease. No extra-axial masses or abnormal fluid collections. There is severe dense atherosclerotic vascular calcification noted in the region of the vertebral and basilar arteries at the base of the skull. IMPRESSION: 1. No acute abnormalities 2. Extensive encephalomalacia within the right temporal and occipital regions probably related to an old infarct. 3. Cerebral atrophy 4. Supratentorial white matter changes that may be associated with chronic small vessel ischemic disease 5. Severe extensive atherosclerotic vascular changes in the region of the vertebral and basilar arteries at the base of the skull.
--- NOTE | 2016-10-14 12:41 | General Progress Note ---
Subjective - Review of Systems Service Date: 10/14/16 Subjective: Patient was seen and examined nurse was at the bedside pt still poorly responsive CT Brain no acute findings Neurology evaluated pt this am Objective - Results Result Diagrams: 10/14/16 04:33 10/14/16 04:33 Recent Labs: Laboratory Last Values WBC 10.3 Th/cmm (4.8-10.8) 10/14/16 04:33 RBC 4.57 Mil/cmm (3.80-5.20) 10/14/16 04:33 Hgb 12.0 gm/dL (11.7-16.1) 10/14/16 04:33 Hct 36.7 % (35.0-45.0) 10/14/16 04:33 MCV 80.3 fl (81-100) L 10/14/16 04:33 MCH 26.4 pg (27.0-31.0) L 10/14/16 04:33 MCHC Differential 32.9 pg (28.0-36.0) 10/14/16 04:33 RDW 18.3 % (11.5-20.0) 10/14/16 04:33 Plt Count 218 Th/cmm (150-400) 10/14/16 04:33 MPV 8.5 fl 10/14/16 04:33 Neutrophils % 76.5 % (40.0-80.0) 10/14/16 04:33 Band Neutrophils % 1 % (0-10) 10/12/16 04:40 Lymphocytes % 12.5 % (20.0-50.0) L 10/14/16 04:33 Monocytes % 8.7 % (2.0-10.0) 10/14/16 04:33 Eosinophils % 2.1 % (0.0-5.0) 10/14/16 04:33 Basophils % 0.2 % (0.0-2.0) 10/14/16 04:33 Neutrophils (Manual) 86 % (40-80) H 10/12/16 04:40 Lymphocytes 4 % (20-50) L 10/12/16 04:40 Monocytes 8 % (2-10) 10/12/16 04:40 Eosinophils 1 % (0-5) 10/12/16 04:40 Platelet Estimate ADEQUATE (NORMAL) 10/12/16 04:40 Platelet Morphology NORMAL (NORMAL) 10/12/16 04:40 Polychromasia 1+ 10/10/16 06:47 Anisocytosis 1+ 10/12/16 04:40 Microcytosis 1+ 10/12/16 04:40 RBC Morph Micro Appear ABNORMAL (NORMAL) 10/12/16 04:40 PT 12.6 SECONDS (9.5-11.5) H 10/08/16 05:20 INR 1.25 (0.5-1.4) 10/08/16 05:20 Specimen Source Arterial 10/12/16 08:56 Sample Site Left Radial 10/12/16 08:56 pH 7.47 (7.35-7.45) H 10/12/16 08:56 pCO2 42.0 mmHg (35.0-45.0) 10/12/16 08:56 pO2 71.0 mmHg (80.0-100.0) L 10/12/16 08:56 HCO3 30.6 mmol/L (20.0-26.0) H 10/12/16 08:56 Base Excess 6.3 mmol/L (-3.0-3.0) H 10/12/16 08:56 O2 Saturation 95.0 % (92.0-100.0) 10/12/16 08:56 Will Test PASS 10/12/16 08:56 Vent Rate 12 10/12/16 08:56 Inspired O2 30 10/12/16 08:56 Tidal Volume 400 10/12/16 08:56 PEEP NA 10/11/16 12:45 Pressure (ins/psv/peep) NA 10/11/16 12:45 Critical Value PW 10/12/16 08:56 Sodium 133 mEq/L (136-145) L 10/14/16 04:33 Potassium 3.8 mEq/L (3.5-5.1) 10/14/16 04:33 Chloride 100 mEq/L (98-107) 10/14/16 04:33 Carbon Dioxide 30.4 mEq/L (21.0-31.0) 10/14/16 04:33 Anion Gap 6.4 (7.0-16.0) L 10/14/16 04:33 BUN 47 mg/dL (7-25) H 10/14/16 04:33 Creatinine 1.8 mg/dL (0.6-1.2) H 10/14/16 04:33 Est GFR ( Amer) TNP 10/14/16 04:33 Est GFR (Non-Af Amer) TNP 10/14/16 04:33 BUN/Creatinine Ratio 26.1 10/14/16 04:33 Glucose 192 mg/dL (70-105) H 10/14/16 04:33 POC Glucose 109 MG/DL (70 - 105) H 10/14/16 11:34 Hemoglobin A1c % 5.7 % (4.0-6.0) 10/03/16 20:08 Calcium 8.3 mg/dL (8.6-10.3) L 10/14/16 04:33 Phosphorus 4.4 mg/dL (2.5-5.0) 10/05/16 06:29 Magnesium 2.1 mg/dL (1.9-2.7) 10/12/16 04:40 Iron 20 ug/dL (27-139) L 10/05/16 06:29 TIBC 237 ug/dL (250-450) L 10/05/16 06:29 Iron Saturation 8 % (15-55) L 10/05/16 06:29 Unsaturated IBC 217 ug/dL (118-369) 10/05/16 06:29 Total Bilirubin 0.6 mg/dL (0.3-1.0) 10/14/16 04:33 AST 24 U/L (13-39) 10/14/16 04:33 ALT 14 U/L (7-52) 10/14/16 04:33 Alkaline Phosphatase 61 U/L (34-104) 10/14/16 04:33 Troponin I 0.01 ng/mL (0.01-0.05) 10/03/16 20:08 B-Natriuretic Peptide 1480.0 pg/mL (5.0-100.0) H 10/14/16 04:33 Total Protein 5.9 gm/dL (6.0-8.3) L 10/14/16 04:33 Albumin 2.5 gm/dL (3.7-5.3) L 10/14/16 04:33 Globulin 3.4 gm/dL 10/14/16 04:33 Albumin/Globulin Ratio 0.7 (1.0-1.8) L 10/14/16 04:33 Triglycerides 106 mg/dL (<150) 10/03/16 20:08 Cholesterol 97 mg/dL (<200) 10/03/16 20:08 LDL Cholesterol Direct 42 mg/dL (75-193) L 10/03/16 20:08 HDL Cholesterol 38 mg/dL (23-92) 10/03/16 20:08 Carcinoembryonic Ag 4.1 ng/mL (0.0-4.7) 10/10/16 06:47 TSH 14.69 uIU/ml (0.34-5.60) H 10/03/16 20:08 PTH Intact 147 pg/mL (15-65) H 10/06/16 07:20 Urine Source CLEAN C 10/05/16 10:45 Urine Color YELLOW 10/05/16 10:45 Urine Clarity SL. CLOUDY (CLEAR) 10/05/16 10:45 Urine pH 7.5 10/05/16 10:45 Ur Specific [place] 1.020 (1.005-1.030) 10/05/16 10:45 Urine Protein TRACE mg/dL (NEGATIVE) 10/05/16 10:45 Urine Glucose (UA) NEGATIVE mg/dL (NEGATIVE) 10/05/16 10:45 Urine Ketones NEGATIVE mg/dL (NEGATIVE) 10/05/16 10:45 Urine Blood TRACE (NEGATIVE) 10/05/16 10:45 Urine Nitrate NEGATIVE (NEGATIVE) 10/05/16 10:45 Urine Bilirubin NEGATIVE (NEGATIVE) 10/05/16 10:45 Urine Urobilinogen 0.2 E.U./dL (0.2 - 1.0) 10/05/16 10:45 Ur Leukocyte Esterase NEGATIVE (NEGATIVE) 10/05/16 10:45 Urine RBC 0-2 /hpf (0-5) 10/05/16 10:45 Urine WBC 0-2 /hpf (0-5) 10/05/16 10:45 Ur Epithelial Cells RARE /lpf (FEW) 10/05/16 10:45 Urine Bacteria NONE SEEN /hpf (NONE SEEN) 10/05/16 10:45 U Random Total Protein 34.0 mg/dL 10/06/16 06:00 Urine Collection Time 24 hours 10/06/16 06:00 Urine Total Volume 1850 ml 10/06/16 06:00 Urine Creatinine 23.0 mg/dl (28.0-217.0) L 10/06/16 06:00 Creat Clearance 24 Hr 18 ml/min (88.00-128.00) L 10/06/16 06:00 U Tot Protein 24h, Calc 629.0 mg/24 hr (0-165) H 10/06/16 06:00 Body Surface Area 1.47 10/06/16 06:00 Stool Occult Blood POSITIVE (NEGATIVE) 10/07/16 02:00 RPR NONREACTIVE (NONREACTIVE) 10/03/16 20:08 Blood Type AB POSITIVE 10/12/16 09:40 Antibody Screen NEGATIVE 10/12/16 09:40 Crossmatch See Detail 10/12/16 09:40 - Physical Exam Vitals and I&O: Vital Signs Temp 98 F 10/14/16 10:00 Pulse 62 10/14/16 12:29 Resp 15 10/14/16 10:06 BP 131/54 10/14/16 10:00 Pulse Ox 100 10/14/16 12:29 Intake & Output 10/13/16 10/14/16 10/14/16 18:59 06:59 18:59 Intake Total 904 700 40 Output Total 2100 1800 700 Balance -1196 -1100 -660 Weight (lbs) 53.252 kg Intake: Intake, IV Amount 764 100 D5-0.45NS 1,000 ml @ 30 714 mls/hr IV .Q24H [facility] Rx#: [id number] Piperacillin Sodium/ 50 100 Tazobact 2.25 gm In Sodium Chloride 0.9% 50 ml @ 100 mls/hr IV Q8HR [facility] Rx#:[id number] Oral 0 Tube Feeding 40 480 40 Other 100 120 Output: Urine 2100 1800 700 Stool 0 Other: # Bowel Movements 1 Stool Characteristics Soft Soft Liquid Liquid Brown Brown Active Medications: Current Medications Acetaminophen (Tylenol) 650 mg PO Q6HR PRN PRN Reason: Pain (Mild) Stop: 12/03/16 08:08 Last Admin: 10/08/16 02:40 Dose: 650 mg Acetylcysteine (Mucomyst 20%) 2 ml HHN Q4HRT [facility] Stop: 12/09/16 14:59 Last Admin: 10/14/16 12:25 Dose: 2 ml Albuterol/Ipratropium (Duoneb Neb) 3 ml HHN Q2HR PRN PRN Reason: Shortness of Breath Stop: 12/03/16 08:08 Albuterol/Ipratropium (Duoneb Neb) 3 ml HHN Q4HRT [facility] Stop: 12/09/16 14:59 Last Admin: 10/14/16 12:25 Dose: 3 ml Amlodipine Besylate (Norvasc) 5 mg PO DAILY [facility] Stop: 12/03/16 08:59 Last Admin: 10/14/16 09:29 Dose: 5 mg Atorvastatin Calcium (Lipitor) 10 mg PO HS [facility] PRN Reason: Protocol Stop: 12/03/16 20:59 Last Admin: 10/13/16 21:10 Dose: 10 mg Calcitriol (Rocaltrol) 0.25 mcg PO DAILY [facility] Stop: 12/05/16 08:59 Last Admin: 10/14/16 09:26 Dose: 0.25 mcg Carvedilol (Coreg) 25 mg PO BID [facility] Stop: 12/03/16 08:59 Last Admin: 10/14/16 09:27 Dose: 25 mg Chlorhexidine Gluconate (Peridex) 15 ml MM 0800,1999 [facility] Stop: 12/10/16 19:59 Last Admin: 10/14/16 08:00 Dose: 15 ml Docusate Sodium (Colace) 100 mg PO BID [facility] Stop: 12/03/16 08:59 Last Admin: 10/14/16 09:29 Dose: 100 mg Donepezil HCl (Aricept) 5 mg PO HS [facility] Stop: 12/03/16 20:59 Last Admin: 10/13/16 21:10 Dose: 5 mg Ferrous Sulfate (Iron) 300 mg PO BID [facility] Stop: 12/04/16 16:59 Last Admin: 10/14/16 09:32 Dose: 300 mg Folic Acid (Folate) 1 mg PO DAILY [facility] Stop: 12/05/16 08:59 Last Admin: 10/14/16 09:29 Dose: 1 mg Furosemide (Lasix) 20 mg IVP DAILY [facility] Stop: 12/09/16 17:29 Last Admin: 10/14/16 09:26 Dose: 20 mg Piperacillin Sod/Tazobactam (Sod 2.25 gm/ Sodium Chloride) 50 mls @ 100 mls/hr IV Q8HR [facility] Stop: 12/11/16 14:59 Last Admin: 10/14/16 12:06 Dose: 100 mls/hr Sodium Chloride (Nacl 0.9%) 1,000 mls @ 30 mls/hr IV .Q24H ONE Stop: 10/14/16 15:44 Last Admin: 10/13/16 15:45 Dose: 30 mls/hr Insulin Aspart (Novolog) 0 units SUBQ ACHS [facility] PRN Reason: Protocol Stop: 12/03/16 07:29 Last Admin: 10/14/16 11:48 Dose: Not Given Lactobacillus Rhamnosus (Culturelle) 1 each PO DAILY [facility] Stop: 12/12/16 08:59 Last Admin: 10/14/16 09:29 Dose: 1 each Levothyroxine Sodium (Synthroid) 0.05 mg PO QDAC [facility] Stop: 12/04/16 07:29 Last Admin: 10/14/16 07:55 Dose: 0.05 mg Lorazepam (Ativan) 0.5 mg IVP Q4HR PRN; Protocol PRN Reason: Agitation Stop: 12/10/16 12:45 Last Admin: 10/14/16 10:45 Dose: 0.5 mg Miscellaneous (Probiotic Screen) 1 ea MC PRN PRN PRN Reason: PROTOCOL Stop: 12/11/16 15:45 Multivitamins/Vitamin C (Theragran) 1 tab PO DAILY [facility] Stop: 12/03/16 08:59 Last Admin: 10/14/16 09:29 Dose: 1 tab Pantoprazole Sodium (Protonix) 40 mg NG DAILY [facility] Stop: 12/03/16 08:59 Last Admin: 10/14/16 09:26 Dose: 40 mg Senna (Senna) 8.6 mg PO HS [facility] Stop: 12/03/16 20:59 Last Admin: 10/13/16 21:00 Dose: Not Given Cardiovascular: Normal S1, Normal S2 Lungs: Other (rales) Abdomen: Soft, no Tender, no Distended - Procedures Procedures: Procedures Procedure Code Date COLONOSCOPY AND BIOPSY 74566 10/04/16 EGD DIAGNOSTIC BRUSH WASH 86201 10/04/16 EXCISION OF LARGE INTESTINE, ENDO, DIAGN [id number] 10/04/16 INSERT EMERGENCY AIRWAY 17112 10/04/16 INSERTION OF ENDOTRACHEAL AIRWAY INTO TRACHEA, VIA OPENING [id number] 10/04/16 INSPECTION OF UPPER INTESTINAL TRACT, ENDO [id number] 10/04/16 RESPIRATORY VENTILATION, 24-96 CONSECUTIVE HOURS [id number] 10/04/16 VENT MGMT INPAT INIT DAY 10/04/16 VENT MGMT INPAT SUBQ DAY 10/04/16 Assessment/Plan - Assessment Assessment: Altered mental state ? etiology ? worsening dementia ? sepis ? respiratory failure r/o acute neuro events Pnemonia CHF CKD HTN Hypothyroidism Hyperlipidemia Diabetes Old CVA Psych disorder Debitly Positive stool OB Colon stricture - Plan Plan: CT Head w/o contrast no acute findings Neurology evaluated the pt Continue Zosyn Vent support HH better post PRBC Follow up labs in am ECHO EF 40% Cardiology on board. Continue Lasix Monitor vitals and I/O Monitor pulmonary and renal function Pulmonary and Neprhology on board Tube feeding Follow up lab and chest xray in am Plan of care discussed with nursing staff Daughter Jasmyne was updated on pt's condition and plan of care in details She understood well
--- NOTE | 2016-10-14 14:31 | History & Physical ---
HISTORY OF PRESENT ILLNESS: The patient is a 76-year-old admitted on 10/04/2016. The patient has altered level. The patient with previous history of stroke, hypertension. The patient had noted to be not communicating well, altered. [place] that the patient most likely has sepsis. The patient then had respiratory distress. The patient now intubated. Not responding. No seizures witnessed. PAST MEDICAL HISTORY: 1. Previous stroke. 2. Hypertension. 3. Hypothyroidism. 4. Hyperlipidemia. 5. Diabetes. 6. Advanced dementia. 7. Psychiatric illness. 8. Chronic kidney disease. MEDICATIONS: Per reconciliation. REVIEW OF SYSTEMS: Not obtainable. PHYSICAL EXAMINATION: VITAL SIGNS: Temperature 99.1, blood pressure 140/58, pulse is 70. NECK: Supple. No bruits. HEART: Sounds S1, S2. LUNGS: Clear. ABDOMEN: Soft. NEUROLOGIC: The patient is intubated on the vent. The patient will open eyes ____ to painful stimulation. There is some withdrawal of the legs. The patient has a left below knee amputation. The patient has some withdrawal of the arms. The patient will try to lift the head up a little bit. The patient's pupil, right is about 3.5 and left is 2.5, very slow reaction. The patient has had previous cataract surgery on the right side. The patient's response to pain as above. Reflexes about -1 in upper extremities, left below knee amputation. Right, no knee reflex obtainable. No ankle reflex. IMPRESSION: 1. Encephalopathy. 2. Pneumonia. 3. Dementia. 4. Hypothyroidism. 5. Hyperlipidemia. 6. Diabetes, previous stroke. 7. Respiratory failure. The patient at the moment will have CT scan of the head. Continue present management. JOB# [id number]
[2016-10-14] MEDS ORDERED: Sodium Chloride 0.9% 1,000 ML IV ONE (17:01)
[2016-10-14] MEDS: Atorvastatin Calcium 10 MG TAB PO SCH (21:11)
[2016-10-15] MEDS: Albuterol/Ipratropium Neb 3 ML AERS HHN SCH ×6 (02:38→23:38)
[2016-10-15 05:57] LABS: ANION GAP 10.8 (7.0-16.0); BUN - UREA NITROGEN 45 mg/dL (7-25); BUN/CREATININE RATIO 26.5; CALCIUM SERUM 8.4 mg/dL (8.6-10.3); CARBON DIOXIDE 27.8 mEq/L (21.0-31.0); CHLORIDE 98 mEq/L (98-107); CREATININE - SERUM 1.7 mg/dL (0.6-1.2); GLUCOSE 255 mg/dL (70-105); HEMATOCRIT 35.6 % (35.0-45.0); HEMOGLOBIN 11.6 gm/dL (11.7-16.1); MEAN CELL VOLUME 78.8 fl (81-100); MEAN CORPUSCULAR HEMOGLOBIN 25.7 pg (27.0-31.0); MEAN CORPUSCULAR HGB CONC 32.6 pg (28.0-36.0); MEAN PLATELET VOLUME 8.3 fl; PLATELET COUNT 243 Th/cmm (150-400); POTASSIUM SERUM 4.6 mEq/L (3.5-5.1); RED BLOOD COUNT 4.53 Mil/cmm (3.80-5.20); RED CELL DISTRIBUTION WIDTH 18.1 % (11.5-20.0); SODIUM SERUM 132 mEq/L (136-145); WHITE BLOOD COUNT 10.4 Th/cmm (4.8-10.8)
[2016-10-15] MEDS: INSULIN ASPART, RECOMBINANT 100 UNITS/ML SUBQ SCH ×4 (06:46→21:00)
[2016-10-15] MEDS: Levothyroxine 0.05 Mg Tab PO SCH (07:26)
[2016-10-15] MEDS: Chlorhexidine Gluconate 0.12% 15mL Mouthwash MM SCH ×2 (08:00→20:57)
[2016-10-15 08:13] LABS: EOSINOPHIL 3 % (0-5); MICROCYTOSIS 1+; NEUTROPHILS 66 % (40-80); PLATELET ESTIMATE ADEQUATE (NORMAL); PLATELET MORPHOLOGY GIANT PLATELETS SEEN (NORMAL); TOTAL CELLS COUNTED 100
[2016-10-15] MEDS: Lactobacillus Rhamnosus 10 Billion CFU Capsule PO SCH (09:48)
[2016-10-15] MEDS: Ferrous Sulfate 300 MG/5 ML UDC PO SCH ×2 (09:48→16:35)
[2016-10-15] MEDS: Pantoprazole 40 mg/Packet NG SCH (09:48)
[2016-10-15] MEDS: Multivitamin Tab PO SCH (09:48)
[2016-10-15 10:14] LABS: ABG SOURCE Arterial; BE(B) 13.7 mmol/L (-3.0-3.0); FIO2 30; HCO3 37.6 mmol/L (20.0-26.0); MECH RATE 12; MECH VT 400; pH 7.55 (7.35-7.45)
--- NOTE | 2016-10-15 11:04 | Diagnostic Imaging Report ---
Portable chest x-ray HISTORY: Shortness of breath Compared to prior exam of 10/13/2016, and persistent yet decreased bilateral infiltrates. Findings suggest changes associated with decreased pulmonary edema. An endotracheal tube tip is approximately 1.0 cm above the delmy. IMPRESSION: 1. Persistent yet decreased bilateral infiltrates suggesting decreased pulmonary edema.
[2016-10-15] MEDS: Atorvastatin Calcium 10 MG TAB PO SCH (20:57)
--- NOTE | 2016-10-15 21:14 | General Progress Note ---
Subjective - Review of Systems Service Date: 10/15/16 Subjective: Patient was seen and examined daughter and pts nurse was at the bedside during evaluation. Pt seems more awake but still difficult to communicate Objective - Results Result Diagrams: 10/15/16 05:15 10/15/16 05:15 Recent Labs: Laboratory Last Values WBC 10.4 Th/cmm (4.8-10.8) 10/15/16 05:15 RBC 4.53 Mil/cmm (3.80-5.20) 10/15/16 05:15 Hgb 11.6 gm/dL (11.7-16.1) L 10/15/16 05:15 Hct 35.6 % (35.0-45.0) 10/15/16 05:15 MCV 78.8 fl (81-100) L 10/15/16 05:15 MCH 25.7 pg (27.0-31.0) L 10/15/16 05:15 MCHC Differential 32.6 pg (28.0-36.0) 10/15/16 05:15 RDW 18.1 % (11.5-20.0) 10/15/16 05:15 Plt Count 243 Th/cmm (150-400) 10/15/16 05:15 MPV 8.3 fl 10/15/16 05:15 Neutrophils % 76.5 % (40.0-80.0) 10/14/16 04:33 Band Neutrophils % 1 % (0-10) 10/12/16 04:40 Lymphocytes % 12.5 % (20.0-50.0) L 10/14/16 04:33 Monocytes % 8.7 % (2.0-10.0) 10/14/16 04:33 Eosinophils % 2.1 % (0.0-5.0) 10/14/16 04:33 Basophils % 0.2 % (0.0-2.0) 10/14/16 04:33 Neutrophils (Manual) 66 % (40-80) 10/15/16 05:15 Lymphocytes 20 % (20-50) 10/15/16 05:15 Monocytes 11 % (2-10) H 10/15/16 05:15 Eosinophils 3 % (0-5) 10/15/16 05:15 Platelet Estimate ADEQUATE (NORMAL) 10/15/16 05:15 Platelet Morphology GIANT PLATELETS SEEN (NORMAL) 10/15/16 05:15 Polychromasia 1+ 10/10/16 06:47 Anisocytosis 1+ 10/12/16 04:40 Microcytosis 1+ 10/15/16 05:15 RBC Morph Micro Appear ABNORMAL (NORMAL) 10/15/16 05:15 PT 12.6 SECONDS (9.5-11.5) H 10/08/16 05:20 INR 1.25 (0.5-1.4) 10/08/16 05:20 Specimen Source Arterial 10/15/16 09:50 Sample Site RB 10/15/16 09:50 pH 7.55 (7.35-7.45) H 10/15/16 09:50 pCO2 43.0 mmHg (35.0-45.0) 10/15/16 09:50 pO2 74.0 mmHg (80.0-100.0) L 10/15/16 09:50 HCO3 37.6 mmol/L (20.0-26.0) H 10/15/16 09:50 Base Excess 13.7 mmol/L (-3.0-3.0) H 10/15/16 09:50 O2 Saturation 96.0 % (92.0-100.0) 10/15/16 09:50 Will Test NA 10/15/16 09:50 Vent Rate 12 10/15/16 09:50 Inspired O2 30 10/15/16 09:50 Tidal Volume 400 10/15/16 09:50 PEEP NA 10/15/16 09:50 Pressure (ins/psv/peep) NA 10/15/16 09:50 Critical Value E.PRABHAKAR 10/15/16 09:50 Sodium 132 mEq/L (136-145) L 10/15/16 05:15 Potassium 4.6 mEq/L (3.5-5.1) 10/15/16 05:15 Chloride 98 mEq/L (98-107) 10/15/16 05:15 Carbon Dioxide 27.8 mEq/L (21.0-31.0) 10/15/16 05:15 Anion Gap 10.8 (7.0-16.0) 10/15/16 05:15 BUN 45 mg/dL (7-25) H 10/15/16 05:15 Creatinine 1.7 mg/dL (0.6-1.2) H 10/15/16 05:15 Est GFR ( Amer) TNP 10/15/16 05:15 Est GFR (Non-Af Amer) TNP 10/15/16 05:15 BUN/Creatinine Ratio 26.5 10/15/16 05:15 Glucose 255 mg/dL (70-105) H 10/15/16 05:15 POC Glucose 145 MG/DL (70 - 105) H 10/15/16 20:53 Hemoglobin A1c % 5.7 % (4.0-6.0) 10/03/16 20:08 Calcium 8.4 mg/dL (8.6-10.3) L 10/15/16 05:15 Phosphorus 4.4 mg/dL (2.5-5.0) 10/05/16 06:29 Magnesium 2.1 mg/dL (1.9-2.7) 10/12/16 04:40 Iron 20 ug/dL (27-139) L 10/05/16 06:29 TIBC 237 ug/dL (250-450) L 10/05/16 06:29 Iron Saturation 8 % (15-55) L 10/05/16 06:29 Unsaturated IBC 217 ug/dL (118-369) 10/05/16 06:29 Total Bilirubin 0.6 mg/dL (0.3-1.0) 10/14/16 04:33 AST 24 U/L (13-39) 10/14/16 04:33 ALT 14 U/L (7-52) 10/14/16 04:33 Alkaline Phosphatase 61 U/L (34-104) 10/14/16 04:33 Troponin I 0.01 ng/mL (0.01-0.05) 10/03/16 20:08 B-Natriuretic Peptide 2130.0 pg/mL (5.0-100.0) H 10/15/16 05:15 Total Protein 5.9 gm/dL (6.0-8.3) L 10/14/16 04:33 Albumin 2.5 gm/dL (3.7-5.3) L 10/14/16 04:33 Globulin 3.4 gm/dL 10/14/16 04:33 Albumin/Globulin Ratio 0.7 (1.0-1.8) L 10/14/16 04:33 Triglycerides 106 mg/dL (<150) 10/03/16 20:08 Cholesterol 97 mg/dL (<200) 10/03/16 20:08 LDL Cholesterol Direct 42 mg/dL (75-193) L 10/03/16 20:08 HDL Cholesterol 38 mg/dL (23-92) 10/03/16 20:08 Carcinoembryonic Ag 4.1 ng/mL (0.0-4.7) 10/10/16 06:47 TSH 14.69 uIU/ml (0.34-5.60) H 10/03/16 20:08 PTH Intact 147 pg/mL (15-65) H 10/06/16 07:20 Urine Source CLEAN C 10/05/16 10:45 Urine Color YELLOW 10/05/16 10:45 Urine Clarity SL. CLOUDY (CLEAR) 10/05/16 10:45 Urine pH 7.5 10/05/16 10:45 Ur Specific [place] 1.020 (1.005-1.030) 10/05/16 10:45 Urine Protein TRACE mg/dL (NEGATIVE) 10/05/16 10:45 Urine Glucose (UA) NEGATIVE mg/dL (NEGATIVE) 10/05/16 10:45 Urine Ketones NEGATIVE mg/dL (NEGATIVE) 10/05/16 10:45 Urine Blood TRACE (NEGATIVE) 10/05/16 10:45 Urine Nitrate NEGATIVE (NEGATIVE) 10/05/16 10:45 Urine Bilirubin NEGATIVE (NEGATIVE) 10/05/16 10:45 Urine Urobilinogen 0.2 E.U./dL (0.2 - 1.0) 10/05/16 10:45 Ur Leukocyte Esterase NEGATIVE (NEGATIVE) 10/05/16 10:45 Urine RBC 0-2 /hpf (0-5) 10/05/16 10:45 Urine WBC 0-2 /hpf (0-5) 10/05/16 10:45 Ur Epithelial Cells RARE /lpf (FEW) 10/05/16 10:45 Urine Bacteria NONE SEEN /hpf (NONE SEEN) 10/05/16 10:45 U Random Total Protein 34.0 mg/dL 10/06/16 06:00 Urine Collection Time 24 hours 10/06/16 06:00 Urine Total Volume 1850 ml 10/06/16 06:00 Urine Creatinine 23.0 mg/dl (28.0-217.0) L 10/06/16 06:00 Creat Clearance 24 Hr 18 ml/min (88.00-128.00) L 10/06/16 06:00 U Tot Protein 24h, Calc 629.0 mg/24 hr (0-165) H 10/06/16 06:00 Body Surface Area 1.47 10/06/16 06:00 Stool Occult Blood POSITIVE (NEGATIVE) 10/07/16 02:00 RPR NONREACTIVE (NONREACTIVE) 10/03/16 20:08 Blood Type AB POSITIVE 10/12/16 09:40 Antibody Screen NEGATIVE 10/12/16 09:40 Crossmatch See Detail 10/12/16 09:40 - Physical Exam Vitals and I&O: Vital Signs Temp 98.8 F 10/15/16 20:00 Pulse 69 10/15/16 21:02 Resp 15 10/15/16 20:00 BP 116/42 10/15/16 20:00 Pulse Ox 100 10/15/16 21:02 Intake & Output 10/15/16 10/15/16 10/16/16 06:59 18:59 06:59 Intake Total 730 90 Output Total 1600 300 Balance -870 -210 Weight (lbs) 78.925 kg Intake: Intake, IV Amount 100 50 Piperacillin Sodium/ 100 50 Tazobact 2.25 gm In Sodium Chloride 0.9% 50 ml @ 100 mls/hr IV Q8HR [facility] Rx#:[id number] Oral 0 Tube Feeding 480 40 Other 150 Output: Urine 1600 300 Other: # Bowel Movements 1 1 Stool Characteristics Soft Soft Liquid Brown Brown Active Medications: Current Medications Acetaminophen (Tylenol) 650 mg PO Q6HR PRN PRN Reason: Pain (Mild) Stop: 12/03/16 08:08 Last Admin: 10/08/16 02:40 Dose: 650 mg Acetylcysteine (Mucomyst 20%) 2 ml HHN Q4HRT [facility] Stop: 12/09/16 14:59 Last Admin: 10/15/16 19:09 Dose: 2 ml Albuterol/Ipratropium (Duoneb Neb) 3 ml HHN Q2HR PRN PRN Reason: Shortness of Breath Stop: 12/03/16 08:08 Albuterol/Ipratropium (Duoneb Neb) 3 ml HHN Q4HRT [facility] Stop: 12/09/16 14:59 Last Admin: 10/15/16 19:09 Dose: 3 ml Amlodipine Besylate (Norvasc) 10 mg PO DAILY [facility] Stop: 12/14/16 08:59 Last Admin: 10/15/16 09:49 Dose: 10 mg Atorvastatin Calcium (Lipitor) 10 mg PO HS [facility] PRN Reason: Protocol Stop: 12/03/16 20:59 Last Admin: 10/15/16 20:57 Dose: 10 mg Calcitriol (Rocaltrol) 0.25 mcg PO DAILY [facility] Stop: 12/05/16 08:59 Last Admin: 10/15/16 09:48 Dose: 0.25 mcg Carvedilol (Coreg) 25 mg PO BID [facility] Stop: 12/03/16 08:59 Last Admin: 10/15/16 16:35 Dose: 25 mg Chlorhexidine Gluconate (Peridex) 15 ml MM 0800,2000 [facility] Stop: 12/10/16 19:59 Last Admin: 10/15/16 20:57 Dose: 15 ml Clonidine HCl (Catapres) 0.2 mg PO Q8HR PRN PRN Reason: SBP GREATER THAN 160 Stop: 12/13/16 14:59 Docusate Sodium (Colace) 100 mg PO BID [facility] Stop: 12/03/16 08:59 Last Admin: 10/15/16 16:35 Dose: 100 mg Donepezil HCl (Aricept) 5 mg PO HS [facility] Stop: 12/03/16 20:59 Last Admin: 10/15/16 20:58 Dose: 5 mg Ferrous Sulfate (Iron) 300 mg PO BID [facility] Stop: 12/04/16 16:59 Last Admin: 10/15/16 16:35 Dose: 300 mg Folic Acid (Folate) 1 mg PO DAILY [facility] Stop: 12/05/16 08:59 Last Admin: 10/15/16 09:48 Dose: 1 mg Furosemide (Lasix) 20 mg IVP DAILY [facility] Stop: 12/09/16 17:29 Last Admin: 10/15/16 09:50 Dose: 20 mg Piperacillin Sod/Tazobactam (Sod 2.25 gm/ Sodium Chloride) 50 mls @ 100 mls/hr IV Q8HR [facility] Stop: 12/11/16 14:59 Last Admin: 10/15/16 20:55 Dose: 100 mls/hr Insulin Aspart (Novolog) 0 units SUBQ ACHS [facility] PRN Reason: Protocol Stop: 12/03/16 07:29 Last Admin: 10/15/16 21:00 Dose: Not Given Lactobacillus Rhamnosus (Culturelle) 1 each PO DAILY [facility] Stop: 12/12/16 08:59 Last Admin: 10/15/16 09:48 Dose: 1 each Levothyroxine Sodium (Synthroid) 0.05 mg PO QDAC [facility] Stop: 12/04/16 07:29 Last Admin: 10/15/16 07:26 Dose: 0.05 mg Lorazepam (Ativan) 0.5 mg IVP Q4HR PRN; Protocol PRN Reason: Agitation Stop: 12/10/16 12:45 Last Admin: 10/14/16 10:45 Dose: 0.5 mg Miscellaneous (Probiotic Screen) 1 ea MC PRN PRN PRN Reason: PROTOCOL Stop: 12/11/16 15:45 Multivitamins/Vitamin C (Theragran) 1 tab PO DAILY [facility] Stop: 12/03/16 08:59 Last Admin: 10/15/16 09:48 Dose: 1 tab Pantoprazole Sodium (Protonix) 40 mg NG DAILY [facility] Stop: 12/03/16 08:59 Last Admin: 10/15/16 09:48 Dose: 40 mg Senna (Senna) 8.6 mg PO HS [facility] Stop: 12/03/16 20:59 Last Admin: 10/14/16 21:11 Dose: 8.6 mg Cardiovascular: Normal S1, Normal S2 Lungs: Other (rales better) Abdomen: Soft - Procedures Procedures: Procedures Procedure Code Date COLONOSCOPY AND BIOPSY 42902 10/04/16 EGD DIAGNOSTIC BRUSH WASH 33538 10/04/16 EXCISION OF LARGE INTESTINE, ENDO, DIAGN [id number] 10/04/16 INSERT EMERGENCY AIRWAY 65156 10/04/16 INSERTION OF ENDOTRACHEAL AIRWAY INTO TRACHEA, VIA OPENING [id number] 10/04/16 INSPECTION OF UPPER INTESTINAL TRACT, ENDO [id number] 10/04/16 RESPIRATORY VENTILATION, 24-96 CONSECUTIVE HOURS [id number] 10/04/16 VENT MGMT INPAT INIT DAY 51326 10/04/16 VENT MGMT INPAT SUBQ DAY 69769 10/04/16 Assessment/Plan - Assessment Assessment: Altered mental state ? etiology ? worsening dementia ? sepis ? respiratory failure r/o acute neuro events Pnemonia CHF CKD HTN Hypothyroidism Hyperlipidemia Diabetes Old CVA Psych disorder Debitly Positive stool OB Colon stricture - Plan Plan: CT Head w/o contrast no acute findings Neurology evaluated the pt Continue Zosyn Vent weaning in progress Follow up labs in am BNP better Continue Lasix Monitor vitals and I/O Monitor pulmonary and renal function Pulmonary and Neprhology on board Tube feeding Follow up lab and chest xray in am Plan of care discussed with nursing staff Daughter Jasmyne was updated on pt's condition and plan of care in details She understood well
[2016-10-16] MEDS: Albuterol/Ipratropium Neb 3 ML AERS HHN SCH ×6 (03:21→23:05)
[2016-10-16 04:45] LABS: % BASOPHILS 0.5 % (0.0-2.0); % EOSINOPHILS 5.3 % (0.0-5.0); % LYMPHOCYTES 10.6 % (20.0-50.0); % MONOCYTES 9.5 % (2.0-10.0); % NEUTROPHILS 74.1 % (40.0-80.0); HEMATOCRIT 32.5 % (35.0-45.0); HEMOGLOBIN 10.8 gm/dL (11.7-16.1); MEAN CELL VOLUME 78.6 fl (81-100); MEAN CORPUSCULAR HEMOGLOBIN 26.1 pg (27.0-31.0); MEAN CORPUSCULAR HGB CONC 33.3 pg (28.0-36.0); MEAN PLATELET VOLUME 7.7 fl; NEUTROPHILE ABSOLUTE 6.9 Th/cmm (1.8-8.0); PLATELET COUNT 229 Th/cmm (150-400); RED BLOOD COUNT 4.14 Mil/cmm (3.80-5.20); RED CELL DISTRIBUTION WIDTH 18.4 % (11.5-20.0); WHITE BLOOD COUNT 9.3 Th/cmm (4.8-10.8)
[2016-10-16 05:11] LABS: ALB/GLOB RATIO 0.7 (1.0-1.8); ALKALINE PHOSPHATASE 67 U/L (34-104); ANION GAP 9.8 (7.0-16.0); BILIRUBIN,TOTAL 0.5 mg/dL (0.3-1.0); BUN - UREA NITROGEN 47 mg/dL (7-25); BUN/CREATININE RATIO 24.7; CALCIUM SERUM 8.3 mg/dL (8.6-10.3); CARBON DIOXIDE 32.7 mEq/L (21.0-31.0); CHLORIDE 96 mEq/L (98-107); CREATININE - SERUM 1.9 mg/dL (0.6-1.2); GLUCOSE 290 mg/dL (70-105); POTASSIUM SERUM 4.5 mEq/L (3.5-5.1); SGOT 27 U/L (13-39); SGPT/ALT 19 U/L (7-52); SODIUM SERUM 134 mEq/L (136-145)
[2016-10-16] MEDS: Levothyroxine 0.05 Mg Tab PO SCH (06:42)
[2016-10-16] MEDS: INSULIN ASPART, RECOMBINANT 100 UNITS/ML SUBQ SCH ×4 (06:42→20:08)
[2016-10-16] MEDS: Lactobacillus Rhamnosus 10 Billion CFU Capsule PO SCH (08:07)
[2016-10-16] MEDS: Multivitamin Tab PO SCH (08:07)
[2016-10-16] MEDS: Ferrous Sulfate 300 MG/5 ML UDC PO SCH ×2 (08:08→16:38)
[2016-10-16] MEDS: Pantoprazole 40 mg/Packet NG SCH (08:08)
[2016-10-16] MEDS: Chlorhexidine Gluconate 0.12% 15mL Mouthwash MM SCH ×2 (08:10→20:03)
[2016-10-16] MEDS ORDERED: Menthol/Zinc Oxide Oint 113gm Tube TP PRN (18:40)
[2016-10-16] MEDS: Atorvastatin Calcium 10 MG TAB PO SCH (20:06)
--- NOTE | 2016-10-16 20:17 | General Progress Note ---
Subjective - Review of Systems Service Date: 10/16/16 Subjective: Patient was seen and examined nurse reported on patient was awake most of the day still confused vent weaning in progress Objective - Results Result Diagrams: 10/16/16 04:35 10/16/16 04:35 Recent Labs: Laboratory Last Values WBC 9.3 Th/cmm (4.8-10.8) 10/16/16 04:35 RBC 4.14 Mil/cmm (3.80-5.20) 10/16/16 04:35 Hgb 10.8 gm/dL (11.7-16.1) L 10/16/16 04:35 Hct 32.5 % (35.0-45.0) L 10/16/16 04:35 MCV 78.6 fl (81-100) L 10/16/16 04:35 MCH 26.1 pg (27.0-31.0) L 10/16/16 04:35 MCHC Differential 33.3 pg (28.0-36.0) 10/16/16 04:35 RDW 18.4 % (11.5-20.0) 10/16/16 04:35 Plt Count 229 Th/cmm (150-400) 10/16/16 04:35 MPV 7.7 fl 10/16/16 04:35 Neutrophils % 74.1 % (40.0-80.0) 10/16/16 04:35 Band Neutrophils % 1 % (0-10) 10/12/16 04:40 Lymphocytes % 10.6 % (20.0-50.0) L 10/16/16 04:35 Monocytes % 9.5 % (2.0-10.0) 10/16/16 04:35 Eosinophils % 5.3 % (0.0-5.0) H 10/16/16 04:35 Basophils % 0.5 % (0.0-2.0) 10/16/16 04:35 Neutrophils (Manual) 66 % (40-80) 10/15/16 05:15 Lymphocytes 20 % (20-50) 10/15/16 05:15 Monocytes 11 % (2-10) H 10/15/16 05:15 Eosinophils 3 % (0-5) 10/15/16 05:15 Platelet Estimate ADEQUATE (NORMAL) 10/15/16 05:15 Platelet Morphology GIANT PLATELETS SEEN (NORMAL) 10/15/16 05:15 Polychromasia 1+ 10/10/16 06:47 Anisocytosis 1+ 10/12/16 04:40 Microcytosis 1+ 10/15/16 05:15 RBC Morph Micro Appear ABNORMAL (NORMAL) 10/15/16 05:15 PT 12.6 SECONDS (9.5-11.5) H 10/08/16 05:20 INR 1.25 (0.5-1.4) 10/08/16 05:20 Specimen Source Arterial 10/15/16 09:50 Sample Site RB 10/15/16 09:50 pH 7.55 (7.35-7.45) H 10/15/16 09:50 pCO2 43.0 mmHg (35.0-45.0) 10/15/16 09:50 pO2 74.0 mmHg (80.0-100.0) L 10/15/16 09:50 HCO3 37.6 mmol/L (20.0-26.0) H 10/15/16 09:50 Base Excess 13.7 mmol/L (-3.0-3.0) H 10/15/16 09:50 O2 Saturation 96.0 % (92.0-100.0) 10/15/16 09:50 Will Test NA 10/15/16 09:50 Vent Rate 12 10/15/16 09:50 Inspired O2 30 10/15/16 09:50 Tidal Volume 400 10/15/16 09:50 PEEP NA 10/15/16 09:50 Pressure (ins/psv/peep) NA 10/15/16 09:50 Critical Value E.PRABHAKAR 10/15/16 09:50 Sodium 134 mEq/L (136-145) L 10/16/16 04:35 Potassium 4.5 mEq/L (3.5-5.1) 10/16/16 04:35 Chloride 96 mEq/L (98-107) L 10/16/16 04:35 Carbon Dioxide 32.7 mEq/L (21.0-31.0) H 10/16/16 04:35 Anion Gap 9.8 (7.0-16.0) 10/16/16 04:35 BUN 47 mg/dL (7-25) H 10/16/16 04:35 Creatinine 1.9 mg/dL (0.6-1.2) H 10/16/16 04:35 Est GFR ( Amer) TNP 10/16/16 04:35 Est GFR (Non-Af Amer) TNP 10/16/16 04:35 BUN/Creatinine Ratio 24.7 10/16/16 04:35 Glucose 290 mg/dL (70-105) H 10/16/16 04:35 POC Glucose 201 MG/DL (70 - 105) H 10/16/16 19:45 Hemoglobin A1c % 5.7 % (4.0-6.0) 10/03/16 20:08 Calcium 8.3 mg/dL (8.6-10.3) L 10/16/16 04:35 Phosphorus 4.4 mg/dL (2.5-5.0) 10/05/16 06:29 Magnesium 2.1 mg/dL (1.9-2.7) 10/12/16 04:40 Iron 20 ug/dL (27-139) L 10/05/16 06:29 TIBC 237 ug/dL (250-450) L 10/05/16 06:29 Iron Saturation 8 % (15-55) L 10/05/16 06:29 Unsaturated IBC 217 ug/dL (118-369) 10/05/16 06:29 Total Bilirubin 0.5 mg/dL (0.3-1.0) 10/16/16 04:35 AST 27 U/L (13-39) 10/16/16 04:35 ALT 19 U/L (7-52) 10/16/16 04:35 Alkaline Phosphatase 67 U/L (34-104) 10/16/16 04:35 Troponin I 0.01 ng/mL (0.01-0.05) 10/03/16 20:08 B-Natriuretic Peptide 2180.0 pg/mL (5.0-100.0) H 10/16/16 04:35 Total Protein 6.1 gm/dL (6.0-8.3) 10/16/16 04:35 Albumin 2.6 gm/dL (3.7-5.3) L 10/16/16 04:35 Globulin 3.5 gm/dL 10/16/16 04:35 Albumin/Globulin Ratio 0.7 (1.0-1.8) L 10/16/16 04:35 Triglycerides 106 mg/dL (<150) 10/03/16 20:08 Cholesterol 97 mg/dL (<200) 10/03/16 20:08 LDL Cholesterol Direct 42 mg/dL (75-193) L 10/03/16 20:08 HDL Cholesterol 38 mg/dL (23-92) 10/03/16 20:08 Carcinoembryonic Ag 4.1 ng/mL (0.0-4.7) 10/10/16 06:47 TSH 14.69 uIU/ml (0.34-5.60) H 10/03/16 20:08 PTH Intact 147 pg/mL (15-65) H 10/06/16 07:20 Urine Source CLEAN C 10/05/16 10:45 Urine Color YELLOW 10/05/16 10:45 Urine Clarity SL. CLOUDY (CLEAR) 10/05/16 10:45 Urine pH 7.5 10/05/16 10:45 Ur Specific [place] 1.020 (1.005-1.030) 10/05/16 10:45 Urine Protein TRACE mg/dL (NEGATIVE) 10/05/16 10:45 Urine Glucose (UA) NEGATIVE mg/dL (NEGATIVE) 10/05/16 10:45 Urine Ketones NEGATIVE mg/dL (NEGATIVE) 10/05/16 10:45 Urine Blood TRACE (NEGATIVE) 10/05/16 10:45 Urine Nitrate NEGATIVE (NEGATIVE) 10/05/16 10:45 Urine Bilirubin NEGATIVE (NEGATIVE) 10/05/16 10:45 Urine Urobilinogen 0.2 E.U./dL (0.2 - 1.0) 10/05/16 10:45 Ur Leukocyte Esterase NEGATIVE (NEGATIVE) 10/05/16 10:45 Urine RBC 0-2 /hpf (0-5) 10/05/16 10:45 Urine WBC 0-2 /hpf (0-5) 10/05/16 10:45 Ur Epithelial Cells RARE /lpf (FEW) 10/05/16 10:45 Urine Bacteria NONE SEEN /hpf (NONE SEEN) 10/05/16 10:45 U Random Total Protein 34.0 mg/dL 10/06/16 06:00 Urine Collection Time 24 hours 10/06/16 06:00 Urine Total Volume 1850 ml 10/06/16 06:00 Urine Creatinine 23.0 mg/dl (28.0-217.0) L 10/06/16 06:00 Creat Clearance 24 Hr 18 ml/min (88.00-128.00) L 10/06/16 06:00 U Tot Protein 24h, Calc 629.0 mg/24 hr (0-165) H 10/06/16 06:00 Body Surface Area 1.47 10/06/16 06:00 Stool Occult Blood POSITIVE (NEGATIVE) 10/07/16 02:00 RPR NONREACTIVE (NONREACTIVE) 10/03/16 20:08 Blood Type AB POSITIVE 10/12/16 09:40 Antibody Screen NEGATIVE 10/12/16 09:40 Crossmatch See Detail 10/12/16 09:40 - Physical Exam Vitals and I&O: Vital Signs Temp 99.0 F 10/16/16 16:00 Pulse 69 10/16/16 19:17 Resp 13 10/16/16 18:00 BP 123/45 10/16/16 18:00 Pulse Ox 100 10/16/16 19:17 Intake & Output 10/16/16 10/16/16 10/17/16 06:59 18:59 06:59 Intake Total 740 710 Output Total 1050 900 Balance -310 -190 Intake: Intake, IV Amount 100 50 Piperacillin Sodium/ 100 50 Tazobact 2.25 gm In Sodium Chloride 0.9% 50 ml @ 100 mls/hr IV Q8HR [facility] Rx#:[id number] Tube Feeding 540 540 Other 100 120 Output: Urine 1050 900 Other: # Bowel Movements 1 1 Stool Characteristics Liquid Brown Active Medications: Current Medications Acetaminophen (Tylenol) 650 mg PO Q6HR PRN PRN Reason: Pain (Mild) Stop: 12/03/16 08:08 Last Admin: 10/08/16 02:40 Dose: 650 mg Acetylcysteine (Mucomyst 20%) 2 ml HHN Q4HRT [facility] Stop: 12/09/16 14:59 Last Admin: 10/16/16 19:17 Dose: 2 ml Albuterol/Ipratropium (Duoneb Neb) 3 ml HHN Q2HR PRN PRN Reason: Shortness of Breath Stop: 12/03/16 08:08 Albuterol/Ipratropium (Duoneb Neb) 3 ml HHN Q4HRT [facility] Stop: 12/09/16 14:59 Last Admin: 10/16/16 19:17 Dose: 3 ml Amlodipine Besylate (Norvasc) 10 mg PO DAILY [facility] Stop: 12/14/16 08:59 Last Admin: 10/16/16 08:08 Dose: 10 mg Atorvastatin Calcium (Lipitor) 10 mg PO HS [facility] PRN Reason: Protocol Stop: 12/03/16 20:59 Last Admin: 10/16/16 20:06 Dose: 10 mg Calamine/Phenol (Calmoseptine) 1 appl TP QID PRN PRN Reason: Skin Irritation Stop: 12/15/16 18:39 Calamine/Phenol (Calmoseptine) 1 appl TP QID [facility] Stop: 12/15/16 20:59 Calcitriol (Rocaltrol) 0.25 mcg PO DAILY [facility] Stop: 12/05/16 08:59 Last Admin: 10/16/16 08:09 Dose: 0.25 mcg Carvedilol (Coreg) 25 mg PO BID [facility] Stop: 12/03/16 08:59 Last Admin: 10/16/16 16:38 Dose: 25 mg Chlorhexidine Gluconate (Peridex) 15 ml MM 0800,2000 [facility] Stop: 12/10/16 19:59 Last Admin: 10/16/16 20:03 Dose: 15 ml Clonidine HCl (Catapres) 0.2 mg PO Q8HR PRN PRN Reason: SBP GREATER THAN 160 Stop: 12/13/16 14:59 Docusate Sodium (Colace) 100 mg PO BID [facility] Stop: 12/03/16 08:59 Last Admin: 10/16/16 16:38 Dose: Not Given Donepezil HCl (Aricept) 5 mg PO HS [facility] Stop: 12/03/16 20:59 Last Admin: 10/16/16 20:06 Dose: 5 mg Ferrous Sulfate (Iron) 300 mg PO BID [facility] Stop: 12/04/16 16:59 Last Admin: 10/16/16 16:38 Dose: 300 mg Folic Acid (Folate) 1 mg PO DAILY [facility] Stop: 12/05/16 08:59 Last Admin: 10/16/16 08:08 Dose: 1 mg Furosemide (Lasix) 20 mg IVP DAILY [facility] Stop: 12/09/16 17:29 Last Admin: 10/16/16 08:08 Dose: 20 mg Piperacillin Sod/Tazobactam (Sod 2.25 gm/ Sodium Chloride) 50 mls @ 100 mls/hr IV Q8HR CRISTIAN Stop: 12/11/16 14:59 Last Admin: 10/16/16 20:06 Dose: 50 mls/hr Insulin Aspart (Novolog) 0 units SUBQ ACHS CRISTIAN PRN Reason: Protocol Stop: 12/03/16 07:29 Last Admin: 10/16/16 20:08 Dose: 4 unit Lactobacillus Rhamnosus (Culturelle) 1 each PO DAILY CRISTIAN Stop: 12/12/16 08:59 Last Admin: 10/16/16 08:07 Dose: 1 each Levothyroxine Sodium (Synthroid) 0.05 mg PO QDAC CRISTIAN Stop: 12/04/16 07:29 Last Admin: 10/16/16 06:42 Dose: 0.05 mg Lorazepam (Ativan) 0.5 mg IVP Q4HR PRN; Protocol PRN Reason: Agitation Stop: 12/10/16 12:45 Last Admin: 10/14/16 10:45 Dose: 0.5 mg Miscellaneous (Probiotic Screen) 1 ea MC PRN PRN PRN Reason: PROTOCOL Stop: 12/11/16 15:45 Multivitamins/Vitamin C (Theragran) 1 tab PO DAILY CRISTIAN Stop: 12/03/16 08:59 Last Admin: 10/16/16 08:07 Dose: 1 tab Pantoprazole Sodium (Protonix) 40 mg NG DAILY CRISTIAN Stop: 12/03/16 08:59 Last Admin: 10/16/16 08:08 Dose: 40 mg Senna (Senna) 8.6 mg PO HS CRISTIAN Stop: 12/03/16 20:59 Last Admin: 10/16/16 20:06 Dose: 8.6 mg General: No acute distress Cardiovascular: Normal S1, Normal S2 Lungs: Other (rales little better) Abdomen: Soft, no Tender - Procedures Procedures: Procedures Procedure Code Date COLONOSCOPY AND BIOPSY 10314 10/04/16 EGD DIAGNOSTIC BRUSH WASH 16464 10/04/16 EXCISION OF LARGE INTESTINE, ENDO, DIAGN [id number] 10/04/16 INSERT EMERGENCY AIRWAY 13794 10/04/16 INSERTION OF ENDOTRACHEAL AIRWAY INTO [place]HEA, VIA OPENING [id number] 10/04/16 INSPECTION OF UPPER INTESTINAL TRACT, ENDO [id number] 10/04/16 RESPIRATORY VENTILATION, 24-96 CONSECUTIVE HOURS [id number] 10/04/16 VENT MGMT INPAT INIT DAY 10/04/16 VENT MGMT INPAT SUBQ 10/04/16 Assessment/Plan - Assessment Assessment: Altered mental state ? etiology ? worsening dementia ? sepis ? respiratory failure r/o acute neuro events Pnemonia CHF CKD HTN Hypothyroidism Hyperlipidemia Diabetes Old CVA Psych disorder Debitly Positive stool OB Colon stricture - Plan Plan: CT Head w/o contrast no acute findings Neurology evaluated the pt Continue Zosyn Vent weaning in progress Follow up labs in am BNP better Continue Lasix Monitor vitals and I/O Monitor pulmonary and renal function Pulmonary and Neprhology on board Tube feeding Follow up lab and chest xray in am Plan of care discussed with nursing staff Daughter Jasmyne was updated on pt's condition and plan of care in details She understood well
[2016-10-17] MEDS: Albuterol/Ipratropium Neb 3 ML AERS HHN SCH ×6 (02:54→22:52)
[2016-10-17 05:07] LABS: % EOSINOPHILS 4.3 % (0.0-5.0); % LYMPHOCYTES 12.1 % (20.0-50.0); % MONOCYTES 6.6 % (2.0-10.0); HEMATOCRIT 33.2 % (35.0-45.0); MEAN CELL VOLUME 80.5 fl (81-100); MEAN CORPUSCULAR HEMOGLOBIN 26.7 pg (27.0-31.0); MEAN CORPUSCULAR HGB CONC 33.2 pg (28.0-36.0); NEUTROPHILE ABSOLUTE 7.2 Th/cmm (1.8-8.0); PLATELET COUNT 244 Th/cmm (150-400); RED BLOOD COUNT 4.12 Mil/cmm (3.80-5.20); RED CELL DISTRIBUTION WIDTH 18.7 % (11.5-20.0); WHITE BLOOD COUNT 9.4 Th/cmm (4.8-10.8)
[2016-10-17 05:51] LABS: ANION GAP 14.3 (7.0-16.0); BUN - UREA NITROGEN 49 mg/dL (7-25); BUN/CREATININE RATIO 24.5; CALCIUM SERUM 8.6 mg/dL (8.6-10.3); CARBON DIOXIDE 33.4 mEq/L (21.0-31.0); CHLORIDE 93 mEq/L (98-107); GLUCOSE 256 mg/dL (70-105); POTASSIUM SERUM 4.7 mEq/L (3.5-5.1); SODIUM SERUM 136 mEq/L (136-145)
[2016-10-17] MEDS: Levothyroxine 0.05 Mg Tab PO SCH (06:48)
[2016-10-17] MEDS: INSULIN ASPART, RECOMBINANT 100 UNITS/ML SUBQ SCH ×4 (06:49→20:21)
[2016-10-17] MEDS: Chlorhexidine Gluconate 0.12% 15mL Mouthwash MM SCH ×2 (08:01→20:17)
[2016-10-17] MEDS: Multivitamin Tab PO SCH (09:03)
[2016-10-17] MEDS: Pantoprazole 40 mg/Packet NG SCH (09:05)
[2016-10-17] MEDS: Lactobacillus Rhamnosus 10 Billion CFU Capsule PO SCH (09:05)
[2016-10-17] MEDS: Menthol/Zinc Oxide Oint 113gm Tube TP SCH ×4 (09:06→20:21)
[2016-10-17] MEDS: Ferrous Sulfate 300 MG/5 ML UDC PO SCH ×2 (09:06→17:21)
--- NOTE | 2016-10-17 09:55 | Diagnostic Imaging Report ---
CHEST X-RAY: AP view INDICATION: Shortness of breath COMPARISON: 10/15/2016 FINDINGS: ET tube is seen with tip 1 cm above the delmy. NG tube is stable. Mild improving congestive changes are noted. No focal consolidation or pleural effusions. Heart size is normal. IMPRESSION: Mild improvement in congestive changes ET tube with tip 1 cm above the Delmy.
[2016-10-17] MEDS: Atorvastatin Calcium 10 MG TAB PO SCH (20:17)
--- NOTE | 2016-10-17 22:31 | General Progress Note ---
Subjective - Review of Systems Service Date: 10/17/16 Subjective: Patient was seen and examined nurse reported on patient was awake most of the day still confused vent weaning in progress Objective - Results Result Diagrams: 10/17/16 04:40 10/17/16 04:40 Recent Labs: Laboratory Last Values WBC 9.4 Th/cmm (4.8-10.8) 10/17/16 04:40 RBC 4.12 Mil/cmm (3.80-5.20) 10/17/16 04:40 Hgb 11.0 gm/dL (11.7-16.1) L 10/17/16 04:40 Hct 33.2 % (35.0-45.0) L 10/17/16 04:40 MCV 80.5 fl (81-100) L 10/17/16 04:40 MCH 26.7 pg (27.0-31.0) L 10/17/16 04:40 MCHC Differential 33.2 pg (28.0-36.0) 10/17/16 04:40 RDW 18.7 % (11.5-20.0) 10/17/16 04:40 Plt Count 244 Th/cmm (150-400) 10/17/16 04:40 MPV 8.0 fl 10/17/16 04:40 Neutrophils % 76.0 % (40.0-80.0) 10/17/16 04:40 Band Neutrophils % 1 % (0-10) 10/12/16 04:40 Lymphocytes % 12.1 % (20.0-50.0) L 10/17/16 04:40 Monocytes % 6.6 % (2.0-10.0) 10/17/16 04:40 Eosinophils % 4.3 % (0.0-5.0) 10/17/16 04:40 Basophils % 1.0 % (0.0-2.0) 10/17/16 04:40 Neutrophils (Manual) 66 % (40-80) 10/15/16 05:15 Lymphocytes 20 % (20-50) 10/15/16 05:15 Monocytes 11 % (2-10) H 10/15/16 05:15 Eosinophils 3 % (0-5) 10/15/16 05:15 Platelet Estimate ADEQUATE (NORMAL) 10/15/16 05:15 Platelet Morphology GIANT PLATELETS SEEN (NORMAL) 10/15/16 05:15 Polychromasia 1+ 10/10/16 06:47 Anisocytosis 1+ 10/12/16 04:40 Microcytosis 1+ 10/15/16 05:15 RBC Morph Micro Appear ABNORMAL (NORMAL) 10/15/16 05:15 PT 12.6 SECONDS (9.5-11.5) H 10/08/16 05:20 INR 1.25 (0.5-1.4) 10/08/16 05:20 Specimen Source Arterial 10/15/16 09:50 Sample Site RB 10/15/16 09:50 pH 7.55 (7.35-7.45) H 10/15/16 09:50 pCO2 43.0 mmHg (35.0-45.0) 10/15/16 09:50 pO2 74.0 mmHg (80.0-100.0) L 10/15/16 09:50 HCO3 37.6 mmol/L (20.0-26.0) H 10/15/16 09:50 Base Excess 13.7 mmol/L (-3.0-3.0) H 10/15/16 09:50 O2 Saturation 96.0 % (92.0-100.0) 10/15/16 09:50 Will Test NA 10/15/16 09:50 Vent Rate 12 10/15/16 09:50 Inspired O2 30 10/15/16 09:50 Tidal Volume 400 10/15/16 09:50 PEEP NA 10/15/16 09:50 Pressure (ins/psv/peep) NA 10/15/16 09:50 Critical Value E.PRABHAKAR 10/15/16 09:50 Sodium 136 mEq/L (136-145) 10/17/16 04:40 Potassium 4.7 mEq/L (3.5-5.1) 10/17/16 04:40 Chloride 93 mEq/L (98-107) L 10/17/16 04:40 Carbon Dioxide 33.4 mEq/L (21.0-31.0) H 10/17/16 04:40 Anion Gap 14.3 (7.0-16.0) 10/17/16 04:40 BUN 49 mg/dL (7-25) H 10/17/16 04:40 Creatinine 2.0 mg/dL (0.6-1.2) H 10/17/16 04:40 Est GFR ( Amer) TNP 10/17/16 04:40 Est GFR (Non-Af Amer) TNP 10/17/16 04:40 BUN/Creatinine Ratio 24.5 10/17/16 04:40 Glucose 256 mg/dL (70-105) H 10/17/16 04:40 POC Glucose 148 MG/DL (70 - 105) H 10/17/16 20:15 Hemoglobin A1c % 5.7 % (4.0-6.0) 10/03/16 20:08 Calcium 8.6 mg/dL (8.6-10.3) 10/17/16 04:40 Phosphorus 4.4 mg/dL (2.5-5.0) 10/05/16 06:29 Magnesium 2.1 mg/dL (1.9-2.7) 10/12/16 04:40 Iron 20 ug/dL (27-139) L 10/05/16 06:29 TIBC 237 ug/dL (250-450) L 10/05/16 06:29 Iron Saturation 8 % (15-55) L 10/05/16 06:29 Unsaturated IBC 217 ug/dL (118-369) 10/05/16 06:29 Total Bilirubin 0.5 mg/dL (0.3-1.0) 10/16/16 04:35 AST 27 U/L (13-39) 10/16/16 04:35 ALT 19 U/L (7-52) 10/16/16 04:35 Alkaline Phosphatase 67 U/L (34-104) 10/16/16 04:35 Troponin I 0.01 ng/mL (0.01-0.05) 10/03/16 20:08 B-Natriuretic Peptide 2180.0 pg/mL (5.0-100.0) H 10/16/16 04:35 Total Protein 6.1 gm/dL (6.0-8.3) 10/16/16 04:35 Albumin 2.6 gm/dL (3.7-5.3) L 10/16/16 04:35 Globulin 3.5 gm/dL 10/16/16 04:35 Albumin/Globulin Ratio 0.7 (1.0-1.8) L 10/16/16 04:35 Triglycerides 106 mg/dL (<150) 10/03/16 20:08 Cholesterol 97 mg/dL (<200) 10/03/16 20:08 LDL Cholesterol Direct 42 mg/dL (75-193) L 10/03/16 20:08 HDL Cholesterol 38 mg/dL (23-92) 10/03/16 20:08 Carcinoembryonic Ag 4.1 ng/mL (0.0-4.7) 10/10/16 06:47 TSH 14.69 uIU/ml (0.34-5.60) H 10/03/16 20:08 PTH Intact 147 pg/mL (15-65) H 10/06/16 07:20 Urine Source CLEAN C 10/05/16 10:45 Urine Color YELLOW 10/05/16 10:45 Urine Clarity SL. CLOUDY (CLEAR) 10/05/16 10:45 Urine pH 7.5 10/05/16 10:45 Ur Specific [place] 1.020 (1.005-1.030) 10/05/16 10:45 Urine Protein TRACE mg/dL (NEGATIVE) 10/05/16 10:45 Urine Glucose (UA) NEGATIVE mg/dL (NEGATIVE) 10/05/16 10:45 Urine Ketones NEGATIVE mg/dL (NEGATIVE) 10/05/16 10:45 Urine Blood TRACE (NEGATIVE) 10/05/16 10:45 Urine Nitrate NEGATIVE (NEGATIVE) 10/05/16 10:45 Urine Bilirubin NEGATIVE (NEGATIVE) 10/05/16 10:45 Urine Urobilinogen 0.2 E.U./dL (0.2 - 1.0) 10/05/16 10:45 Ur Leukocyte Esterase NEGATIVE (NEGATIVE) 10/05/16 10:45 Urine RBC 0-2 /hpf (0-5) 10/05/16 10:45 Urine WBC 0-2 /hpf (0-5) 10/05/16 10:45 Ur Epithelial Cells RARE /lpf (FEW) 10/05/16 10:45 Urine Bacteria NONE SEEN /hpf (NONE SEEN) 10/05/16 10:45 U Random Total Protein 34.0 mg/dL 10/06/16 06:00 Urine Collection Time 24 hours 10/06/16 06:00 Urine Total Volume 1850 ml 10/06/16 06:00 Urine Creatinine 23.0 mg/dl (28.0-217.0) L 10/06/16 06:00 Creat Clearance 24 Hr 18 ml/min (88.00-128.00) L 10/06/16 06:00 U Tot Protein 24h, Calc 629.0 mg/24 hr (0-165) H 10/06/16 06:00 Body Surface Area 1.47 10/06/16 06:00 Stool Occult Blood POSITIVE (NEGATIVE) 10/07/16 02:00 RPR NONREACTIVE (NONREACTIVE) 10/03/16 20:08 Blood Type AB POSITIVE 10/12/16 09:40 Antibody Screen NEGATIVE 10/12/16 09:40 Crossmatch See Detail 10/12/16 09:40 - Physical Exam Vitals and I&O: Vital Signs Temp 97.0 F 10/17/16 20:00 Pulse 67 10/17/16 22:00 Resp 11 10/17/16 22:00 BP 131/43 10/17/16 22:00 Pulse Ox 100 10/17/16 22:00 Intake & Output 10/17/16 10/17/16 10/18/16 06:59 18:59 06:59 Intake Total 550 625 Output Total 750 850 Balance -200 -225 Intake: Intake, IV Amount 100 50 Piperacillin Sodium/ 100 50 Tazobact 2.25 gm In Sodium Chloride 0.9% 50 ml @ 100 mls/hr IV Q8HR [facility] Rx#:[id number] Oral 0 Tube Feeding 450 475 Other 100 Output: Urine 750 850 Stool 0 Other: # Bowel Movements 3 2 Stool Characteristics Liquid Liquid Liquid Brown Active Medications: Current Medications Acetaminophen (Tylenol) 650 mg PO Q6HR PRN PRN Reason: Pain (Mild) Stop: 12/03/16 08:08 Last Admin: 10/08/16 02:40 Dose: 650 mg Acetylcysteine (Mucomyst 20%) 2 ml HHN Q4HRT [facility] Stop: 12/09/16 14:59 Last Admin: 10/17/16 18:48 Dose: 2 ml Albuterol/Ipratropium (Duoneb Neb) 3 ml HHN Q2HR PRN PRN Reason: Shortness of Breath Stop: 12/03/16 08:08 Albuterol/Ipratropium (Duoneb Neb) 3 ml HHN Q4HRT [facility] Stop: 12/09/16 14:59 Last Admin: 10/17/16 18:48 Dose: 3 ml Amlodipine Besylate (Norvasc) 10 mg PO DAILY [facility] Stop: 12/14/16 08:59 Last Admin: 10/17/16 09:05 Dose: 10 mg Atorvastatin Calcium (Lipitor) 10 mg PO HS [facility] PRN Reason: Protocol Stop: 12/03/16 20:59 Last Admin: 10/17/16 20:17 Dose: 10 mg Calamine/Phenol (Calmoseptine) 1 appl TP QID PRN PRN Reason: Skin Irritation Stop: 12/15/16 18:39 Calamine/Phenol (Calmoseptine) 1 appl TP QID [facility] Stop: 12/15/16 20:59 Last Admin: 10/17/16 20:21 Dose: 1 appl Calcitriol (Rocaltrol) 0.25 mcg PO DAILY [facility] Stop: 12/05/16 08:59 Last Admin: 10/17/16 09:03 Dose: 0.25 mcg Carvedilol (Coreg) 25 mg PO BID [facility] Stop: 12/03/16 08:59 Last Admin: 10/17/16 17:21 Dose: 25 mg Chlorhexidine Gluconate (Peridex) 15 ml MM 0800,2000 [facility] Stop: 12/10/16 19:59 Last Admin: 10/17/16 20:17 Dose: 15 ml Clonidine HCl (Catapres) 0.2 mg PO Q8HR PRN PRN Reason: SBP GREATER THAN 160 Stop: 12/13/16 14:59 Docusate Sodium (Colace) 100 mg PO BID [facility] Stop: 12/03/16 08:59 Last Admin: 10/17/16 17:22 Dose: Not Given Donepezil HCl (Aricept) 5 mg PO HS [facility] Stop: 12/03/16 20:59 Last Admin: 10/17/16 20:18 Dose: 5 mg Ferrous Sulfate (Iron) 300 mg PO BID [facility] Stop: 12/04/16 16:59 Last Admin: 10/17/16 17:21 Dose: 300 mg Folic Acid (Folate) 1 mg PO DAILY [facility] Stop: 12/05/16 08:59 Last Admin: 10/17/16 09:05 Dose: 1 mg Furosemide (Lasix) 20 mg IVP DAILY [facility] Stop: 12/09/16 17:29 Last Admin: 10/17/16 09:05 Dose: 20 mg Piperacillin Sod/Tazobactam (Sod 2.25 gm/ Sodium Chloride) 50 mls @ 100 mls/hr IV Q8HR [facility] Stop: 12/11/16 14:59 Last Admin: 10/17/16 20:17 Dose: 100 mls/hr Insulin Aspart (Novolog) 0 units SUBQ ACHS [facility] PRN Reason: Protocol Stop: 12/03/16 07:29 Last Admin: 10/17/16 20:21 Dose: Not Given Lactobacillus Rhamnosus (Culturelle) 1 each PO DAILY [facility] Stop: 12/12/16 08:59 Last Admin: 10/17/16 09:05 Dose: 1 each Levothyroxine Sodium (Synthroid) 0.05 mg PO QDAC [facility] Stop: 12/04/16 07:29 Last Admin: 10/17/16 06:48 Dose: 0.05 mg Lorazepam (Ativan) 0.5 mg IVP Q4HR PRN; Protocol PRN Reason: Agitation Stop: 12/10/16 12:45 Last Admin: 10/14/16 10:45 Dose: 0.5 mg Miscellaneous (Probiotic Screen) 1 ea MC PRN PRN PRN Reason: PROTOCOL Stop: 12/11/16 15:45 Multivitamins/Vitamin C (Theragran) 1 tab PO DAILY [facility] Stop: 12/03/16 08:59 Last Admin: 10/17/16 09:03 Dose: 1 tab Pantoprazole Sodium (Protonix) 40 mg NG DAILY [facility] Stop: 12/03/16 08:59 Last Admin: 10/17/16 09:05 Dose: 40 mg Senna (Senna) 8.6 mg PO HS [facility] Stop: 12/03/16 20:59 Last Admin: 10/17/16 20:17 Dose: 8.6 mg General: No acute distress Cardiovascular: Normal S1, Normal S2 Lungs: Other (rales better) Abdomen: Soft, no Tender - Procedures Procedures: Procedures Procedure Code Date COLONOSCOPY AND BIOPSY 03039 10/04/16 EGD DIAGNOSTIC BRUSH WASH 57128 10/04/16 EXCISION OF LARGE INTESTINE, ENDO, DIAGN [id number] 10/04/16 INSERT EMERGENCY AIRWAY 11292 10/04/16 INSERTION OF ENDOTRACHEAL AIRWAY INTO [place]HEA, VIA OPENING [id number] 10/04/16 INSPECTION OF UPPER INTESTINAL TRACT, ENDO [id number] 10/04/16 RESPIRATORY VENTILATION, GREATER THAN 96 CONSECUTIVE HOURS [id number] 10/04/16 VENT MGMT INPAT INIT DAY 10/04/16 VENT MGMT INPAT SUBQ DAY 10/04/16 Assessment/Plan - Assessment Assessment: [place]nem[place] CHF CKD HTN Hypothyroidism Hyperlipidemia Diabetes Old CVA Psych disorder Debitly Positive stool OB Colon stricture - Plan Plan: Continue Zosyn Vent weaning in progress Follow up labs in am BNP better Continue Lasix Monitor vitals and I/O Monitor pulmonary and renal function Pulmonary and Neprhology on board Tube feeding Follow up lab and chest xray in am Plan of care discussed with nursing staff Daughter Jasmyne was updated on pt's condition and plan of care in details She understood well
[2016-10-18] MEDS: Albuterol/Ipratropium Neb 3 ML AERS HHN SCH ×6 (02:57→23:16)
[2016-10-18] MEDS: Levothyroxine 0.05 Mg Tab PO SCH (06:33)
[2016-10-18] MEDS: INSULIN ASPART, RECOMBINANT 100 UNITS/ML SUBQ SCH ×4 (06:33→20:20)
[2016-10-18] MEDS: Chlorhexidine Gluconate 0.12% 15mL Mouthwash MM SCH ×2 (07:59→19:35)
[2016-10-18] MEDS: Lactobacillus Rhamnosus 10 Billion CFU Capsule PO SCH (09:05)
[2016-10-18] MEDS: Menthol/Zinc Oxide Oint 113gm Tube TP SCH ×4 (09:05→20:19)
[2016-10-18] MEDS: Pantoprazole 40 mg/Packet NG SCH (09:05)
[2016-10-18] MEDS: Multivitamin Tab PO SCH (09:05)
[2016-10-18] MEDS: Ferrous Sulfate 300 MG/5 ML UDC PO SCH ×2 (09:05→17:10)
--- NOTE | 2016-10-18 13:39 | General Progress Note ---
Subjective - Review of Systems Service Date: 10/18/16 Subjective: Patient was seen and examined drowsy remains vent nurse reported pt seems to have generalized itching no rash noted Objective - Results Result Diagrams: 10/17/16 04:40 10/17/16 04:40 Recent Labs: Laboratory Last Values WBC 9.4 Th/cmm (4.8-10.8) 10/17/16 04:40 RBC 4.12 Mil/cmm (3.80-5.20) 10/17/16 04:40 Hgb 11.0 gm/dL (11.7-16.1) L 10/17/16 04:40 Hct 33.2 % (35.0-45.0) L 10/17/16 04:40 MCV 80.5 fl (81-100) L 10/17/16 04:40 MCH 26.7 pg (27.0-31.0) L 10/17/16 04:40 MCHC Differential 33.2 pg (28.0-36.0) 10/17/16 04:40 RDW 18.7 % (11.5-20.0) 10/17/16 04:40 Plt Count 244 Th/cmm (150-400) 10/17/16 04:40 MPV 8.0 fl 10/17/16 04:40 Neutrophils % 76.0 % (40.0-80.0) 10/17/16 04:40 Band Neutrophils % 1 % (0-10) 10/12/16 04:40 Lymphocytes % 12.1 % (20.0-50.0) L 10/17/16 04:40 Monocytes % 6.6 % (2.0-10.0) 10/17/16 04:40 Eosinophils % 4.3 % (0.0-5.0) 10/17/16 04:40 Basophils % 1.0 % (0.0-2.0) 10/17/16 04:40 Neutrophils (Manual) 66 % (40-80) 10/15/16 05:15 Lymphocytes 20 % (20-50) 10/15/16 05:15 Monocytes 11 % (2-10) H 10/15/16 05:15 Eosinophils 3 % (0-5) 10/15/16 05:15 Platelet Estimate ADEQUATE (NORMAL) 10/15/16 05:15 Platelet Morphology GIANT PLATELETS SEEN (NORMAL) 10/15/16 05:15 Polychromasia 1+ 10/10/16 06:47 Anisocytosis 1+ 10/12/16 04:40 Microcytosis 1+ 10/15/16 05:15 RBC Morph Micro Appear ABNORMAL (NORMAL) 10/15/16 05:15 PT 12.6 SECONDS (9.5-11.5) H 10/08/16 05:20 INR 1.25 (0.5-1.4) 10/08/16 05:20 Specimen Source Arterial 10/15/16 09:50 Sample Site RB 10/15/16 09:50 pH 7.55 (7.35-7.45) H 10/15/16 09:50 pCO2 43.0 mmHg (35.0-45.0) 10/15/16 09:50 pO2 74.0 mmHg (80.0-100.0) L 10/15/16 09:50 HCO3 37.6 mmol/L (20.0-26.0) H 10/15/16 09:50 Base Excess 13.7 mmol/L (-3.0-3.0) H 10/15/16 09:50 O2 Saturation 96.0 % (92.0-100.0) 10/15/16 09:50 Will Test NA 10/15/16 09:50 Vent Rate 12 10/15/16 09:50 Inspired O2 30 10/15/16 09:50 Tidal Volume 400 10/15/16 09:50 PEEP NA 10/15/16 09:50 Pressure (ins/psv/peep) NA 10/15/16 09:50 Critical Value E.PRABHAKAR 10/15/16 09:50 Sodium 136 mEq/L (136-145) 10/17/16 04:40 Potassium 4.7 mEq/L (3.5-5.1) 10/17/16 04:40 Chloride 93 mEq/L (98-107) L 10/17/16 04:40 Carbon Dioxide 33.4 mEq/L (21.0-31.0) H 10/17/16 04:40 Anion Gap 14.3 (7.0-16.0) 10/17/16 04:40 BUN 49 mg/dL (7-25) H 10/17/16 04:40 Creatinine 2.0 mg/dL (0.6-1.2) H 10/17/16 04:40 Est GFR ( Amer) TNP 10/17/16 04:40 Est GFR (Non-Af Amer) TNP 10/17/16 04:40 BUN/Creatinine Ratio 24.5 10/17/16 04:40 Glucose 256 mg/dL (70-105) H 10/17/16 04:40 POC Glucose 202 MG/DL (70 - 105) H 10/18/16 12:00 Hemoglobin A1c % 5.7 % (4.0-6.0) 10/03/16 20:08 Calcium 8.6 mg/dL (8.6-10.3) 10/17/16 04:40 Phosphorus 4.4 mg/dL (2.5-5.0) 10/05/16 06:29 Magnesium 2.1 mg/dL (1.9-2.7) 10/12/16 04:40 Iron 20 ug/dL (27-139) L 10/05/16 06:29 TIBC 237 ug/dL (250-450) L 10/05/16 06:29 Iron Saturation 8 % (15-55) L 10/05/16 06:29 Unsaturated IBC 217 ug/dL (118-369) 10/05/16 06:29 Total Bilirubin 0.5 mg/dL (0.3-1.0) 10/16/16 04:35 AST 27 U/L (13-39) 10/16/16 04:35 ALT 19 U/L (7-52) 10/16/16 04:35 Alkaline Phosphatase 67 U/L (34-104) 10/16/16 04:35 Troponin I 0.01 ng/mL (0.01-0.05) 10/03/16 20:08 B-Natriuretic Peptide 2180.0 pg/mL (5.0-100.0) H 10/16/16 04:35 Total Protein 6.1 gm/dL (6.0-8.3) 10/16/16 04:35 Albumin 2.6 gm/dL (3.7-5.3) L 10/16/16 04:35 Globulin 3.5 gm/dL 10/16/16 04:35 Albumin/Globulin Ratio 0.7 (1.0-1.8) L 10/16/16 04:35 Triglycerides 106 mg/dL (<150) 10/03/16 20:08 Cholesterol 97 mg/dL (<200) 10/03/16 20:08 LDL Cholesterol Direct 42 mg/dL (75-193) L 10/03/16 20:08 HDL Cholesterol 38 mg/dL (23-92) 10/03/16 20:08 Carcinoembryonic Ag 4.1 ng/mL (0.0-4.7) 10/10/16 06:47 TSH 14.69 uIU/ml (0.34-5.60) H 10/03/16 20:08 PTH Intact 147 pg/mL (15-65) H 10/06/16 07:20 Urine Source CLEAN C 10/05/16 10:45 Urine Color YELLOW 10/05/16 10:45 Urine Clarity SL. CLOUDY (CLEAR) 10/05/16 10:45 Urine pH 7.5 10/05/16 10:45 Ur Specific [place] 1.020 (1.005-1.030) 10/05/16 10:45 Urine Protein TRACE mg/dL (NEGATIVE) 10/05/16 10:45 Urine Glucose (UA) NEGATIVE mg/dL (NEGATIVE) 10/05/16 10:45 Urine Ketones NEGATIVE mg/dL (NEGATIVE) 10/05/16 10:45 Urine Blood TRACE (NEGATIVE) 10/05/16 10:45 Urine Nitrate NEGATIVE (NEGATIVE) 10/05/16 10:45 Urine Bilirubin NEGATIVE (NEGATIVE) 10/05/16 10:45 Urine Urobilinogen 0.2 E.U./dL (0.2 - 1.0) 10/05/16 10:45 Ur Leukocyte Esterase NEGATIVE (NEGATIVE) 10/05/16 10:45 Urine RBC 0-2 /hpf (0-5) 10/05/16 10:45 Urine WBC 0-2 /hpf (0-5) 10/05/16 10:45 Ur Epithelial Cells RARE /lpf (FEW) 10/05/16 10:45 Urine Bacteria NONE SEEN /hpf (NONE SEEN) 10/05/16 10:45 U Random Total Protein 34.0 mg/dL 10/06/16 06:00 Urine Collection Time 24 hours 10/06/16 06:00 Urine Total Volume 1850 ml 10/06/16 06:00 Urine Creatinine 23.0 mg/dl (28.0-217.0) L 10/06/16 06:00 Creat Clearance 24 Hr 18 ml/min (88.00-128.00) L 10/06/16 06:00 U Tot Protein 24h, Calc 629.0 mg/24 hr (0-165) H 10/06/16 06:00 Body Surface Area 1.47 10/06/16 06:00 Stool Occult Blood POSITIVE (NEGATIVE) 10/07/16 02:00 RPR NONREACTIVE (NONREACTIVE) 10/03/16 20:08 Blood Type AB POSITIVE 10/12/16 09:40 Antibody Screen NEGATIVE 10/12/16 09:40 Crossmatch See Detail 10/12/16 09:40 - Physical Exam Vitals and I&O: Vital Signs Temp 99.2 F 10/18/16 12:00 Pulse 68 10/18/16 13:12 Resp 12 10/18/16 13:00 BP 133/45 10/18/16 13:00 Pulse Ox 100 10/18/16 13:12 Intake & Output 10/17/16 10/18/16 10/18/16 18:59 06:59 18:59 Intake Total 625 620 Output Total 850 600 Balance -225 20 Intake: Intake, IV Amount 50 100 Piperacillin Sodium/ 50 100 Tazobact 2.25 gm In Sodium Chloride 0.9% 50 ml @ 100 mls/hr IV Q8HR [facility] Rx#:[id number] Oral 0 Tube Feeding 475 420 Other 100 100 Output: Urine 850 600 Stool 0 Other: # Bowel Movements 2 3 Stool Characteristics Liquid Liquid Liquid Active Medications: Current Medications Acetaminophen (Tylenol) 650 mg PO Q6HR PRN PRN Reason: Pain (Mild) Stop: 12/03/16 08:08 Last Admin: 10/08/16 02:40 Dose: 650 mg Acetylcysteine (Mucomyst 20%) 2 ml HHN Q4HRT [facility] Stop: 12/09/16 14:59 Last Admin: 10/18/16 11:22 Dose: 2 ml Albuterol/Ipratropium (Duoneb Neb) 3 ml HHN Q2HR PRN PRN Reason: Shortness of Breath Stop: 12/03/16 08:08 Albuterol/Ipratropium (Duoneb Neb) 3 ml HHN Q4HRT [facility] Stop: 12/09/16 14:59 Last Admin: 10/18/16 11:22 Dose: 3 ml Amlodipine Besylate (Norvasc) 10 mg PO DAILY [facility] Stop: 12/14/16 08:59 Last Admin: 10/18/16 09:05 Dose: 10 mg Atorvastatin Calcium (Lipitor) 10 mg PO HS [facility] PRN Reason: Protocol Stop: 12/03/16 20:59 Last Admin: 10/17/16 20:17 Dose: 10 mg Calamine/Phenol (Calmoseptine) 1 appl TP QID PRN PRN Reason: Skin Irritation Stop: 12/15/16 18:39 Calamine/Phenol (Calmoseptine) 1 appl TP QID [facility] Stop: 12/15/16 20:59 Last Admin: 10/18/16 13:00 Dose: 1 appl Calcitriol (Rocaltrol) 0.25 mcg PO DAILY [facility] Stop: 12/05/16 08:59 Last Admin: 10/18/16 09:05 Dose: 0.25 mcg Carvedilol (Coreg) 25 mg PO BID [facility] Stop: 12/03/16 08:59 Last Admin: 10/18/16 09:06 Dose: 25 mg Chlorhexidine Gluconate (Peridex) 15 ml MM 0800,2000 [facility] Stop: 12/10/16 19:59 Last Admin: 10/18/16 07:59 Dose: 15 ml Clonidine HCl (Catapres) 0.2 mg PO Q8HR PRN PRN Reason: SBP GREATER THAN 160 Stop: 12/13/16 14:59 Donepezil HCl (Aricept) 5 mg PO HS [facility] Stop: 12/03/16 20:59 Last Admin: 10/17/16 20:18 Dose: 5 mg Ferrous Sulfate (Iron) 300 mg PO BID [facility] Stop: 12/04/16 16:59 Last Admin: 10/18/16 09:05 Dose: 300 mg Folic Acid (Folate) 1 mg PO DAILY [facility] Stop: 12/05/16 08:59 Last Admin: 10/18/16 09:05 Dose: 1 mg Piperacillin Sod/Tazobactam (Sod 2.25 gm/ Sodium Chloride) 50 mls @ 100 mls/hr IV Q8HR [facility] Stop: 12/11/16 14:59 Last Admin: 10/18/16 13:00 Dose: 100 mls/hr Insulin Aspart (Novolog) 0 units SUBQ ACHS [facility] PRN Reason: Protocol Stop: 12/03/16 07:29 Last Admin: 10/18/16 12:02 Dose: 4 unit Lactobacillus Rhamnosus (Culturelle) 1 each PO DAILY [facility] Stop: 12/12/16 08:59 Last Admin: 10/18/16 09:05 Dose: 1 each Levothyroxine Sodium (Synthroid) 0.05 mg PO QDAC [facility] Stop: 12/04/16 07:29 Last Admin: 10/18/16 06:33 Dose: 0.05 mg Lorazepam (Ativan) 0.5 mg IVP Q4HR PRN; Protocol PRN Reason: Agitation Stop: 12/10/16 12:45 Last Admin: 10/14/16 10:45 Dose: 0.5 mg Miscellaneous (Probiotic Screen) 1 ea MC PRN PRN PRN Reason: PROTOCOL Stop: 12/11/16 15:45 Multivitamins/Vitamin C (Theragran) 1 tab PO DAILY [facility] Stop: 12/03/16 08:59 Last Admin: 10/18/16 09:05 Dose: 1 tab Pantoprazole Sodium (Protonix) 40 mg NG DAILY [facility] Stop: 12/03/16 08:59 Last Admin: 10/18/16 09:05 Dose: 40 mg Senna (Senna) 8.6 mg PO HS [facility] Stop: 12/03/16 20:59 Last Admin: 10/17/16 20:17 Dose: 8.6 mg Cardiovascular: Normal S1, Normal S2 Lungs: Other (rales better) Abdomen: Soft, Tender Skin: no Rash - Procedures Procedures: Procedures Procedure Code Date COLONOSCOPY AND BIOPSY 55171 10/04/16 EGD DIAGNOSTIC BRUSH WASH 40115 10/04/16 EXCISION OF LARGE INTESTINE, ENDO, DIAGN [id number] 10/04/16 INSERT EMERGENCY AIRWAY 73833 10/04/16 INSERTION OF ENDOTRACHEAL AIRWAY INTO TRACHEA, VIA OPENING [id number] 10/04/16 INSPECTION OF UPPER INTESTINAL TRACT, ENDO [id number] 10/04/16 RESPIRATORY VENTILATION, GREATER THAN 96 CONSECUTIVE HOURS [id number] 10/04/16 VENT MGMT INPAT INIT DAY 50543 10/04/16 VENT MGMT INPAT SUBQ DAY 59718 10/04/16 Assessment/Plan - Assessment Assessment: Pnemonia CHF CKD HTN Hypothyroidism Hyperlipidemia Diabetes Old CVA Psych disorder Debitly Positive stool OB Colon stricture - Plan Plan: Atarax prn Continue Zosyn Vent weaning in progress Follow up labs in am BNP better Continue Lasix Monitor vitals and I/O Monitor pulmonary and renal function Pulmonary and Neprhology on board Tube feeding Follow up lab and chest xray in am Plan of care discussed with nursing staff Daughter Jasmyne was updated on pt's condition and plan of care in details She understood well
[2016-10-18] MEDS: Atorvastatin Calcium 10 MG TAB PO SCH (20:19)
[2016-10-19] MEDS: Albuterol/Ipratropium Neb 3 ML AERS HHN SCH ×6 (03:24→22:45)
[2016-10-19 05:19] LABS: % BASOPHILS 0.8 % (0.0-2.0); % EOSINOPHILS 5.3 % (0.0-5.0); % LYMPHOCYTES 10.3 % (20.0-50.0); % MONOCYTES 5.4 % (2.0-10.0); % NEUTROPHILS 78.2 % (40.0-80.0); HEMATOCRIT 32.3 % (35.0-45.0); HEMOGLOBIN 10.5 gm/dL (11.7-16.1); MEAN CELL VOLUME 80.8 fl (81-100); MEAN CORPUSCULAR HEMOGLOBIN 26.3 pg (27.0-31.0); MEAN CORPUSCULAR HGB CONC 32.6 pg (28.0-36.0); MEAN PLATELET VOLUME 8.6 fl; NEUTROPHILE ABSOLUTE 7.5 Th/cmm (1.8-8.0); RED BLOOD COUNT 4.01 Mil/cmm (3.80-5.20); RED CELL DISTRIBUTION WIDTH 18.4 % (11.5-20.0); WHITE BLOOD COUNT 9.6 Th/cmm (4.8-10.8)
[2016-10-19 05:26] LABS: PLATELET COUNT 303 Th/cmm (150-400)
[2016-10-19 05:28] LABS: ANION GAP 14.2 (7.0-16.0); BUN - UREA NITROGEN 49 mg/dL (7-25); BUN/CREATININE RATIO 24.5; CALCIUM SERUM 8.8 mg/dL (8.6-10.3); CARBON DIOXIDE 31.6 mEq/L (21.0-31.0); CHLORIDE 97 mEq/L (98-107); GLUCOSE 219 mg/dL (70-105); POTASSIUM SERUM 4.8 mEq/L (3.5-5.1); SODIUM SERUM 138 mEq/L (136-145)
[2016-10-19] MEDS: INSULIN ASPART, RECOMBINANT 100 UNITS/ML SUBQ SCH ×4 (06:57→20:29)
[2016-10-19] MEDS: Levothyroxine 0.05 Mg Tab PO SCH (06:58)
[2016-10-19] MEDS: Chlorhexidine Gluconate 0.12% 15mL Mouthwash MM SCH (08:40)
[2016-10-19] MEDS: Pantoprazole 40 mg/Packet NG SCH (09:21)
[2016-10-19] MEDS: Multivitamin Tab PO SCH (09:21)
[2016-10-19] MEDS: Lactobacillus Rhamnosus 10 Billion CFU Capsule PO SCH (09:21)
[2016-10-19] MEDS: Ferrous Sulfate 300 MG/5 ML UDC PO SCH ×2 (09:21→16:27)
[2016-10-19] MEDS: Menthol/Zinc Oxide Oint 113gm Tube TP SCH ×3 (09:22→20:35)
--- NOTE | 2016-10-19 10:51 | Diagnostic Imaging Report ---
History: Dyspnea Comparison: 10/15/2016 Findings: Endotracheal tube tip is at the delmy and should be withdrawn 3 cm. NG tube is present with its tip coiled in the stomach. The heart size is borderline. There are pacer leads in the right atrium and right ventricle. Mild bilateral bronchovascular prominence. Impression: Compared to previous exam continuing evidence of mild pulmonary edema. Note is again made that the endotracheal tube tip is near the delmy and should be withdrawn 3 to 4 cm.
[2016-10-19 17:35] LABS: HCO3 37.7 mmol/L (20.0-26.0); pH 7.46 (7.35-7.45)
[2016-10-19 17:36] LABS: ABG SOURCE Arterial; BE(B) 11.9 mmol/L (-3.0-3.0); CRITICAL VALUES REPORTED BY SH; FIO2 40
[2016-10-19] MEDS: Atorvastatin Calcium 10 MG TAB PO SCH (20:28)
--- NOTE | 2016-10-19 21:40 | General Progress Note ---
Subjective - Review of Systems Service Date: 10/19/16 Subjective: Patient extubated this afternoon doing ok breathing fine Objective - Results Result Diagrams: 10/19/16 04:38 10/19/16 04:38 Recent Labs: Laboratory Last Values WBC 9.6 Th/cmm (4.8-10.8) 10/19/16 04:38 RBC 4.01 Mil/cmm (3.80-5.20) 10/19/16 04:38 Hgb 10.5 gm/dL (11.7-16.1) L 10/19/16 04:38 Hct 32.3 % (35.0-45.0) L 10/19/16 04:38 MCV 80.8 fl (81-100) L 10/19/16 04:38 MCH 26.3 pg (27.0-31.0) L 10/19/16 04:38 MCHC Differential 32.6 pg (28.0-36.0) 10/19/16 04:38 RDW 18.4 % (11.5-20.0) 10/19/16 04:38 Plt Count 303 Th/cmm (150-400) D 10/19/16 04:38 MPV 8.6 fl 10/19/16 04:38 Neutrophils % 78.2 % (40.0-80.0) 10/19/16 04:38 Band Neutrophils % 1 % (0-10) 10/12/16 04:40 Lymphocytes % 10.3 % (20.0-50.0) L 10/19/16 04:38 Monocytes % 5.4 % (2.0-10.0) 10/19/16 04:38 Eosinophils % 5.3 % (0.0-5.0) H 10/19/16 04:38 Basophils % 0.8 % (0.0-2.0) 10/19/16 04:38 Neutrophils (Manual) 66 % (40-80) 10/15/16 05:15 Lymphocytes 20 % (20-50) 10/15/16 05:15 Monocytes 11 % (2-10) H 10/15/16 05:15 Eosinophils 3 % (0-5) 10/15/16 05:15 Platelet Estimate ADEQUATE (NORMAL) 10/15/16 05:15 Platelet Morphology GIANT PLATELETS SEEN (NORMAL) 10/15/16 05:15 Polychromasia 1+ 10/10/16 06:47 Anisocytosis 1+ 10/12/16 04:40 Microcytosis 1+ 10/15/16 05:15 RBC Morph Micro Appear ABNORMAL (NORMAL) 10/15/16 05:15 PT 12.6 SECONDS (9.5-11.5) H 10/08/16 05:20 INR 1.25 (0.5-1.4) 10/08/16 05:20 Specimen Source Arterial 10/19/16 17:20 Sample Site RB 10/19/16 17:20 pH 7.46 (7.35-7.45) H 10/19/16 17:20 pCO2 53.0 mmHg (35.0-45.0) H 10/19/16 17:20 pO2 103.0 mmHg (80.0-100.0) H 10/19/16 17:20 HCO3 37.7 mmol/L (20.0-26.0) H 10/19/16 17:20 Base Excess 11.9 mmol/L (-3.0-3.0) H 10/19/16 17:20 O2 Saturation 98.0 % (92.0-100.0) 10/19/16 17:20 Will Test NA 10/19/16 17:20 Vent Rate NA 10/19/16 17:20 Inspired O2 40 10/19/16 17:20 Tidal Volume NA 10/19/16 17:20 PEEP NA 10/19/16 17:20 Pressure (ins/psv/peep) NA 10/19/16 17:20 Critical Value SH 10/19/16 17:20 Sodium 138 mEq/L (136-145) 10/19/16 04:38 Potassium 4.8 mEq/L (3.5-5.1) 10/19/16 04:38 Chloride 97 mEq/L (98-107) L 10/19/16 04:38 Carbon Dioxide 31.6 mEq/L (21.0-31.0) H 10/19/16 04:38 Anion Gap 14.2 (7.0-16.0) 10/19/16 04:38 BUN 49 mg/dL (7-25) H 10/19/16 04:38 Creatinine 2.0 mg/dL (0.6-1.2) H 10/19/16 04:38 Est GFR ( Amer) TNP 10/19/16 04:38 Est GFR (Non-Af Amer) TNP 10/19/16 04:38 BUN/Creatinine Ratio 24.5 10/19/16 04:38 Glucose 219 mg/dL (70-105) H 10/19/16 04:38 POC Glucose 183 MG/DL (70 - 105) H 10/19/16 20:26 Hemoglobin A1c % 5.7 % (4.0-6.0) 10/03/16 20:08 Calcium 8.8 mg/dL (8.6-10.3) 10/19/16 04:38 Phosphorus 4.4 mg/dL (2.5-5.0) 10/05/16 06:29 Magnesium 2.1 mg/dL (1.9-2.7) 10/12/16 04:40 Iron 20 ug/dL (27-139) L 10/05/16 06:29 TIBC 237 ug/dL (250-450) L 10/05/16 06:29 Iron Saturation 8 % (15-55) L 10/05/16 06:29 Unsaturated IBC 217 ug/dL (118-369) 10/05/16 06:29 Total Bilirubin 0.5 mg/dL (0.3-1.0) 10/16/16 04:35 AST 27 U/L (13-39) 10/16/16 04:35 ALT 19 U/L (7-52) 10/16/16 04:35 Alkaline Phosphatase 67 U/L (34-104) 10/16/16 04:35 Troponin I 0.01 ng/mL (0.01-0.05) 10/03/16 20:08 B-Natriuretic Peptide 3330.0 pg/mL (5.0-100.0) H 10/19/16 04:38 Total Protein 6.1 gm/dL (6.0-8.3) 10/16/16 04:35 Albumin 2.6 gm/dL (3.7-5.3) L 10/16/16 04:35 Globulin 3.5 gm/dL 10/16/16 04:35 Albumin/Globulin Ratio 0.7 (1.0-1.8) L 10/16/16 04:35 Triglycerides 106 mg/dL (<150) 10/03/16 20:08 Cholesterol 97 mg/dL (<200) 10/03/16 20:08 LDL Cholesterol Direct 42 mg/dL (75-193) L 10/03/16 20:08 HDL Cholesterol 38 mg/dL (23-92) 10/03/16 20:08 Carcinoembryonic Ag 4.1 ng/mL (0.0-4.7) 10/10/16 06:47 TSH 14.69 uIU/ml (0.34-5.60) H 10/03/16 20:08 PTH Intact 147 pg/mL (15-65) H 10/06/16 07:20 Urine Source CLEAN C 10/05/16 10:45 Urine Color YELLOW 10/05/16 10:45 Urine Clarity SL. CLOUDY (CLEAR) 10/05/16 10:45 Urine pH 7.5 10/05/16 10:45 Ur Specific [place] 1.020 (1.005-1.030) 10/05/16 10:45 Urine Protein TRACE mg/dL (NEGATIVE) 10/05/16 10:45 Urine Glucose (UA) NEGATIVE mg/dL (NEGATIVE) 10/05/16 10:45 Urine Ketones NEGATIVE mg/dL (NEGATIVE) 10/05/16 10:45 Urine Blood TRACE (NEGATIVE) 10/05/16 10:45 Urine Nitrate NEGATIVE (NEGATIVE) 10/05/16 10:45 Urine Bilirubin NEGATIVE (NEGATIVE) 10/05/16 10:45 Urine Urobilinogen 0.2 E.U./dL (0.2 - 1.0) 10/05/16 10:45 Ur Leukocyte Esterase NEGATIVE (NEGATIVE) 10/05/16 10:45 Urine RBC 0-2 /hpf (0-5) 10/05/16 10:45 Urine WBC 0-2 /hpf (0-5) 10/05/16 10:45 Ur Epithelial Cells RARE /lpf (FEW) 10/05/16 10:45 Urine Bacteria NONE SEEN /hpf (NONE SEEN) 10/05/16 10:45 U Random Total Protein 34.0 mg/dL 10/06/16 06:00 Urine Collection Time 24 hours 10/06/16 06:00 Urine Total Volume 1850 ml 10/06/16 06:00 Urine Creatinine 23.0 mg/dl (28.0-217.0) L 10/06/16 06:00 Creat Clearance 24 Hr 18 ml/min (88.00-128.00) L 10/06/16 06:00 U Tot Protein 24h, Calc 629.0 mg/24 hr (0-165) H 10/06/16 06:00 Body Surface Area 1.47 10/06/16 06:00 Stool Occult Blood POSITIVE (NEGATIVE) 10/19/16 09:00 RPR NONREACTIVE (NONREACTIVE) 10/03/16 20:08 Blood Type AB POSITIVE 10/12/16 09:40 Antibody Screen NEGATIVE 10/12/16 09:40 Crossmatch See Detail 10/12/16 09:40 - Physical Exam Vitals and I&O: Vital Signs Temp 99.1 F 10/19/16 20:00 Pulse 70 10/19/16 21:00 Resp 18 10/19/16 21:00 BP 133/43 10/19/16 21:00 Pulse Ox 100 10/19/16 21:00 Intake & Output 10/19/16 10/19/16 10/20/16 06:59 18:59 06:59 Intake Total 620 770 Output Total 300 350 Balance 320 420 Intake: Intake, IV Amount 100 50 Piperacillin Sodium/ 100 50 Tazobact 2.25 gm In Sodium Chloride 0.9% 50 ml @ 100 mls/hr IV Q8HR [facility] Rx#:[id number] Oral 0 Tube Feeding 420 420 Other 100 300 Output: Urine 300 350 Other: # Bowel Movements 2 2 Stool Characteristics Liquid Soft Green Brown Active Medications: Current Medications Acetaminophen (Tylenol) 650 mg PO Q6HR PRN PRN Reason: Pain (Mild) Stop: 12/03/16 08:08 Last Admin: 10/08/16 02:40 Dose: 650 mg Acetylcysteine (Mucomyst 20%) 2 ml HHN Q4HRT [facility] Stop: 12/09/16 14:59 Last Admin: 10/19/16 19:40 Dose: 2 ml Albuterol/Ipratropium (Duoneb Neb) 3 ml HHN Q2HR PRN PRN Reason: Shortness of Breath Stop: 12/03/16 08:08 Albuterol/Ipratropium (Duoneb Neb) 3 ml HHN Q4HRT [facility] Stop: 12/09/16 14:59 Last Admin: 10/19/16 19:40 Dose: 3 ml Amlodipine Besylate (Norvasc) 10 mg PO DAILY [facility] Stop: 12/14/16 08:59 Last Admin: 10/19/16 09:21 Dose: 10 mg Atorvastatin Calcium (Lipitor) 10 mg PO HS [facility] PRN Reason: Protocol Stop: 12/03/16 20:59 Last Admin: 10/19/16 20:28 Dose: 10 mg Calamine/Phenol (Calmoseptine) 1 appl TP QID PRN PRN Reason: Skin Irritation Stop: 12/15/16 18:39 Calamine/Phenol (Calmoseptine) 1 appl TP QID [facility] Stop: 12/15/16 20:59 Last Admin: 10/19/16 20:35 Dose: Not Given Calcitriol (Rocaltrol) 0.25 mcg PO DAILY [facility] Stop: 12/05/16 08:59 Last Admin: 10/19/16 09:22 Dose: 0.25 mcg Carvedilol (Coreg) 25 mg PO BID [facility] Stop: 12/03/16 08:59 Last Admin: 10/19/16 16:38 Dose: Not Given Clonidine HCl (Catapres) 0.2 mg PO Q8HR PRN PRN Reason: SBP GREATER THAN 160 Stop: 12/13/16 14:59 Donepezil HCl (Aricept) 5 mg PO HS [facility] Stop: 12/03/16 20:59 Last Admin: 10/19/16 20:28 Dose: 5 mg Ferrous Sulfate (Iron) 300 mg PO BID [facility] Stop: 12/04/16 16:59 Last Admin: 10/19/16 16:27 Dose: 300 mg Folic Acid (Folate) 1 mg PO DAILY [facility] Stop: 12/05/16 08:59 Last Admin: 10/19/16 09:21 Dose: 1 mg Hydroxyzine HCl (Atarax) 25 mg PO QID PRN; Protocol PRN Reason: Itching Stop: 12/17/16 13:38 Last Admin: 10/19/16 09:22 Dose: 25 mg Piperacillin Sod/Tazobactam (Sod 2.25 gm/ Sodium Chloride) 50 mls @ 100 mls/hr IV Q8HR [facility] Stop: 12/11/16 14:59 Last Admin: 10/19/16 20:29 Dose: 100 mls/hr Insulin Aspart (Novolog) 0 units SUBQ ACHS [facility] PRN Reason: Protocol Stop: 12/03/16 07:29 Last Admin: 10/19/16 20:29 Dose: 2 unit Lactobacillus Rhamnosus (Culturelle) 1 each PO DAILY [facility] Stop: 12/12/16 08:59 Last Admin: 10/19/16 09:21 Dose: 1 each Levothyroxine Sodium (Synthroid) 0.05 mg PO QDAC [facility] Stop: 12/04/16 07:29 Last Admin: 10/19/16 06:58 Dose: 0.05 mg Lorazepam (Ativan) 0.5 mg IVP Q4H PRN; Protocol PRN Reason: Agitation Stop: 12/10/16 12:45 Miscellaneous (Probiotic Screen) 1 ea MC PRN PRN PRN Reason: PROTOCOL Stop: 12/11/16 15:45 Multivitamins/Vitamin C (Theragran) 1 tab PO DAILY [facility] Stop: 12/03/16 08:59 Last Admin: 10/19/16 09:21 Dose: 1 tab Pantoprazole Sodium (Protonix) 40 mg NG DAILY [facility] Stop: 12/03/16 08:59 Last Admin: 10/19/16 09:21 Dose: 40 mg Cardiovascular: Regular rate Lungs: Other (rales better) Abdomen: Soft, no Tender - Procedures Procedures: Procedures Procedure Code Date COLONOSCOPY AND BIOPSY 43322 10/04/16 EGD DIAGNOSTIC BRUSH WASH 63816 10/04/16 EXCISION OF LARGE INTESTINE, ENDO, DIAGN [id number] 10/04/16 INSERT EMERGENCY AIRWAY 31586 10/04/16 INSERTION OF ENDOTRACHEAL AIRWAY INTO TRACHEA, VIA OPENING [id number] 10/04/16 INSPECTION OF UPPER INTESTINAL TRACT, ENDO [id number] 10/04/16 RESPIRATORY VENTILATION, GREATER THAN 96 CONSECUTIVE HOURS [id number] 10/04/16 VENT MGMT INPAT INIT DAY 36968 10/04/16 VENT MGMT INPAT SUBQ DAY 22860 10/04/16 Assessment/Plan - Assessment Assessment: Pnemonia CHF CKD HTN Hypothyroidism Hyperlipidemia Diabetes Old CVA Psych disorder Debitly Positive stool OB Colon stricture - Plan Plan: Pt extubated Continue oxygen support Continue Zosyn Continue Lasix Monitor vitals and I/O Monitor pulmonary and renal function Pulmonary and Neprhology on board Tube feeding
[2016-10-20] MEDS: Albuterol/Ipratropium Neb 3 ML AERS HHN SCH ×6 (02:39→22:06)
[2016-10-20] MEDS: Levothyroxine 0.05 Mg Tab PO SCH (06:41)
[2016-10-20] MEDS: INSULIN ASPART, RECOMBINANT 100 UNITS/ML SUBQ SCH ×4 (06:42→21:06)
[2016-10-20] MEDS: Pantoprazole 40 mg/Packet NG SCH (08:34)
[2016-10-20] MEDS: Ferrous Sulfate 300 MG/5 ML UDC PO SCH ×2 (08:35→16:09)
[2016-10-20] MEDS: Lactobacillus Rhamnosus 10 Billion CFU Capsule PO SCH (08:35)
[2016-10-20] MEDS: Multivitamin Tab PO SCH (08:35)
[2016-10-20] MEDS: Menthol/Zinc Oxide Oint 113gm Tube TP SCH ×4 (08:38→20:58)
[2016-10-20 10:27] LABS: ABG SOURCE Arterial; BE(B) 10.6 mmol/L (-3.0-3.0); CRITICAL VALUES REPORTED BY PW; FIO2 24; HCO3 37.4 mmol/L (20.0-26.0); pH 7.41 (7.35-7.45)
[2016-10-20 11:47] LABS: ABG SOURCE Arterial; HCO3 37.9 mmol/L (20.0-26.0); pH 7.36 (7.35-7.45)
[2016-10-20 11:48] LABS: CRITICAL VALUES REPORTED BY PW; FIO2 40
[2016-10-20 14:44] LABS: ABG SOURCE Arterial; BE(B) 11.1 mmol/L (-3.0-3.0); pH 7.41 (7.35-7.45)
[2016-10-20 14:45] LABS: CRITICAL VALUES REPORTED BY PW; FIO2 40; MECH RATE 12; PS 6
--- NOTE | 2016-10-20 20:24 | General Progress Note ---
Subjective - Review of Systems Service Date: 10/20/16 Subjective: Patient was put on BIPAP per pul due to elevated CO2 Objective - Results Result Diagrams: 10/19/16 04:38 10/19/16 04:38 Recent Labs: Laboratory Last Values WBC 9.6 Th/cmm (4.8-10.8) 10/19/16 04:38 RBC 4.01 Mil/cmm (3.80-5.20) 10/19/16 04:38 Hgb 10.5 gm/dL (11.7-16.1) L 10/19/16 04:38 Hct 32.3 % (35.0-45.0) L 10/19/16 04:38 MCV 80.8 fl (81-100) L 10/19/16 04:38 MCH 26.3 pg (27.0-31.0) L 10/19/16 04:38 MCHC Differential 32.6 pg (28.0-36.0) 10/19/16 04:38 RDW 18.4 % (11.5-20.0) 10/19/16 04:38 Plt Count 303 Th/cmm (150-400) D 10/19/16 04:38 MPV 8.6 fl 10/19/16 04:38 Neutrophils % 78.2 % (40.0-80.0) 10/19/16 04:38 Band Neutrophils % 1 % (0-10) 10/12/16 04:40 Lymphocytes % 10.3 % (20.0-50.0) L 10/19/16 04:38 Monocytes % 5.4 % (2.0-10.0) 10/19/16 04:38 Eosinophils % 5.3 % (0.0-5.0) H 10/19/16 04:38 Basophils % 0.8 % (0.0-2.0) 10/19/16 04:38 Neutrophils (Manual) 66 % (40-80) 10/15/16 05:15 Lymphocytes 20 % (20-50) 10/15/16 05:15 Monocytes 11 % (2-10) H 10/15/16 05:15 Eosinophils 3 % (0-5) 10/15/16 05:15 Platelet Estimate ADEQUATE (NORMAL) 10/15/16 05:15 Platelet Morphology GIANT PLATELETS SEEN (NORMAL) 10/15/16 05:15 Polychromasia 1+ 10/10/16 06:47 Anisocytosis 1+ 10/12/16 04:40 Microcytosis 1+ 10/15/16 05:15 RBC Morph Micro Appear ABNORMAL (NORMAL) 10/15/16 05:15 PT 12.6 SECONDS (9.5-11.5) H 10/08/16 05:20 INR 1.25 (0.5-1.4) 10/08/16 05:20 Specimen Source Arterial 10/20/16 14:18 Sample Site LB 10/20/16 14:18 pH 7.41 (7.35-7.45) 10/20/16 14:18 pCO2 60.0 mmHg (35.0-45.0) H* 10/20/16 14:18 pO2 130.0 mmHg (80.0-100.0) H 10/20/16 14:18 HCO3 38.0 mmol/L (20.0-26.0) H 10/20/16 14:18 Base Excess 11.1 mmol/L (-3.0-3.0) H 10/20/16 14:18 O2 Saturation 99.0 % (92.0-100.0) 10/20/16 14:18 Will Test NA 10/19/16 17:20 Vent Rate 12 10/20/16 14:18 Inspired O2 40 10/20/16 14:18 Tidal Volume NA 10/19/16 17:20 PEEP NA 10/19/16 17:20 Pressure (ins/psv/peep) 6 10/20/16 14:18 Critical Value PW 10/20/16 14:18 Sodium 138 mEq/L (136-145) 10/19/16 04:38 Potassium 4.8 mEq/L (3.5-5.1) 10/19/16 04:38 Chloride 97 mEq/L (98-107) L 10/19/16 04:38 Carbon Dioxide 31.6 mEq/L (21.0-31.0) H 10/19/16 04:38 Anion Gap 14.2 (7.0-16.0) 10/19/16 04:38 BUN 49 mg/dL (7-25) H 10/19/16 04:38 Creatinine 2.0 mg/dL (0.6-1.2) H 10/19/16 04:38 Est GFR ( Amer) TNP 10/19/16 04:38 Est GFR (Non-Af Amer) TNP 10/19/16 04:38 BUN/Creatinine Ratio 24.5 10/19/16 04:38 Glucose 219 mg/dL (70-105) H 10/19/16 04:38 POC Glucose 153 MG/DL (70 - 105) H 10/20/16 15:51 Hemoglobin A1c % 5.7 % (4.0-6.0) 10/03/16 20:08 Calcium 8.8 mg/dL (8.6-10.3) 10/19/16 04:38 Phosphorus 4.4 mg/dL (2.5-5.0) 10/05/16 06:29 Magnesium 2.1 mg/dL (1.9-2.7) 10/12/16 04:40 Iron 20 ug/dL (27-139) L 10/05/16 06:29 TIBC 237 ug/dL (250-450) L 10/05/16 06:29 Iron Saturation 8 % (15-55) L 10/05/16 06:29 Unsaturated IBC 217 ug/dL (118-369) 10/05/16 06:29 Total Bilirubin 0.5 mg/dL (0.3-1.0) 10/16/16 04:35 AST 27 U/L (13-39) 10/16/16 04:35 ALT 19 U/L (7-52) 10/16/16 04:35 Alkaline Phosphatase 67 U/L (34-104) 10/16/16 04:35 Troponin I 0.01 ng/mL (0.01-0.05) 10/03/16 20:08 B-Natriuretic Peptide 3330.0 pg/mL (5.0-100.0) H 10/19/16 04:38 Total Protein 6.1 gm/dL (6.0-8.3) 10/16/16 04:35 Albumin 2.6 gm/dL (3.7-5.3) L 10/16/16 04:35 Globulin 3.5 gm/dL 10/16/16 04:35 Albumin/Globulin Ratio 0.7 (1.0-1.8) L 10/16/16 04:35 Triglycerides 106 mg/dL (<150) 10/03/16 20:08 Cholesterol 97 mg/dL (<200) 10/03/16 20:08 LDL Cholesterol Direct 42 mg/dL (75-193) L 10/03/16 20:08 HDL Cholesterol 38 mg/dL (23-92) 10/03/16 20:08 Carcinoembryonic Ag 4.1 ng/mL (0.0-4.7) 10/10/16 06:47 TSH 14.69 uIU/ml (0.34-5.60) H 10/03/16 20:08 PTH Intact 147 pg/mL (15-65) H 10/06/16 07:20 Urine Source CLEAN C 10/05/16 10:45 Urine Color YELLOW 10/05/16 10:45 Urine Clarity SL. CLOUDY (CLEAR) 10/05/16 10:45 Urine pH 7.5 10/05/16 10:45 Ur Specific [place] 1.020 (1.005-1.030) 10/05/16 10:45 Urine Protein TRACE mg/dL (NEGATIVE) 10/05/16 10:45 Urine Glucose (UA) NEGATIVE mg/dL (NEGATIVE) 10/05/16 10:45 Urine Ketones NEGATIVE mg/dL (NEGATIVE) 10/05/16 10:45 Urine Blood TRACE (NEGATIVE) 10/05/16 10:45 Urine Nitrate NEGATIVE (NEGATIVE) 10/05/16 10:45 Urine Bilirubin NEGATIVE (NEGATIVE) 10/05/16 10:45 Urine Urobilinogen 0.2 E.U./dL (0.2 - 1.0) 10/05/16 10:45 Ur Leukocyte Esterase NEGATIVE (NEGATIVE) 10/05/16 10:45 Urine RBC 0-2 /hpf (0-5) 10/05/16 10:45 Urine WBC 0-2 /hpf (0-5) 10/05/16 10:45 Ur Epithelial Cells RARE /lpf (FEW) 10/05/16 10:45 Urine Bacteria NONE SEEN /hpf (NONE SEEN) 10/05/16 10:45 U Random Total Protein 34.0 mg/dL 10/06/16 06:00 Urine Collection Time 24 hours 10/06/16 06:00 Urine Total Volume 1850 ml 10/06/16 06:00 Urine Creatinine 23.0 mg/dl (28.0-217.0) L 10/06/16 06:00 Creat Clearance 24 Hr 18 ml/min (88.00-128.00) L 10/06/16 06:00 U Tot Protein 24h, Calc 629.0 mg/24 hr (0-165) H 10/06/16 06:00 Body Surface Area 1.47 10/06/16 06:00 Stool Occult Blood POSITIVE (NEGATIVE) 10/19/16 09:00 RPR NONREACTIVE (NONREACTIVE) 10/03/16 20:08 Blood Type AB POSITIVE 10/12/16 09:40 Antibody Screen NEGATIVE 10/12/16 09:40 Crossmatch See Detail 10/12/16 09:40 - Physical Exam Vitals and I&O: Vital Signs Temp 98 F 10/20/16 18:00 Pulse 63 10/20/16 18:00 Resp 12 10/20/16 19:12 BP 133/43 10/20/16 18:00 Pulse Ox 100 10/20/16 19:12 Intake & Output 10/20/16 10/20/16 10/21/16 06:59 18:59 06:59 Intake Total 540 770 Output Total 600 350 Balance -60 420 Weight (lbs) 71.668 kg Intake: Tube Feeding 420 420 Other 120 350 Output: Urine 600 350 Other: # Bowel Movements 1 2 Stool Characteristics Soft Soft Brown Brown Active Medications: Current Medications Acetaminophen (Tylenol) 650 mg PO Q6HR PRN PRN Reason: Pain (Mild) Stop: 12/03/16 08:08 Last Admin: 10/08/16 02:40 Dose: 650 mg Acetylcysteine (Mucomyst 20%) 2 ml HHN Q4HRT [facility] Stop: 12/09/16 14:59 Last Admin: 10/20/16 19:12 Dose: 2 ml Albuterol/Ipratropium (Duoneb Neb) 3 ml HHN Q2HR PRN PRN Reason: Shortness of Breath Stop: 12/03/16 08:08 Albuterol/Ipratropium (Duoneb Neb) 3 ml HHN Q4HRT [facility] Stop: 12/09/16 14:59 Last Admin: 10/20/16 19:12 Dose: 3 ml Amlodipine Besylate (Norvasc) 10 mg PO DAILY [facility] Stop: 12/14/16 08:59 Last Admin: 10/20/16 08:35 Dose: Not Given Atorvastatin Calcium (Lipitor) 10 mg PO HS [facility] PRN Reason: Protocol Stop: 12/03/16 20:59 Last Admin: 10/19/16 20:28 Dose: 10 mg Calamine/Phenol (Calmoseptine) 1 appl TP QID PRN PRN Reason: Skin Irritation Stop: 12/15/16 18:39 Calamine/Phenol (Calmoseptine) 1 appl TP QID [facility] Stop: 12/15/16 20:59 Last Admin: 10/20/16 16:09 Dose: 1 appl Calcitriol (Rocaltrol) 0.25 mcg PO DAILY [facility] Stop: 12/05/16 08:59 Last Admin: 10/20/16 08:34 Dose: 0.25 mcg Carvedilol (Coreg) 6.25 mg PO DAILY [facility] Stop: 12/20/16 08:59 Clonidine HCl (Catapres) 0.2 mg PO Q8HR PRN PRN Reason: SBP GREATER THAN 160 Stop: 12/13/16 14:59 Donepezil HCl (Aricept) 5 mg PO HS [facility] Stop: 12/03/16 20:59 Last Admin: 10/19/16 20:28 Dose: 5 mg Ferrous Sulfate (Iron) 300 mg PO BID [facility] Stop: 12/04/16 16:59 Last Admin: 10/20/16 16:09 Dose: 300 mg Folic Acid (Folate) 1 mg PO DAILY [facility] Stop: 12/05/16 08:59 Last Admin: 10/20/16 08:36 Dose: 1 mg Hydroxyzine HCl (Atarax) 25 mg PO QID PRN; Protocol PRN Reason: Itching Stop: 12/17/16 13:38 Last Admin: 10/20/16 15:45 Dose: 25 mg Dextrose/Sodium Chloride (D5-0.45ns) 1,000 mls @ 60 mls/hr IV .[id number] [facility] Stop: 12/19/16 17:44 Insulin Aspart (Novolog) 0 units SUBQ ACHS [facility] PRN Reason: Protocol Stop: 12/03/16 07:29 Last Admin: 10/20/16 16:10 Dose: 2 unit Lactobacillus Rhamnosus (Culturelle) 1 each PO DAILY [facility] Stop: 12/12/16 08:59 Last Admin: 10/20/16 08:35 Dose: 1 each Levothyroxine Sodium (Synthroid) 0.05 mg PO QDAC [facility] Stop: 12/04/16 07:29 Last Admin: 10/20/16 06:41 Dose: 0.05 mg Miscellaneous (Probiotic Screen) 1 ea MC PRN PRN PRN Reason: PROTOCOL Stop: 12/11/16 15:45 Multivitamins/Vitamin C (Theragran) 1 tab PO DAILY [facility] Stop: 12/03/16 08:59 Last Admin: 10/20/16 08:35 Dose: 1 tab Pantoprazole Sodium (Protonix) 40 mg IVP BID [facility] Stop: 12/19/16 16:59 Last Admin: 10/20/16 16:09 Dose: 40 mg Cardiovascular: Regular rate Lungs: Other (rales) Abdomen: Soft, no Tender Neurological: no Other (conused) - Procedures Procedures: Procedures Procedure Code Date COLONOSCOPY AND BIOPSY 81620 10/04/16 EGD DIAGNOSTIC BRUSH WASH 74702 10/04/16 EXCISION OF LARGE INTESTINE, ENDO, DIAGN 8HOU6PM 10/04/16 INSERT EMERGENCY AIRWAY 08515 10/04/16 INSERTION OF ENDOTRACHEAL AIRWAY INTO TRACHEA, VIA OPENING [id number] 10/04/16 INSPECTION OF UPPER INTESTINAL TRACT, ENDO [id number] 10/04/16 RESPIRATORY VENTILATION, GREATER THAN 96 CONSECUTIVE HOURS [id number] 10/04/16 VENT MGMT INPAT INIT DAY 93032 10/04/16 VENT MGMT INPAT SUBQ DAY 49326 10/04/16 Assessment/Plan - Assessment Assessment: Pnemonia Acute respiratory failure CHF CKD HTN Hypothyroidism Hyperlipidemia Diabetes 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
[2016-10-20] MEDS: Atorvastatin Calcium 10 MG TAB PO SCH (20:57)
[2016-10-20] MEDS: D5-0.45NS 1,000 ML IV SCH (21:09)
[2016-10-21] MEDS: Albuterol/Ipratropium Neb 3 ML AERS HHN SCH ×6 (02:12→22:31)
[2016-10-21 05:06] LABS: % EOSINOPHILS 5.4 % (0.0-5.0)
[2016-10-21 05:25] LABS: % BASOPHILS 1.4 % (0.0-2.0); % LYMPHOCYTES 10.4 % (20.0-50.0); % MONOCYTES 4.2 % (2.0-10.0); % NEUTROPHILS 78.6 % (40.0-80.0); HEMATOCRIT 29.7 % (35.0-45.0); HEMOGLOBIN 9.6 gm/dL (11.7-16.1); MEAN CELL VOLUME 81.2 fl (81-100); MEAN CORPUSCULAR HEMOGLOBIN 26.1 pg (27.0-31.0); MEAN CORPUSCULAR HGB CONC 32.1 pg (28.0-36.0); MEAN PLATELET VOLUME 8.8 fl; PLATELET COUNT 321 Th/cmm (150-400); RED BLOOD COUNT 3.66 Mil/cmm (3.80-5.20); RED CELL DISTRIBUTION WIDTH 18.4 % (11.5-20.0)
[2016-10-21 05:35] LABS: ALB/GLOB RATIO 0.7 (1.0-1.8); ALKALINE PHOSPHATASE 64 U/L (34-104); ANION GAP 10.9 (7.0-16.0); BILIRUBIN,TOTAL 0.4 mg/dL (0.3-1.0); BUN - UREA NITROGEN 52 mg/dL (7-25); CALCIUM SERUM 8.7 mg/dL (8.6-10.3); CARBON DIOXIDE 31.1 mEq/L (21.0-31.0); CHLORIDE 102 mEq/L (98-107); GLUCOSE 233 mg/dL (70-105); SGOT 22 U/L (13-39); SGPT/ALT 18 U/L (7-52); SODIUM SERUM 139 mEq/L (136-145)
[2016-10-21 05:46] LABS: PROTHROMBIN TIME (TEST) 11.7 SECONDS (9.5-11.5)
[2016-10-21 05:47] LABS: INR 1.17 (0.5-1.4)
[2016-10-21] MEDS: INSULIN ASPART, RECOMBINANT 100 UNITS/ML SUBQ SCH ×4 (07:05→20:54)
[2016-10-21] MEDS: Levothyroxine 0.05 Mg Tab PO SCH (07:07)
[2016-10-21] MEDS: Ferrous Sulfate 300 MG/5 ML UDC PO SCH ×2 (09:20→16:55)
[2016-10-21] MEDS: Multivitamin Tab PO SCH (09:21)
[2016-10-21] MEDS: Lactobacillus Rhamnosus 10 Billion CFU Capsule PO SCH (09:21)
[2016-10-21] MEDS: Menthol/Zinc Oxide Oint 113gm Tube TP SCH ×4 (09:31→20:57)
[2016-10-21 09:42] LABS: pH 7.42 (7.35-7.45)
[2016-10-21 09:43] LABS: ABG SOURCE Arterial; BE(B) 9.4 mmol/L (-3.0-3.0); CRITICAL VALUES REPORTED BY PW; FIO2 30; HCO3 35.7 mmol/L (20.0-26.0); MECH RATE 12; PS 6
--- NOTE | 2016-10-21 11:52 | Diagnostic Imaging Report ---
CHEST X-RAY: AP view INDICATION: Shortness of breath COMPARISON: 10/19/2016 FINDINGS: The prior ET tube is been removed. NG tube is visualized curled proximally with tip along the distal stomach. Left chest wall pacemaker is stable. Increased interstitial lung markings are again noted. No focal consolidation or effusions. Heart size is normal. IMPRESSION: Interval extubation. Persistent increased interstitial lung markings which may reflect a mild degree of congestion.
[2016-10-21] MEDS: D5-0.45NS 1,000 ML IV SCH (13:05)
--- NOTE | 2016-10-21 18:12 | Operative Report ---
GASTROINTESTINAL PROCEDURE NAME OF PROCEDURE: PEG tube placement. REFERRING PHYSICIAN: Dr. Barragan, REASON FOR PROCEDURE: Dysphagia, anorexia. CONSENT: Risks, benefits, alternatives, nature, indication, possible outcomes were discussed. Mentioned bleeding, infection, perforation, , disability, cardiopulmonary distress, arrest, missed lesions and cancers, need for surgery, cellulitis, malfunctioning feeding tube, patient pulling out the feeding tube. The patient's family expressed understanding and provided informed consent. PREOPERATIVE DIAGNOSES: Dysphagia, anorexia. POSTOPERATIVE DIAGNOSIS: PEG tube placement. MEDICATIONS: Ancef 1 gram by anesthesiologist. Medications provided by anesthesiologist due to the patient's respiratory failure. DESCRIPTION OF PROCEDURE: The patient was placed on her back. Upper endoscope was advanced from the mouth into the second portion of duodenum. Scope brought back in the stomach. NG tube was removed. Stomach was insufflated with air. Transillumination was seen in the left upper quadrant. The area was then prepped in the usual sterile fashion. Lidocaine 1% was used to anesthetize the area. We used a total of 3 mL. Trocar was advanced through the anterior abdominal wall and into the stomach lumen. On endoscope view, wire was passed through the catheter, captured with a snare, pulled out to the oral end of the patient. PEG tube was attached to the oral end of the wire. A small lateral incision was made at the entry site of the trocar. The wire was pulled into position pulling along with it the PEG tube. Gastroscope readvanced back in the stomach where the bumper was seen in satisfactory position. The scope was then removed. COMPLICATIONS: None. FINDINGS: PEG tube placement. RECOMMENDATIONS: 1. Use G-tube in 8 hours. 2. Check the residual every 6 hours and hold if greater than 100 mL. 3. Abdominal binder to protect the G-tube. Thank you for allowing me to participate. Please call me, if any questions. JOB# [id number]
--- NOTE | 2016-10-21 20:36 | General Progress Note ---
Subjective - Review of Systems Service Date: 10/21/16 Subjective: Patient was seen and examined patient seems more awake and able to answer question s/p G tube Objective - Results Result Diagrams: 10/21/16 04:26 10/21/16 04:26 Recent Labs: Laboratory Last Values WBC 10.0 Th/cmm (4.8-10.8) 10/21/16 04:26 RBC 3.66 Mil/cmm (3.80-5.20) L 10/21/16 04:26 Hgb 9.6 gm/dL (11.7-16.1) L 10/21/16 04:26 Hct 29.7 % (35.0-45.0) L 10/21/16 04:26 MCV 81.2 fl (81-100) 10/21/16 04:26 MCH 26.1 pg (27.0-31.0) L 10/21/16 04:26 MCHC Differential 32.1 pg (28.0-36.0) 10/21/16 04:26 RDW 18.4 % (11.5-20.0) 10/21/16 04:26 Plt Count 321 Th/cmm (150-400) 10/21/16 04:26 MPV 8.8 fl 10/21/16 04:26 Neutrophils % 78.6 % (40.0-80.0) 10/21/16 04:26 Band Neutrophils % 1 % (0-10) 10/12/16 04:40 Lymphocytes % 10.4 % (20.0-50.0) L 10/21/16 04:26 Monocytes % 4.2 % (2.0-10.0) 10/21/16 04:26 Eosinophils % 5.4 % (0.0-5.0) H 10/21/16 04:26 Basophils % 1.4 % (0.0-2.0) 10/21/16 04:26 Neutrophils (Manual) 66 % (40-80) 10/15/16 05:15 Lymphocytes 20 % (20-50) 10/15/16 05:15 Monocytes 11 % (2-10) H 10/15/16 05:15 Eosinophils 3 % (0-5) 10/15/16 05:15 Platelet Estimate ADEQUATE (NORMAL) 10/15/16 05:15 Platelet Morphology GIANT PLATELETS SEEN (NORMAL) 10/15/16 05:15 Polychromasia 1+ 10/10/16 06:47 Anisocytosis 1+ 10/12/16 04:40 Microcytosis 1+ 10/15/16 05:15 RBC Morph Micro Appear ABNORMAL (NORMAL) 10/15/16 05:15 PT 11.7 SECONDS (9.5-11.5) H 10/21/16 04:26 INR 1.17 (0.5-1.4) 10/21/16 04:26 PTT (Actin FS) 26.9 SECONDS (26.0-38.0) 10/21/16 04:26 Specimen Source Arterial 10/21/16 08:53 Sample Site LB 10/21/16 08:53 pH 7.42 (7.35-7.45) 10/21/16 08:53 pCO2 55.0 mmHg (35.0-45.0) H 10/21/16 08:53 pO2 119.0 mmHg (80.0-100.0) H 10/21/16 08:53 HCO3 35.7 mmol/L (20.0-26.0) H 10/21/16 08:53 Base Excess 9.4 mmol/L (-3.0-3.0) H 10/21/16 08:53 O2 Saturation 99.0 % (92.0-100.0) 10/21/16 08:53 Will Test NA 10/19/16 17:20 Vent Rate 12 10/21/16 08:53 Inspired O2 30 10/21/16 08:53 Tidal Volume NA 10/19/16 17:20 PEEP NA 10/19/16 17:20 Pressure (ins/psv/peep) 6 10/21/16 08:53 Critical Value PW 10/21/16 08:53 Sodium 139 mEq/L (136-145) 10/21/16 04:26 Potassium 5.0 mEq/L (3.5-5.1) 10/21/16 04:26 Chloride 102 mEq/L (98-107) 10/21/16 04:26 Carbon Dioxide 31.1 mEq/L (21.0-31.0) H 10/21/16 04:26 Anion Gap 10.9 (7.0-16.0) 10/21/16 04:26 BUN 52 mg/dL (7-25) H 10/21/16 04:26 Creatinine 2.0 mg/dL (0.6-1.2) H 10/21/16 04:26 Est GFR ( Amer) TNP 10/21/16 04:26 Est GFR (Non-Af Amer) TNP 10/21/16 04:26 BUN/Creatinine Ratio 26.0 10/21/16 04:26 Glucose 233 mg/dL (70-105) H 10/21/16 04:26 POC Glucose 263 MG/DL (70 - 105) H 10/21/16 16:42 Hemoglobin A1c % 5.7 % (4.0-6.0) 10/03/16 20:08 Calcium 8.7 mg/dL (8.6-10.3) 10/21/16 04:26 Phosphorus 4.4 mg/dL (2.5-5.0) 10/05/16 06:29 Magnesium 2.1 mg/dL (1.9-2.7) 10/12/16 04:40 Iron 20 ug/dL (27-139) L 10/05/16 06:29 TIBC 237 ug/dL (250-450) L 10/05/16 06:29 Iron Saturation 8 % (15-55) L 10/05/16 06:29 Unsaturated IBC 217 ug/dL (118-369) 10/05/16 06:29 Total Bilirubin 0.4 mg/dL (0.3-1.0) 10/21/16 04:26 AST 22 U/L (13-39) 10/21/16 04:26 ALT 18 U/L (7-52) 10/21/16 04:26 Alkaline Phosphatase 64 U/L (34-104) 10/21/16 04:26 Troponin I 0.01 ng/mL (0.01-0.05) 10/03/16 20:08 B-Natriuretic Peptide 3330.0 pg/mL (5.0-100.0) H 10/19/16 04:38 Total Protein 6.6 gm/dL (6.0-8.3) 10/21/16 04:26 Albumin 2.7 gm/dL (3.7-5.3) L 10/21/16 04:26 Globulin 3.9 gm/dL 10/21/16 04:26 Albumin/Globulin Ratio 0.7 (1.0-1.8) L 10/21/16 04:26 Triglycerides 106 mg/dL (<150) 10/03/16 20:08 Cholesterol 97 mg/dL (<200) 10/03/16 20:08 LDL Cholesterol Direct 42 mg/dL (75-193) L 10/03/16 20:08 HDL Cholesterol 38 mg/dL (23-92) 10/03/16 20:08 Carcinoembryonic Ag 4.1 ng/mL (0.0-4.7) 10/10/16 06:47 TSH 14.69 uIU/ml (0.34-5.60) H 10/03/16 20:08 PTH Intact 147 pg/mL (15-65) H 10/06/16 07:20 Urine Source CLEAN C 10/05/16 10:45 Urine Color YELLOW 10/05/16 10:45 Urine Clarity SL. CLOUDY (CLEAR) 10/05/16 10:45 Urine pH 7.5 10/05/16 10:45 Ur Specific [place] 1.020 (1.005-1.030) 10/05/16 10:45 Urine Protein TRACE mg/dL (NEGATIVE) 10/05/16 10:45 Urine Glucose (UA) NEGATIVE mg/dL (NEGATIVE) 10/05/16 10:45 Urine Ketones NEGATIVE mg/dL (NEGATIVE) 10/05/16 10:45 Urine Blood TRACE (NEGATIVE) 10/05/16 10:45 Urine Nitrate NEGATIVE (NEGATIVE) 10/05/16 10:45 Urine Bilirubin NEGATIVE (NEGATIVE) 10/05/16 10:45 Urine Urobilinogen 0.2 E.U./dL (0.2 - 1.0) 10/05/16 10:45 Ur Leukocyte Esterase NEGATIVE (NEGATIVE) 10/05/16 10:45 Urine RBC 0-2 /hpf (0-5) 10/05/16 10:45 Urine WBC 0-2 /hpf (0-5) 10/05/16 10:45 Ur Epithelial Cells RARE /lpf (FEW) 10/05/16 10:45 Urine Bacteria NONE SEEN /hpf (NONE SEEN) 10/05/16 10:45 U Random Total Protein 34.0 mg/dL 10/06/16 06:00 Urine Collection Time 24 hours 10/06/16 06:00 Urine Total Volume 1850 ml 10/06/16 06:00 Urine Creatinine 23.0 mg/dl (28.0-217.0) L 10/06/16 06:00 Creat Clearance 24 Hr 18 ml/min (88.00-128.00) L 10/06/16 06:00 U Tot Protein 24h, Calc 629.0 mg/24 hr (0-165) H 10/06/16 06:00 Body Surface Area 1.47 10/06/16 06:00 Stool Occult Blood POSITIVE (NEGATIVE) 10/19/16 09:00 RPR NONREACTIVE (NONREACTIVE) 10/03/16 20:08 Blood Type AB POSITIVE 10/12/16 09:40 Antibody Screen NEGATIVE 10/12/16 09:40 Crossmatch See Detail 10/12/16 09:40 - Physical Exam Vitals and I&O: Vital Signs Temp 98.5 F 10/21/16 17:00 Pulse 71 10/21/16 20:00 Resp 15 10/21/16 20:00 BP 98/49 10/21/16 20:00 Pulse Ox 99 10/21/16 20:00 Intake & Output 10/21/16 10/21/16 10/22/16 06:59 18:59 06:59 Intake Total 330 956 Output Total 250 300 Balance 80 656 Intake: Intake, IV Amount 956 D5-0.45NS 1,000 ml @ 60 956 mls/hr IV .[id number] [facility] Rx #:[id number] Oral 0 Tube Feeding 210 Other 120 Output: Urine 250 300 Other: # Bowel Movements 0 1 Stool Characteristics Soft Black Active Medications: Current Medications Acetaminophen (Tylenol) 650 mg PO Q6HR PRN PRN Reason: Pain (Mild) Stop: 12/03/16 08:08 Last Admin: 10/08/16 02:40 Dose: 650 mg Acetylcysteine (Mucomyst 20%) 2 ml HHN Q4HRT [facility] Stop: 12/09/16 14:59 Last Admin: 10/21/16 18:35 Dose: 2 ml Albuterol/Ipratropium (Duoneb Neb) 3 ml HHN Q2HR PRN PRN Reason: Shortness of Breath Stop: 12/03/16 08:08 Albuterol/Ipratropium (Duoneb Neb) 3 ml HHN Q4HRT [facility] Stop: 12/09/16 14:59 Last Admin: 10/21/16 18:35 Dose: 3 ml Amlodipine Besylate (Norvasc) 10 mg PO DAILY [facility] Stop: 12/14/16 08:59 Last Admin: 10/21/16 09:19 Dose: Not Given Atorvastatin Calcium (Lipitor) 10 mg PO HS [facility] PRN Reason: Protocol Stop: 12/03/16 20:59 Last Admin: 10/20/16 20:57 Dose: 10 mg Calamine/Phenol (Calmoseptine) 1 appl TP QID PRN PRN Reason: Skin Irritation Stop: 12/15/16 18:39 Calamine/Phenol (Calmoseptine) 1 appl TP QID [facility] Stop: 12/15/16 20:59 Last Admin: 10/21/16 16:54 Dose: 1 appl Calcitriol (Rocaltrol) 0.25 mcg PO DAILY [facility] Stop: 12/05/16 08:59 Last Admin: 10/21/16 09:20 Dose: Not Given Carvedilol (Coreg) 6.25 mg PO DAILY [facility] Stop: 12/20/16 08:59 Last Admin: 10/21/16 09:20 Dose: Not Given Clonidine HCl (Catapres) 0.2 mg PO Q8HR PRN PRN Reason: SBP GREATER THAN 160 Stop: 12/13/16 14:59 Donepezil HCl (Aricept) 5 mg PO HS [facility] Stop: 12/03/16 20:59 Last Admin: 10/20/16 20:57 Dose: 5 mg Ferrous Sulfate (Iron) 300 mg PO BID [facility] Stop: 12/04/16 16:59 Last Admin: 10/21/16 16:55 Dose: Not Given Folic Acid (Folate) 1 mg PO DAILY [facility] Stop: 12/05/16 08:59 Last Admin: 10/21/16 09:20 Dose: Not Given Hydroxyzine HCl (Atarax) 25 mg PO QID PRN; Protocol PRN Reason: Itching Stop: 12/17/16 13:38 Last Admin: 10/20/16 15:45 Dose: 25 mg Dextrose/Sodium Chloride (D5-0.45ns) 1,000 mls @ 60 mls/hr IV .[id number] [facility] Stop: 12/19/16 17:44 Last Admin: 10/21/16 13:05 Dose: 60 mls/hr Insulin Aspart (Novolog) 0 units SUBQ ACHS [facility] PRN Reason: Protocol Stop: 12/03/16 07:29 Last Admin: 10/21/16 17:00 Dose: Not Given Lactobacillus Rhamnosus (Culturelle) 1 each PO DAILY [facility] Stop: 12/12/16 08:59 Last Admin: 10/21/16 09:21 Dose: Not Given Levothyroxine Sodium (Synthroid) 0.05 mg PO QDAC [facility] Stop: 12/04/16 07:29 Last Admin: 10/21/16 07:07 Dose: Not Given Miscellaneous (Probiotic Screen) 1 ea MC PRN PRN PRN Reason: PROTOCOL Stop: 12/11/16 15:45 Multivitamins/Vitamin C (Theragran) 1 tab PO DAILY [facility] Stop: 12/03/16 08:59 Last Admin: 10/21/16 09:21 Dose: Not Given Pantoprazole Sodium (Protonix) 40 mg IVP BID [facility] Stop: 12/19/16 16:59 Last Admin: 10/21/16 16:54 Dose: 40 mg General: No acute distress Cardiovascular: Normal S1, Normal S2 Lungs: Clear to auscultation Abdomen: Soft, no Tender - Procedures Procedures: Procedures Procedure Code Date COLONOSCOPY AND BIOPSY 69733 10/04/16 EGD DIAGNOSTIC BRUSH WASH 74116 10/04/16 EXCISION OF LARGE INTESTINE, ENDO, DIAGN [id number] 10/04/16 INSERT EMERGENCY AIRWAY 51976 10/04/16 INSERTION OF ENDOTRACHEAL AIRWAY INTO [place]HEA, VIA OPENING [id number] 10/04/16 INSPECTION OF UPPER INTESTINAL TRACT, ENDO [id number] 10/04/16 RESPIRATORY VENTILATION, GREATER THAN 96 CONSECUTIVE HOURS [id number] 10/04/16 VENT MGMT INPAT INIT DAY 08912 10/04/16 VENT MGMT INPAT SUBQ DAY 29064 10/04/16 Assessment/Plan - Assessment Assessment: Pnemonia Acute respiratory failure CHF CKD HTN Hypothyroidism Hyperlipidemia Diabetes 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
[2016-10-21] MEDS: Atorvastatin Calcium 10 MG TAB PO SCH (20:53)
--- NOTE | 2016-12-25 03:55 | Discharge Summary ---
FINAL DIAGNOSES: 1. Acute respiratory failure, improving. 2. Altered mental status, slightly better. 3. Hyperkalemia, improved. 4. Pneumonia, improving. 5. Congestive heart failure. 6. Rectal bleed, improved. 7. Dysphagia, status post gastrostomy tube placement. 8. Psychiatric disorder. 9. Advanced dementia. 10. Hypertension. 11. ____. 12. Old cerebrovascular accident with late effect. 13. Generalized debility. HOSPITAL COURSE: This is a 76-year-old female with underlying history of multiple comorbidities, admitted through the [facility] for evaluation of altered mental status. The patient diagnosed with pneumonia, CHF, worsening renal failure. Pulmonology, nephrology, cardiology, neurology was consulted. The patient was started on antibiotics. The patient was on multiple psych meds, which were held. Psych also followed the patient. The patient was given gentle hydrations, blood sugar, vitals were monitored. The patient was noticed to have a worsening pulmonary condition due to acute respiratory failure, the patient was intubated, transferred to ICU, also has severe electrolyte imbalance, which was corrected. The patient was noticed to have anemia, ____ underwent colonoscopy, associated colonic stricture. General surgery was consulted, no further surgical intervention was identified ____. The patient was started on diet, tolerated well. The patient appeared to have some problem with the swallowing, speech therapy evaluation. The patient was recommended alternative means of nutrition. GI ____ discussed with the daughter, subsequently the patient underwent a G-tube placement, started on feeding, tolerated well. With underlying ongoing medical multiple complex issues and poor general condition, discussed with family for long-term acute care plans, the family agreed with the transfer. PLAN: manager of broadcast content was consulted. The patient subsequently ____ at the [facility] in ____ [place]. The patient was cleared for discharge. ____ is fair. DISCHARGE MEDICATION: Please medication reconciliation list. DISCHARGE INSTRUCTION: To be followed by primary MD and multispecialty team at the [facility] care facility. JOB# [id number]
== END 2016-10-21 23:00 | DRG 207 ==
LOC: ER 19:12 → TELE 10-04 00:15 → ICU 10-11 10:15
PROVIDERS: ADMIT Family Medicine; ATTEND Family Medicine
PROC: 0DB68ZX Excision of Stomach, Via Natural or Artificial Opening Endoscopic, Diagnostic (ICD-10-PCS; 2016-10-08)
PROC: 0DB98ZX Excision of Duodenum, Via Natural or Artificial Opening Endoscopic, Diagnostic (ICD-10-PCS; 2016-10-08)
PROC: 0DBL8ZX Excision of Transverse Colon, Via Natural or Artificial Opening Endoscopic, Diagnostic (ICD-10-PCS; 2016-10-08)
PROC: 3E0G8GC Introduction of Other Therapeutic Substance into Upper GI, Via Natural or Artificial Opening Endoscopic (ICD-10-PCS; 2016-10-08)
PROC: 5A1955Z Respiratory Ventilation, Greater than 96 Consecutive Hours (ICD-10-PCS; 2016-10-11)
PROC: 0BH17EZ Insertion of Endotracheal Airway into Trachea, Via Natural or Artificial Opening (ICD-10-PCS; 2016-10-11)
PROC: 30233N1 Transfusion of Nonautologous Red Blood Cells into Peripheral Vein, Percutaneous Approach (ICD-10-PCS; 2016-10-12)
PROC: 0DH68UZ Insertion of Feeding Device into Stomach, Via Natural or Artificial Opening Endoscopic (ICD-10-PCS; principal; 2016-10-21)
DX: J69.0 Pneumonitis due to inhalation of food and vomit (principal); J96.01 Acute respiratory failure with hypoxia; G93.40 Encephalopathy, unspecified; N17.9 Acute kidney failure, unspecified; K56.69 Other intestinal obstruction; E46 Unspecified protein-calorie malnutrition; I13.0 Hypertensive heart and chronic kidney disease with heart failure and stage 1 through stage 4 chronic kidney disease, or unspecified chronic kidney disease; I50.42 Chronic combined systolic (congestive) and diastolic (congestive) heart failure; I42.9 Cardiomyopathy, unspecified; I47.1 Supraventricular tachycardia; E87.5 Hyperkalemia; E83.51 Hypocalcemia; N18.9 Chronic kidney disease, unspecified; E03.9 Hypothyroidism, unspecified; E78.5 Hyperlipidemia, unspecified; R13.10 Dysphagia, unspecified; F29 Unspecified psychosis not due to a substance or known physiological condition; E11.22 Type 2 diabetes mellitus with diabetic chronic kidney disease; D63.1 Anemia in chronic kidney disease; F02.80 Dementia in other diseases classified elsewhere, unspecified severity, without behavioral disturbance, psychotic disturbance, mood disturbance, and anxiety; K44.9 Diaphragmatic hernia without obstruction or gangrene; G30.9 Alzheimer's disease, unspecified; D12.3 Benign neoplasm of transverse colon; K29.70 Gastritis, unspecified, without bleeding; J20.9 Acute bronchitis, unspecified; M81.0 Age-related osteoporosis without current pathological fracture; F32.9 Major depressive disorder, single episode, unspecified; D50.9 Iron deficiency anemia, unspecified; I69.30 Unspecified sequelae of cerebral infarction; W19.XXXA Unspecified fall, initial encounter; Y92.89 Other specified places as the place of occurrence of the external cause; Y99.8 Other external cause status; Z79.4 Long term (current) use of insulin; Z88.8 Allergy status to other drugs, medicaments and biological substances; Z68.30 Body mass index [BMI] 30.0-30.9, adult; Z95.1 Presence of aortocoronary bypass graft
CPT/HCPCS: 36415-UA; 36600-90; 70450-TC; 71010-TC; 72125-TC; 74000-TC; 76770-TC; 80048-TC; 80053-TC; 80061-TC; 81001-TC; 81050-TC; 82270-TC; 82378-90; 82575-TC; 82803-TC; 82948-90; 83036-90; 83540-90; 83550-90; 83735-TC; 83880-TC; 83970-90; 84100-TC; 84156-TC; 84443-TC; 84484-TC; 85007-TC; 85025-TC; 85027-TC; 85610-TC; 85730-TC; 86592-TC; 86850-TC; 86900-TC; 86901-TC; 86922-TC; 87230-TC; 88305-90; 88312-90; 90799; 93005; 94002; 94003; 94660; 94667; 94668; 94760; 96375; 96379; 99201; C9113; J0456; J0610; J0690; J0696; J0885; J1815; J1940; J2060; J2250; J2543; J2704; J7030; J7040; J7613; P9016; X3401; X7704; Z7506; Z7610